=== PATIENT | female | born 1950 | race Caucasian/White ===

== ENCOUNTER 2019-02-28 12:53 | Inpatient (IN) | payer MEDICARE, BC ==
--- OUTSIDE RECORDS SUMMARY | 2019-02-28 13:10 | XMS REPORT | Continuity of Care Document ---
:1950 External Reference #:[id number] Author Name Sol Thorpe M.D., R.D. Address [address] [place] [address] Care Team Providers Name Role Phone Sol Thorpe M.D., RTrina Care Team Information Hyperbaric Tech Unavailable Payers Date Identification Numbers Payment Provider Subscriber Effective: 2017 Policy Number: [id number] Medicare - Bswny Umd Alta Ramos PayID: [id number] [address] [place] [address] Policy Number: [id number] [facility] Oneal Ramos Group Name: Brandon [address] PayID: [id number] [place] [address] Problems Active Problems Provider Date Hypothyroidism Sol Thorpe M.D., RTrina Onset: 01/17/2013 Depressive disorder Sol Thorpe M.D., RKadenDKaden Onset: 01/17/2013 Mixed hyperlipidemia Sol Thorpe M.D., RTrina Onset: 01/17/2013 Tobacco user Sol Thorpe M.D., RTrina Onset: 01/17/2013 Raynaud's disease Sol Thorpe M.D., R.DKaden Onset: 01/17/2013 Family History Date Family Member(s) Observation Comments General 5 Siblings-- One Sister Who Is Hypothyroid. Others Are Well., One Older Sibling The Rest Are Younger Father due to Airplane Crash Age 50 () Mother Hypothyroidism Mother Arthritis Social History Type Date Description Comments Sex Unknown Marital Status Patient is Living Situation Lives with spouse and sons Diet Diet with 3-4 fruits and veggies per day. Too much fat in her diet. She eats a meat potato and vegetable type diet. Not enough raw food. Some cheese and yogurt for calcium. 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 Now she will sneak a cigarette puff a few times a week. Alcohol weekend beer drinker 6-8 . Tobacco Use Start: Unknown End: Patient is a former smoker Unknown Drug Use Does not currently use illegal drugs Smoking Status Reviewed: 02/02/19 Patient is a former smoker Daily Caffeine Drinks on average 3 cups of coffee a day Exercise Type/Frequency No regular exercise. Current Sun Exposure Moderate amount of sun exposure. Does not use sunscreen. Has seen Dr. Roberts in the past Seat Belt/Car Seat Always uses a seat belt Currently Active The patient is currently sexually active occasionally. STD's No STD history Allergies, Adverse Reactions, Alerts Active Allergies Reaction Severity Comments Date PCN 11/19/2004 Medications Active Medications SIG Qnty Indications Ordering Date Provider Omeprazole 1 by mouth every 30caps R10.13 Sol Thorpe, 02/26/2019 20mg day M.Otoniel, R.D. Capsules Levothyroxine Sodium 1 by mouth every 90tabs E03.8 Sol Thorpe, 2017 day Severino.Otoniel, R.D. 100mcg Tablets Amlodipine Besylate Take One Tablet 30tabs Sol Thorpe, 08/26/2014 5mg By Mouth Every M.D., R.D. 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 150mg Tablets ER 24HR Day Multivitamin & Sol Thorpe, 11/23/2010 Mineral M.Otoniel, R.D. Pill Aspir-81 Cristy Hailey 08/02/[address] Tony Terrell Celexa Take 1/2 Tablet 30tabs F32.9 Sol Thorpe, 06/14/2007 20mg Tablets By Mouth Once Aravind, R.D. Daily History Medications Azithromycin take 2 tablets by 6tabs J18.9 Chet 02/02/2019 - 250mg mouth one time MD Lawanda 02/23/2019 Tablets then take one daily for 4 days SMZ-TMP DS 1 po bid for 5 10tabs Sol Thorpe, 03/26/2015 - 800-160mg days Aravind, R.D. 03/26/2015 Tablets Nitrofurantoin 1 po bid 10caps Sol Thorpe, 03/26/2015 - Macrocrystal Aravind, R.D. 09/20/2018 100mg Capsules Ciprofloxacin HCL 1 by mouth twice a 10tabs Sol Thorpe, 03/25/2015 - 250mg day Aravind, R.D. 03/26/2015 Tablets Prednisone take 2 tablets 10tabs Sol Thorpe, 12/30/2014 - 20mg Tablets daily for 5 days Aravind, R.DKaden 03/24/2015 Zostavax pls administesr QS Sol Thorpe, 08/26/2014 - vaccine Aravind, R.D. 03/24/2015 63919Ltx/0.65ML Solution Rec Econazole Nitrate apply to rash area 30g 110.4 Sol Thorpe, 04/29/2014 - 1% twice a day as Aravind, R.D. 03/24/2015 Cream needed Levothyroxine Sodium Take One Tablet By 90tabs E03.8 Sol Thorpe, 11/13 - Mouth Every Day Aravind, R.D. 10/02/2018 112mcg Tablets Chantix Use as Directed QS 305.1 Sol Thorpe, 08/20/2008 - Starter Pack Aravind, R.D. 12/04/2012 Misc Synthroid 1 PO qd 90tabs 244.8 Durga Ivy M.D. 12/23/2007 - 100mcg 11/13/2009 Tablets Synthroid one po qd 30tabs 244.8 Cristy Hailey 06/14/2007 - 125mcg Nidhi, 07/24/2008 Tablets [facility] Zithromax Z-Joselito two by mouth every 6tabs Sol Thorpe, 11/19/2004 - 250mg day today and then M.Otoniel, R.D. 03/24/2015 Tablets one by mouth every day for 4 days [place]ort Mdi 4 Puffs bid as 20Grams Cassie Payne 11/19/2004 - Inhaler Directed For 2-4 Blegen, Aravind 08/02/2007 Weeks, Rinse Mouth After Vitamins A & D 1 po Qd Unknown - 09/20/2018 5000-400Unit Capsules Immunizations CPT Code Status Date Vaccine Lot # 11617 Given 09/20/2018 Prevnar-13 Pneumococcal Conjugate Vaccine [id number] Given 10/28/2014 Pneumovax 23 (PPSV23) 65+ years or high risk 2 to [id number] 66 year old 40966 Given 09/03/2014 Zoster Vaccine [id number] Given 08/08/2007 Tdap (Adacel) [id number] Ordered 07/17/2010 Influenza Vaccine-Preservative Free 3 Yrs And Above Vital Signs Date Vital Result Comment 02/26/2019 2:51pm Weight 117.00 lb Weight 53.071 kg BP Systolic 118 mmHg BP Diastolic 64 mmHg Heart Rate 72 /min Body Temperature 97.5 F Respiratory Rate 16 /min 02/23/2019 1:19pm Weight 113.00 lb Weight 51.257 kg BP Systolic 110 mmHg BP Diastolic 70 mmHg Heart Rate 63 /min Body Temperature 98.9 F Respiratory Rate 16 /min O2 % BldC Oximetry 99 % 02/02/2019 2:54pm Weight 116.00 lb Weight 52.618 kg BP Systolic 102 mmHg BP Diastolic 64 mmHg Heart Rate 60 /min Body Temperature 98.8 F Respiratory Rate 20 /min O2 % BldC Oximetry 96 % 09/20/2018 4:18pm Weight 120.00 lb Weight 54.432 kg BP Systolic 142 mmHg BP Diastolic 86 mmHg Heart Rate 70 /min Body Temperature 98.8 F Respiratory Rate 16 /min Height 63.5 inches 5'3.50" BMI (Body Mass Index) 20.9 kg/m2 O2 % BldC Oximetry 99 % 03/24/2015 9:35am Weight 163.00 lb Weight 73.937 kg BP Systolic 150 mmHg BP Diastolic 82 mmHg Heart Rate 72 /min Height 65 inches 5'5" BMI (Body Mass Index) 27.1 kg/m2 12/30/2014 11:58am Weight 160.00 lb Weight 72.576 kg BP Systolic 100 mmHg BP Diastolic 70 mmHg Heart Rate 30 /min Body Temperature 97.9 F O2 % BldC Oximetry 89 % On Room Air/98% on pawel 10/28/2014 4:15pm Weight 160.00 lb Weight 72.576 kg BP Systolic 144 mmHg BP Diastolic 76 mmHg Heart Rate 72 /min 08/26/2014 12:59pm Weight 154.00 lb Weight 69.854 kg BP Systolic 144 mmHg BP Diastolic 86 mmHg Heart Rate 84 /min Height 64.5 inches 5'4.50" BMI (Body Mass Index) 26.0 kg/m2 06/19/2014 2:50pm Weight 163.00 lb Weight 73.937 kg BP Systolic 180 mmHg Pawel 160/80 BP Diastolic 90 mmHg Pawel 160/80 Heart Rate 86 /min O2 % BldC Oximetry 98 % 04/29/2014 9:18am Weight 164.00 lb Weight 74.390 kg BP Systolic 122 mmHg BP Diastolic 100 mmHg Heart Rate 76 /min 12/04/2012 4:30pm Weight 162.00 lb Weight 73.483 kg BP Systolic 130 mmHg BP Diastolic 74 mmHg Heart Rate 68 /min 11/23/2010 1:29pm Weight 157.00 lb Weight 71.215 kg BP Systolic 156 mmHg BP Diastolic 86 mmHg Heart Rate 88 /min Height 64.5 inches 5'4.50" BMI (Body Mass Index) 26.5 kg/m2 11/13/2009 9:55am Weight 164.00 lb Weight 74.390 kg BP Systolic 128 mmHg BP Diastolic 78 mmHg Heart Rate 76 /min Height 64.25 inches 5'4.25" BMI (Body Mass Index) 27.9 kg/m2 08/20/2008 8:57am Weight 161.00 lb Weight 73.030 kg BP Systolic 134 mmHg BP Diastolic 74 mmHg Heart Rate 88 /min Height 64.5 inches 5'4.50" BMI (Body Mass Index) 27.2 kg/m2 08/02/2007 11:47am Weight 162.00 lb Weight 73.483 kg BP Systolic 124 mmHg BP Diastolic 78 mmHg Heart Rate 84 /min Height 64.75 inches 5'4.75" BMI (Body Mass Index) 27.2 kg/m2 06/14/2007 2:59pm Weight 160.00 lb Weight 72.576 kg BP Systolic 110 mmHg BP Diastolic 80 mmHg Heart Rate 80 /min 11/24/2004 10:40am Weight 169.00 lb Weight 76.658 kg BP Systolic 130 mmHg BP Diastolic 70 mmHg Heart Rate 80 /min 11/19/2004 12:28pm Weight 168.00 lb Weight 76.205 kg BP Systolic 128 mmHg BP Diastolic 80 mmHg Heart Rate 93 /min Body Temperature 98.1 F O2 % BldC Oximetry 96 % 06/18/2003 3:52pm Weight 154.00 lb Weight 69.854 kg BP Systolic 130 mmHg BP Diastolic 80 mmHg Body Temperature 99.0 F Results Test Date Facility Test Result H/L Range Note CBC Auto Diff 02/23/2019 [facility] White Blood 7.2 10^3/uL N 3.5-10.8 [phone] Count Red Blood Count 2.50 10^6/uL Low 3.70-4.87 Hemoglobin 7.7 g/dL Low 12.0-16.0 Hematocrit 24 % Low 35-47 Mean Corpuscular Volume 95 fL N 80-97 Mean Corpuscular Hemoglobin 31 pg N 27-31 Mean Corpuscular HGB Conc 32 g/dL N 31-36 Red Cell Distribution Width 18 % High 10.5-15 Platelet Count 315 10^3/uL N 150-450 Mean Platelet Volume 8.4 fL N 7.4-10.4 Abs Neutrophils 5.0 10^3/uL N 1.5-7.7 Abs Lymphocytes 1.4 10^3/uL N 1.0-4.8 Abs Monocytes 0.4 10^3/uL N 0-0.8 Abs Eosinophils 0.3 10^3/uL N 0-0.6 Abs Basophils 0.1 10^3/uL N 0-0.2 Abs Nucleated RBC 0.0 10^3/uL Granulocyte % 68.5 % Lymphocyte % 20.1 % Monocyte % 5.6 % Eosinophil % 4.0 % Basophil % 1.8 % Nucleated Red Blood Cells % 0.1 Laboratory test 02/23/2019 [facility] Vitamin B12 427 pg/mL N 180-914 1 finding [phone] Vitamin D Total 25(Oh) 62.4 ng/mL High 20-50 2 Lyme Screen W/ Reflex To WB Negative Negative Basic Metabolic 02/23/2019 [facility] Sodium 134 mmol /L Low 135-145 Panel [phone] Potassium 4.1 mmol/L N 3.5-5.0 Chloride 102 mmol/L N 101-111 Co2 Carbon Dioxide 25 mmol/L N 22-32 Anion Gap 7 mmol/L N 2-11 Glucose 88 mg/dL N 70-100 Blood Urea Nitrogen 19 mg/dL N 6-24 Creatinine 0.88 mg/dL N 0.51-0.95 BUN/Creatinine Ratio 21.6 High 8-20 Calcium 9.8 mg/dL N 8.6-10.3 Egfr Non- 64.3 >60 Egfr 77.8 >60 3 Laboratory test 01/26/2019 [facility] TSH (Thyroid 0.93 N 0.34-5.60 finding [phone] Stimulating mcIU/mL Horm) Free T4 1.13 ng/dL High 0.61-1.12 Total T3 63 ng/dL Low 87-178 Laboratory test 11/17/2018 [facility] Surgical SEE RESULT 4 finding [phone] Interface Order BELOW Laboratory test 09/29/2018 [facility] TSH (Thyroid 0.10 Low 0.34- finding [phone] Stimulating mcIU/mL 5.60 Horm) CBC Auto Diff 09/29/2018 [facility] White Blood 4.6 10^3/uL N 3.5-5 [phone] Count 0.8 Red Blood Count 4.19 10^6/uL N 4.00-5.40 Hemoglobin 12.2 g/dL N 12.0-16.0 Hematocrit 38 % N 35-47 Mean Corpuscular Volume 91 fL N 80-97 Mean Corpuscular Hemoglobin 29 pg N 27-31 Mean Corpuscular HGB Conc 32 g/dL N 31-36 Red Cell Distribution Width 20 % High 10.5-15 Platelet Count 264 10^3/uL N 150-450 Mean Platelet Volume 8.2 fL N 7.4-10.4 Abs Neutrophils 2.9 10^3/uL N 1.5-7.7 Abs Lymphocytes 1.0 10^3/uL N 1.0-4.8 Abs Monocytes 0.4 10^3/uL N 0-0.8 Abs Eosinophils 0.2 10^3/uL N 0-0.6 Abs Basophils 0.1 10^3/uL N 0-0.2 Abs Nucleated RBC 0 10^3/uL Granulocyte % 62.8 % Lymphocyte % 21.6 % Monocyte % 9.7 % Eosinophil % 4.7 % Basophil % 1.2 % Nucleated Red Blood Cells % 0 Comp Metabolic Panel 09/29/2018 [facility] Sodium 136 mmol/L N 135-145 [phone] Potassium 4.2 mmol/L N 3.5-5.0 Chloride 96 mmol/L Low 101-111 Co2 Carbon Dioxide 31 mmol/L N 22-32 Anion Gap 9 mmol/L N 2-11 Glucose 81 mg/dL N 70-100 Blood Urea Nitrogen 13 mg/dL N 6-24 Creatinine 0.66 mg/dL N 0.51-0.95 BUN/Creatinine Ratio 19.7 N 8-20 Calcium 9.4 mg/dL N 8.6-10.3 Total Protein 6.8 g/dL N 6.4-8.9 Albumin 4.1 g/dL N 3.2-5.2 Globulin 2.7 g/dL N 2-4 Albumin/Globulin Ratio 1.5 N 1-3 Total Bilirubin 0.40 mg/dL N 0.2-1.0 Alkaline Phosphatase 104 U/L N 34-104 Alt 25 U/L N 7-52 Ast 40 U/L High 13-39 Egfr Non- 89.6 >60 Egfr 108.4 >60 5 Lipid Profile 09/29/2018 [facility] Triglycerides 68 mg/dL 6 (Trig/Chol/HDL) [phone] Cholesterol 151 mg/dL 7 HDL Cholesterol 85.8 mg/dL 8 LDL Cholesterol 52 mg/dL 9 Laboratory test 08/21/2018 [facility] Erythrocyte Sed 19 mm/Hr N 0-40 finding [phone] Rate Hepatitis B Surface Ag Nonreactive Nonreactive Hepatitis B Core AB Igm Nonreactive Nonreactive Hepatitis A AB Igm Nonreactive Nonreactive Hepatitis C Antibody High Reactive Abnormal Nonreactive 10 Creatine Kinase(CK) 73 U/L N 10-223 C Reactive Protein 1.11 mg/L N <8.01 Rheumatoid Factor 137 IU/mL High <15 Hepatitis C Rna Quant Undetected IU/mL Undetected 11 Connective Tissue 08/21/2018 [facility] Anti-Nuclear 0.4 U 12 Panel [phone] Antibody Cyclic Citrullinated Peptide <15.6 U 13 Interpretation See Comment 14 Laboratory test 08/21/2018 [facility] Vitamin D, 1,25 TNP () 15 finding [phone] Dihydroxy Connective Tissue 08/21/2018 [facility] Anti-Nuclear 0.4 U 16 Panel [phone] Antibody Cyclic Citrullinated Peptide <15.6 U 17 Interpretation See Comment 18 Connective Tissue 08/21/2018 [facility] Anti-Nuclear 0.4 U 19 Panel [phone] Antibody Cyclic Citrullinated Peptide <15.6 U 20 Interpretation See Comment 21 Laboratory test 08/21/2018 [facility] Vitamin D TNP () 22 finding [phone] 1,25-Dihydroxy 1,25 Dihydroxy 08/21/2018 [facility] Vitamin D 1,25 ( Oh) 18 pg/mL 18-72 Vitamin D [phone] 2, Total Vitamin D3 1,25 (Oh) 2 18 pg/mL Vitamin D2 1,25 (Oh) 2 <8 pg/mL 23 Connective Tissue 08/21/2018 [facility] Anti-Nuclear 0.4 U 24 Panel [phone] Antibody Cyclic Citrullinated Peptide <15.6 U 25 Interpretation See Comment 26 Connective Tissue 08/21/2018 [facility] Anti-Nuclear 0.4 U 27 Panel [phone] Antibody Cyclic Citrullinated Peptide <15.6 U 28 Interpretation See Comment 29 Connective Tissue 08/21/2018 [facility] Anti-Nuclear 0.4 U 30 Panel [phone] Antibody Cyclic Citrullinated Peptide <15.6 U 31 Interpretation See Comment 32 Connective Tissue 08/21/2018 [facility] Anti-Nuclear 0.4 U 33 Panel [phone] Antibody Cyclic Citrullinated Peptide <15.6 U 34 Interpretation See Comment 35 Laboratory test 03/24/2015 [facility] Urine Culture And SEE RESULT 36 finding [phone] Sensitivities BELOW Laboratory test 03/24/2015 [facility] Cytology Interface SEE RESULT 37 finding [phone] Order BELOW HPV Rna w/Reflex Genotype Negative N Negative 38 Urine DIP 03/24/2015 [facility] Specific [place] 1.005 Low 1.01-1.02 [phone] Urine pH 7 High 5-6 Leukocytes + Neg Urine Nitrites NEG Neg Total Protein, Urine NEG Neg Urine Glucose NORM Norm Urine Ketones NEG Neg Urobilinogen NORM Norm Urine Bilirubin + Neg Urine Blood TRACE Neg Basic Metabolic 02/07/2015 [facility] Sodium 138 mmol /L N 133-145 Panel [phone] Potassium 4.5 mmol/L N 3.5-5.0 Chloride 105 mmol/L N 101-111 Co2 Carbon Dioxide 26 mmol/L N 22-32 Anion Gap 7 mmol/L N 2-11 Glucose 100 mg/dL N 70-100 Blood Urea Nitrogen 22 mg/dL N 6-24 Creatinine 0.80 mg/dL N 0.51-0.95 BUN/Creatinine Ratio 27.5 High 8-20 Calcium 10.2 mg/dL N 8.6-10.3 Egfr Non- 72.7 N >60 Egfr 93.5 N >60 39 CBC Auto Diff 12/30/2014 [facility] White Blood 10.3 10^3/uL N 4.8-10.8 [phone] Count Red Blood Count 4.48 10^6/uL N 4.0-5.4 Hemoglobin 14.2 g/dL N 12.0-16.0 Hematocrit 43 % N 35-47 Mean Corpuscular Volume 96 fL N 80-97 Mean Corpuscular Hemoglobin 32 pg High 27-31 Mean Corpuscular HGB Conc 33 g/dL N 31-36 Red Cell Distribution Width 14 % N 10.5-15 Platelet Count 259 10^3/uL N 150-450 Mean Platelet Volume 9 um3 N 7.4-10.4 Abs Neutrophils 5.6 10^3/uL N 1.5-7.7 Abs Lymphocytes 3.5 10^3/uL N 1.0-4.8 Abs Monocytes 0.9 10^3/uL High 0-0.8 Abs Eosinophils 0.3 10^3/uL N 0-0.6 Abs Basophils 0.1 10^3/uL N 0-0.2 Abs Nucleated RBC 0.03 10^3/uL N Granulocyte % 54.6 % N 38-83 Lymphocyte % 33.8 % N 25-47 Monocyte % 8.4 % N 1-9 Eosinophil % 2.6 % N 0-6 Basophil % 0.6 % N 0-2 Nucleated Red Blood Cells % 0.3 N Laboratory test 12/30/2014 [facility] TSH (Thyroid 0.42 IU/mL N 0.34-5.60 finding [phone] Stimulating Horm) Comp Metabolic 12/30/2014 [facility] Sodium 133 mmol/ L N 133-145 Panel [phone] Potassium 4.1 mmol/L N 3.5-5.0 Chloride 98 mmol/L Low 101-111 Co2 Carbon Dioxide 26 mmol/L N 22-32 Anion Gap 9 mmol/L N 2-11 Glucose 97 mg/dL N 70-100 Blood Urea Nitrogen 13 mg/dL N 6-24 Creatinine 0.81 mg/dL N 0.51-0.95 BUN/Creatinine Ratio 16.0 N 8-20 Calcium 9.7 mg/dL N 8.6-10.3 Total Protein 6.7 g/dL N 6.4-8.9 Albumin 3.8 g/dL N 3.2-5.2 Globulin 2.9 g/dL N 2-4 Albumin/Globulin Ratio 1.3 N 1-3 Total Bilirubin 0.50 mg/dL N 0.2-1.0 Alkaline Phosphatase 73 U/L N 34-104 Alt 25 U/L N 7-52 Ast 21 U/L N 13-39 Egfr Non- 71.6 N >60 Egfr 92.1 N >60 40 Laboratory test 12/30/2014 [facility] Creatine 81 U/ L N 10-223 finding [phone] Kinase Type & Screen 07/31/2014 [facility] Patient Blood O Positive N [phone] Type Antibody Screen NEGATIVE N Basic Metabolic 07/31/2014 [facility] Sodium 137 mmol /L N 133-145 Panel [phone] Potassium 4.2 mmol/L N 3.7-5.6 Chloride 105 mmol/L N 101-111 Co2 Carbon Dioxide 25 mmol/L N 22-32 Anion Gap 7 mmol/L N 2-11 Glucose 94 mg/dL N 70-100 Blood Urea Nitrogen 13 mg/dL N 6-24 Creatinine 0.71 mg/dL N 0.51-0.95 BUN/Creatinine Ratio 18.3 N 8-20 Calcium 9.9 mg/dL N 8.6-10.3 Egfr Non- 83.7 N >60 Egfr 107.6 N >60 41 CBC Auto Diff 07/31/2014 [facility] White Blood 6.8 10^3/uL N 4.8-10.8 [phone] Count Red Blood Count 4.01 10^6/uL N 4.0-5.4 Hemoglobin 13.5 g/dL N 12.0-16.0 Hematocrit 40 % N 35-47 Mean Corpuscular Volume 99 fL High 80-97 Mean Corpuscular Hemoglobin 34 pg High 27-31 Mean Corpuscular HGB Conc 34 g/dL N 31-36 Red Cell Distribution Width 14 % N 10.5-15 Platelet Count 279 10^3/uL N 150-450 Mean Platelet Volume 8 um3 N 7.4-10.4 Abs Neutrophils 4.0 10^3/uL N 1.5-7.7 Abs Lymphocytes 2.0 10^3/uL N 1.0-4.8 Abs Monocytes 0.3 10^3/uL N 0-0.8 Abs Eosinophils 0.3 10^3/uL N 0-0.6 Abs Basophils 0.1 10^3/uL N 0-0.2 Abs Nucleated RBC 0 10^3/uL N Granulocyte % 59.3 % N 38-83 Lymphocyte % 29.8 % N 25-47 Monocyte % 5.0 % N 1-9 Eosinophil % 4.6 % N 0-6 Basophil % 1.3 % N 0-2 Nucleated Red Blood Cells % 0 N Laboratory test 07/01/2014 [facility] Inr 0.84 Low 0.85-1.06 finding [phone] Activated Partial Thrombo Time 20.1 seconds Low 24.0-36.1 Laboratory test 06/10/2014 [facility] Hepatitis C Undetected N Undetected 42 finding [phone] Rna IU/mL Quantitative Cryoglobulin & 06/07/2014 [facility] Cryoglobulin Negative N Negative 43 Cryofibrinogen [phone] Cryofibrinogen Negative N Negative 44 Vitamin D, 25 06/07/2014 [facility] 25-Hydroxy Vitamin <4.0 ng/mL N Hydroxy [phone] D2 25-Hydroxy Vitamin D3 42 ng/mL N 25-Hydroxy Vitamin D Total 42 ng/mL N 45 Comp Metabolic Panel 06/07/2014 [facility] Sodium 136 mmol/L N 133-145 [phone] Potassium 3.5 mmol/L Low 3.7-5.6 Chloride 104 mmol/L N 101-111 Co2 Carbon Dioxide 23 mmol/L N 22-32 Anion Gap 9 mmol/L N 2-11 Glucose 119 mg/dL High 70-100 Blood Urea Nitrogen 11 mg/dL N 6-24 Creatinine 0.77 mg/dL N 0.51-0.95 BUN/Creatinine Ratio 14.3 N 8-20 Calcium 9.5 mg/dL N 8.6-10.3 Total Protein 7.0 g/dL N 6.4-8.9 Albumin 4.2 g/dL N 3.2-5.2 Globulin 2.8 g/dL N 2-4 Albumin/Globulin Ratio 1.5 N 1-3 Total Bilirubin 0.40 mg/dL N 0.2-1.0 Alkaline Phosphatase 61 U/L N 34-104 Alt 23 U/L N 7-52 Ast 19 U/L N 13-39 Egfr Non- 76.2 N >60 Egfr 98.0 N >60 46 Laboratory test 06/07/2014 [facility] CRP High 1.73 mg/L N 47 finding [phone] Sensitivity CBC Auto Diff 06/07/2014 [facility] White Blood Count 8.5 N 4.8-10 [phone] 10^3/uL .8 Red Blood Count 3.83 10^6/uL Low 4.0-5.4 Hemoglobin 13.0 g/dL N 12.0-16.0 Hematocrit 38 % N 35-47 Mean Corpuscular Volume 99 fL High 80-97 Mean Corpuscular Hemoglobin 34 pg High 27-31 Mean Corpuscular HGB Conc 34 g/dL N 31-36 Red Cell Distribution Width 13 % N 10.5-15 Platelet Count 250 10^3/uL N 150-450 Mean Platelet Volume 8 um3 N 7.4-10.4 Abs Neutrophils 4.6 10^3/uL N 1.5-7.7 Abs Lymphocytes 2.8 10^3/uL N 1.0-4.8 Abs Monocytes 0.5 10^3/uL N 0-0.8 Abs Eosinophils 0.5 10^3/uL N 0-0.6 Abs Basophils 0.1 10^3/uL N 0-0.2 Abs Nucleated RBC 0.01 10^3/uL N Granulocyte % 54.5 % N 38-83 Lymphocyte % 32.9 % N 25-47 Monocyte % 6.3 % N 1-9 Eosinophil % 5.5 % N 0-6 Basophil % 0.8 % N 0-2 Nucleated Red Blood Cells % 0.1 N Laboratory test 06/07/2014 [facility] Erythrocyte Sed 11 mm/Hr N 0-30 finding [phone] Rate Hepatitis B Surface Antigen Nonreactive N Nonreactive Hepatitis C Antibody High Reactive Abnormal Nonreactive 48 Protein 06/07/2014 [facility] Total 7.1 g/dL N 6.3 - Electrophoresis [phone] Protein(Pep) 7.9 Albumin 3.4 g/dL N 3.4-4.7 Alpha-1 Globulin 0.3 g/dL N 0.1-0.3 Alpha-2 Globulin 1.1 g/dL Abnormal 0.6-1.0 Beta Globulin 1.1 g/dL N 0.7-1.2 Gamma Globulin 1.2 g/dL N 0.6-1.6 Albumin/Globulin Ratio 0.91 N Impression See Comment N 49 Laboratory test 04/29/2014 [facility] Anitha (Anti- Nuclear Negative N Negative finding [phone] AB) Screen Erythrocyte Sed Rate 11 mm/Hr N 0-30 Rheumatoid Factor 131 IU/mL Abnormal <15 50 Cyclic Citrullinated Pept IgG <15.6 U N 51 TSH (Thyroid Stimulating Horm) 0.34 IU/mL N 0.34-5.60 Total T3 0.99 ng/mL N 0.87-1.78 Free T4 1.09 ng/mL N 0.61-1.12 Laboratory test 12/05/2012 [facility] TSH (Thyroid 0.34 0.34-5.60 finding [phone] Stimulating Horm) miu/mL Lipid Profile 12/05/2012 [facility] Triglycerides 179 mg/dL 40-200 (Trig/Chol/HDL) [phone] Cholesterol 220 mg/dL High Less than 200 HDL Cholesterol 54 mg/dL 40-60 52 Cholesterol/HDL Ratio 4.1 Average 1-4.44 LDL Cholesterol 130.2 mg/dL High Less Than 100 53 Laboratory test 12/05/2012 [facility] Rheumatoid 318 IU/mL Abnormal <15 54 finding [phone] Factor Erythrocyte Sed Rate 8 mm/Hr 0-30 Antiha (Anti-Nuclear AB) Screen Negative Negative Lipid Profile 11/23/2010 [facility] Triglyceride 88 mg/dL 40-200 (Trig/Chol/HDL) [phone] Cholesterol 228 mg/dL High Less Than 200 55 High Density Lipoprotein 66 mg/dL High 40-60 56 Cholesterol/HDL Ratio 3.45 AVERAGE 1-4.44 Low Density Lipoprotein 144 mg/dL High Less Than 100 57 Laboratory test 11/23/2010 [facility] TSH 0.57 MIU/ ML 0.34-5.60 finding [phone] Comp Metabolic 11/23/2010 [facility] Sodium 137 mmol/ L 135-145 Panel [phone] Potassium 4.2 mmol/L 3.5-5.0 Chloride 104 mmol/L 101-111 Co2 (Carbon Dioxide) 24.0 mmol/L 22-32 Anion Gap 9.0 mmol/L 2-11 58 Glucose 93 mg/dL 70-100 BUN 12 mg/dL 6-24 Creatinine 0.70 mg/dL 0.50-1.40 One Over Creatinine 1.40 BUN/Creatinine Ratio 17.1 8-20 Calcium 9.9 mg/dL 8.1-9.9 Total Protein 7.8 GM/DL 6.2-8.1 Albumin 4.5 GM/DL 3.6-5.4 Globulin 3.3 GM/DL 2-4 Albumin/Globulin Ratio 1.4 1-3 Bilirubin Total 0.6 mg/dL 0.4-1.5 59 Alkaline Phosphatase 79 U/L 30-110 Alt (SGPT) 27 U/L 14-54 Ast (Sgot) 23 U/L 12-42 eGFR Non- 85.9 > 60 eGFR 110.5 > 60 60 Urine DIP 11/23/2010 [facility] House [facility] Leukocytes TRACE Neg (607)- - Urine Nitrites NEG Neg Urine pH 5 5-6 Total Protein, Urine NEG Neg Urine Glucose NORM Norm Urine Ketones NEG Neg Urobilinogen NORM Norm Urine Bilirubin NEG Neg Urine Blood NEG Neg Specific [place] NA Low 1.01-1.02 Laboratory test 11/23/2010 [facility] Cytology ------ 61 finding [phone] <SEE NOTE> Laboratory test 12/25/2009 [facility] TSH 0.410 uIU/ml 0.35 finding [phone] (Thyrotropin 0-5. ) 500 T-4 Free 1.2 ng/dL 0.8-1.8 Urine DIP 11/13/2009 In House Lab Leukocytes NEG Neg (607)- - Urine Nitrites NEG Neg Urine pH 5 5-6 Total Protein, Urine NEG Neg Urine Glucose NORM Norm Urine Ketones NEG Neg Urobilinogen NORM Norm Urine Bilirubin NEG Neg Urine Blood NEG Neg Specific [place] N/A Low 1.01-1.02 Laboratory test 11/13/2009 [facility] Thin Prep SEE NOTE 62 finding [phone] W/HPV(Lsil/DONOVAN/Asc) Lipid Panel 11/10/2009 [facility] Cholesterol, Total 183 <200 [phone] mg/dL Triglycerides 154 mg/dL Abnormal <150 HDL Cholesterol 44 mg/dL 40-60 Chol/HDL Cholesterol 4.2 63 LDL Cholesterol, Calc. 108 mg/dL Abnormal 64 LDL/HDL Cholesterol 2.5 65 Comprehensive 11/10/2009 [facility] Glucose 104 mg/dL High 70-100 Metabolic [phone] BUN 14 mg/dL 4-18 Creatinine, Serum 0.62 mg/dL 0.50-1.10 Sodium 140 mmol/L 136-146 Potassium 4.3 mmol/L 3.5-5.3 Chloride 109 mmol/L 98-110 Carbon Dioxide 26 mmol/L 20-32 Albumin 4.2 g/dL 3.5-4.7 Protein, Total 7.1 g/dL 6.4-8.3 Calcium 9.4 mg/dL 8.4-10.4 Alkaline Phosphatase 87 U/L 10-118 Sgot (Ast) 21 U/L 3-40 SGPT (Alt) 24 U/L 7-50 Bilirubin, Total 0.20 mg/dL Low 0.30-1.20 Laboratory 11/10/2009 [facility] TSH 3.000 0.350-5.500 test finding [phone] (Thyrotropin) uIU/ml GFR Calculated 11/10/2009 [facility] GFR (Calculated) >60 66 [phone] Laboratory 02/18/2009 [facility] TSH 1.460 0.350-5.500 test finding [phone] (Thyrotropin) uIU/ml T-4 Free 1.0 ng/dL 0.8-1.8 Surgical 09/06/2008 [facility] Surgical --- 67 Pathology [phone] Pathology <SEE NOTE> Lipid Profile 08/20/2008 [facility] Cholesterol, 224 mg/dL High 120 [phone] Total -20 0 HDL Cholesterol 58 mg/dL 40-60 LDL Cholesterol, Calc. 137 mg/dL AB 69 Triglycerides 145 mg/dL 70 LDL/HDL Cholesterol 2.4 71 Chol/HDL Cholesterol 3.9 72 Comprehensive Metabolic 08/20/2008 [facility] Glucose 90 mg /dL 70-100 [phone] BUN 18 mg/dL 4-18 Creatinine, Serum 0.9 mg/dL 0.5-1.2 Sodium 140 mmol/L 136-146 Potassium 4.2 mmol/L 3.5-5.3 Chloride 110 mmol/L 98-110 Carbon Dioxide 22 mmol/L 20-32 Albumin 4.8 g/dL High 3.5-4.7 Protein, Total 7.4 g/dL 6.4-8.3 Calcium 10.1 mg/dL 8.4-10.4 Alkaline Phosphatase 85 U/L 10-118 Sgot (Ast) 24 U/L 3-40 SGPT (Alt) 23 U/L 7-50 Bilirubin, Total 0.40 mg/dL 0.30-1.20 Laboratory test 08/20/2008 [facility] GFR (Calculated) >60 73 finding [phone] Laboratory test 08/20/2008 [facility] Thin Prep SEE NOTE 74 finding [phone] W/HPV(Lsil/DONOVAN/As c) Urine DIP 08/20/2008 [facility] Leukocytes NEG Neg (607)- - Urine Nitrites NEG Neg Urine pH 5 5-6 Total Protein, Urine NEG Neg Urine Glucose NORM Norm Urine Ketones NEG Neg Urobilinogen NORM Norm Urine Bilirubin NEG Neg Urine Blood NEG Neg Specific [place] NA Low 1.01-1.02 Laboratory test 07/03/2008 [facility] Thyroxine Free 0.74 NG/ML 0.61-1.24 75 finding [phone] TSH 0.90 MIU/ML 0.34-5.60 Laboratory 12/22/2007 [facility] TSH 0.320 Low 0.350- 5.500 test finding [phone] (Thyrotropin) uIU/ml T-4 Free 1.1 ng/dL 0.8-1.8 Laboratory test 08/08/2007 [facility] Vitamin B-12 801 pg/ mL 76 finding [phone] Laboratory test 08/02/2007 [facility] Thin Prep SEE NOTE 77 finding [phone] W/HPV(Lsil/DONOVAN/A sc) Urine DIP 08/02/2007 [facility] Leukocytes NEG Neg (607)- - Urine Nitrites NEG Neg Urine pH 5 5-6 Total Protein, Urine NEG Neg Urine Glucose NORM Norm Urine Ketones NEG Neg Urobilinogen NORM Norm Urine Bilirubin NEG Neg Urine Blood NEG Neg Specific [place] NORM Low 1.01-1.02 Laboratory 07/26/2007 [facility] TSH 0.410 0.350-5.500 test finding [phone] (Thyrotropin) uIU/ml Lipid Profile 07/26/2007 [facility] Cholesterol, 210 High 120-200 78 [phone] Total mg/dL HDL Cholesterol 47 mg/dL 40-60 LDL Cholesterol, Calc. 139 mg/dL AB 79 Triglycerides 120 mg/dL 80 LDL/HDL Cholesterol 3.0 81 Chol/HDL Cholesterol 4.5 82 Comprehensive 07/26/2007 [facility] Glucose 115 mg/dL High 70-100 Metabolic [phone] BUN 17 mg/dL 4-18 Creatinine, Serum 1.0 mg/dL 0.5-1.2 Sodium 141 mmol/L 136-146 Potassium 4.6 mmol/L 3.5-5.3 Chloride 110 mmol/L 98-110 Carbon Dioxide 23 mmol/L 20-32 Albumin 4.5 g/dL 3.5-4.7 Protein, Total 7.1 g/dL 6.4-8.2 Calcium 9.9 mg/dL 8.4-10.4 Alkaline Phosphatase 94 U/L 10-118 Sgot (Ast) 21 U/L 3-40 SGPT (Alt) 22 U/L 7-50 Bilirubin, Total 0.30 mg/dL 0.30-1.20 Laboratory test 07/26/2007 [facility] GFR (Calculated) >60 83 finding [phone] Laboratory test 11/19/2004 [facility] Oximetry - Single 96% finding (607)- - Study 1 Normal Range 180 to 914 Indeterminate Range 145 to 180 Deficient Range <145 2 Total 25-Hydroxyvitamin D2 and D3 (25-OH-VitD) <10 ng/mL (severe deficiency) 10-19 ng/mL (mild to moderate deficiency) 20-50 ng/mL (optimum levels) 51-80 ng/mL (increased risk of hypercalciuria) >80 ng/mL (toxicity possible) 3 Because ethnic data is not always readily available, this report includes an eGFR for both -Americans and non- Americans. The National Kidney Disease Education Program (NKDEP) does not endorse the use of the MDRD equation for patients that are not between the ages of 18 and 70, are , have extremes of body size, muscle mass, or nutritional status, or are non- or non-. According to the National Kidney Foundation, irrespective of diagnosis, the stage of the disease is based on the level of kidney function: Stage Description GFR(mL/min/1.73 m(2)) 1 Kidney damage with normal or decreased GFR 90 2 Kidney damage with mild decrease in GFR 60-89 3 Moderate decrease in GFR 30-59 4 Severe decrease in GFR 15-29 5 Kidney failure <15 (or dialysis) 4 SEE RESULT BELOW Name: ALTA RAMOS : [address]: Chuck Sanderson MD Acct: [id number] Unit: [id number] AGE: 68 Location: ENDO Re11/17/18 SEX: F Status: DEP REF SPEC: [id number] ENE: 11/17/18-1200 [facility] DR: Chuck Sanderson MD REQ: [id number] RECD: 11/17/18670 STATUS: JUJU NELSON DR: Sol Thorpe MD _ ORDERED: LEVEL 4 FINAL DIAGNOSIS Colon, 25 cm, biopsy: -- Hyperplastic polyp. CLINICAL HISTORY Screening/Surveillance for malignancy in asymptomatic patient POST-OPERATIVE DIAGNOSIS Colonoscopy: to cecum; fair; few diverticulosis; at 25 cm polyp GROSS DESCRIPTION The specimen is received in formalin labeled, Biopsy Colon Polyp at 25 cm, and consists of a 0.3 x 0.2 x 0.1 cm horton-pink polypoid soft tissue fragment which is submitted entirely in one cassette. Signed by and Reported on: Errol Carmichael MD 02/02 1301 END OF REPORT DEPARTMENT OF PATHOLOGY, [address] [place] [address] Errol Carmichael M.D. Director [facility] # [id number] 5 Because ethnic data is not always readily available, this report includes an eGFR for both -Americans and non- Americans. The National Kidney Disease Education Program (NKDEP) does not endorse the use of the MDRD equation for patients that are not between the ages of 18 and 70, are , have extremes of body size, muscle mass, or nutritional status, or are non- or non-. According to the National Kidney Foundation, irrespective of diagnosis, the stage of the disease is based on the level of kidney function: Stage Description GFR(mL/min/1.73 m(2)) 1 Kidney damage with normal or decreased GFR 90 2 Kidney damage with mild decrease in GFR 60-89 3 Moderate decrease in GFR 30-59 4 Severe decrease in GFR 15-29 5 Kidney failure <15 (or dialysis) 6 Desirable: <150 Borderline High: 150-199 High: 200-499 Very High: >500 7 Desirable: <200 Borderline High: 200-239 High: >239 8 Low: <40 Desirable: 40-60 High: >60 9 Desirable: <100 Near Optimal: 100-129 Borderline High: 130-159 High: 160-189 Very High: >189 10 High reactive sample are considered positive for Hepatitis C 11 Result in log IU/mL is Undetected. ADDITIONAL INFORMATION The quantification range of this assay is 15 to 100,000,000 IU/mL (1.18 log to 8.00 log IU/mL). Testing was performed using the nasir HCV test ([employer] with the nasir [employer] System. Test Performed by: [facility] - [address] [address] 12 REFERENCE VALUE <=1.0 (Negative) 13 REFERENCE VALUE <20.0 (Negative) 14 Tests for antibodies to dsDNA and HERBERTH antigens are not performed automatically unless the ANITHA result is > or= 3.0 U. Studies performed at [facility] indicate that positive ANITHA results <3.0 U are rarely accompanied by positive second order tests. Test Performed by: [facility] - [address] [address] 15 1,25-Dihydroxyvitamin D, S was cancelled on 08/24/2018 at 10:03; Assay temporarily down. Specimen forwarded to [facility] Test Performed by: [facility] - [address] [address] 16 REFERENCE VALUE <=1.0 (Negative) 17 REFERENCE VALUE <20.0 (Negative) 18 Tests for antibodies to dsDNA and HERBERTH antigens are not performed automatically unless the ANITHA result is > or= 3.0 U. Studies performed at [facility] indicate that positive ANITHA results <3.0 U are rarely accompanied by positive second order tests. Test Performed by: [facility] - [address] [address] 19 REFERENCE VALUE <=1.0 (Negative) 20 REFERENCE VALUE <20.0 (Negative) 21 Tests for antibodies to dsDNA and HERBERTH antigens are not performed automatically unless the ANITHA result is > or= 3.0 U. Studies performed at [facility] indicate that positive ANITHA results <3.0 U are rarely accompanied by positive second order tests. Test Performed by: [facility] - [address] [address] 22 1,25-Dihydroxyvitamin D, S was cancelled on 08/24/2018 at 10:03; Assay temporarily down. Specimen forwarded to [facility] Test Performed by: [facility] - [facility] [address] [place] [address] 23 Vitamin D3, 1,25(OH) indicates both endogenous production and supplementation. Vitamin D2, 1,25(OH)2 is an indicator of exogenous sources, such as diet or supplementation. Interpretation and therapy are based on measurement of Vitamin D, 1,25 (OH)2, Total. This test was developed and its analytical performance characteristics have been determined by [employer] [place] [facility]. It has not been cleared or approved by the US Food and Drug Administration. This assay has been validated pursuant to the CLIA regulations and is used for clinical purposes. Test Performed at: [facility], [id number] [place] [id number] Sim Guerra MD, PhD Test Performed by: [facility] [address] [facility] [place] [address] 24 REFERENCE VALUE <=1.0 (Negative) 25 REFERENCE VALUE <20.0 (Negative) 26 Tests for antibodies to dsDNA and HERBERTH antigens are not performed automatically unless the ANITHA result is > or= 3.0 U. Studies performed at [facility] indicate that positive ANITHA results <3.0 U are rarely accompanied by positive second order tests. Test Performed by: [facility] - [address] [address] 27 REFERENCE VALUE <=1.0 (Negative) 28 REFERENCE VALUE <20.0 (Negative) 29 Tests for antibodies to dsDNA and HERBERTH antigens are not performed automatically unless the ANITHA result is > or= 3.0 U. Studies performed at [facility] indicate that positive ANITHA results <3.0 U are rarely accompanied by positive second order tests. Test Performed by: [facility] - [facility] [address] [place] [address] 30 REFERENCE VALUE <=1.0 (Negative) 31 REFERENCE VALUE <20.0 (Negative) 32 Tests for antibodies to dsDNA and HERBERTH antigens are not performed automatically unless the ANITHA result is > or= 3.0 U. Studies performed at [facility] indicate that positive ANITHA results <3.0 U are rarely accompanied by positive second order tests. Test Performed by: [facility] - [address] [address] 33 REFERENCE VALUE <=1.0 (Negative) 34 REFERENCE VALUE <20.0 (Negative) 35 Tests for antibodies to dsDNA and HERBERTH antigens are not performed automatically unless the ANITHA result is > or= 3.0 U. Studies performed at [facility] indicate that positive ANITHA results <3.0 U are rarely accompanied by positive second order tests. Test Performed by: [facility] - [address] [address] 36 SEE RESULT BELOW Name: ALTA RAMOS : [address]: Sol Thorpe MD Acct: [id number] Unit: [id number] AGE: 64 Location: [facility] Re03/24/15 SEX: F Status: REG REF SPEC: [id number] ENE: 03/24/[address]: Sol Thorpe MD REQ: [id number] RECD: 03/24/15 STATUS: COMP _ SOURCE: URINE [facility]: ORDERED: Urine Culture Procedure Result Verified Site Urine Culture Final 03/26/15- 0852 ML Organism 1 ESCHERICHIA COLI [place] Count >100,000 (Many) CFU/ML 1. ESCHERICHIA COLI M.I.C. RX --------- ------ Ampicillin <=2 S Cefazolin <=4 S Cefepime <=1 S Ceftriaxone <=1 S Ciprofloxacin <=0.25 S Gentamicin <=1 S Levofloxacin <=0.12 S Meropenem <=0.25 S Nitrofurantoin <=16 S Tetracycline <=1 S Pipercillin/Tazobactam <=4 S Trimethoprim/Sulfamethoxazole <=20 S Amoxicillin/Clavulanic Acid <=2 S Aztreonam <=1 S Contact the Microbiology Department for any additional antibiotic reporting. * ML - MAIN LAB ([facility]) . END OF REPORT * ML=Testing performed at Main Lab DEPARTMENT OF PATHOLOGY, [address] [place] [address] Errol Carmichael M.D. Director [facility] # [id number] 37 SEE RESULT BELOW Name: ALTA RAMOS : [address]: Sol Thorpe MD Acct: [id number] Unit: [id number] AGE: 64 Location: [facility] Re03/24/15 SEX: F Status: REG REF SPEC: [id number] ENE: 03/24/15-1026 [facility] DR: Sol Thorpe MD REQ: [id number] RECD: 03/24/15-1232 STATUS: SOUT _ ORDERED: IMAGE ANALYSIS, HPV/Thin Prep, HPV 16/18 GENE FINAL DIAGNOSIS Negative for Intraepithelial lesion or Malignancy A. Ectocervical/Endocervical Specimen Adequacy: Satisfactory of evaluation Transformation zone component cannot be definitely identified due to presence of atrophy or other hormonal changes Patient Information: HPV: High risk HPV RNA testing regardless of pap results. HPV 16/18 Genotype for HPV pos Actual Specimen Date: 03/24/15 LMP If Unknown: Last Menstrual Period Not Given. Date of Last Specimen: 11/23/10 ?: N Post Menopausal?: N Date Time Test Result Flag (u) Normal Range 03/24/15 1026 HPV RNA RFLX GE Negative Negative The high-risk HPV types detected by the assay include: 16, 18, 31, 33, 35, 39, 45, 51, 52, 56, 58, 59, 66, and 68. Signed (signature on file) KATHARINA Rhoades ([facility]) 03/25 1334 This Pap test was evaluated with the assistance of the [employer] Test Imaging System. Due to cytologic findings at the alternative financing specialist microscope, comprehensive manual rescreening by a [employer] Boat may be required. The Pap Smear is a screening test designed to aid in the detection of premalignant and malignant conditions of the uterine cervix. It is not a diagnostic procedure and should not be used as the sole means of detecting cervical cancer. Both false- positive and false- negative reports do occur. Depending on your risk status, a Pap smear should be obtained and evaluated every 1-3 years. END OF REPORT * ML=Testing performed at Main Lab DEPARTMENT OF PATHOLOGY, [address] [place] [address] Errol Carmichael M.D. Director [facility] # [id number] 38 The high-risk HPV types detected by the assay include: 16, 18, 31, 33, 35, 39, 45, 51, 52, 56, 58, 59, 66, and 68. 39 Because ethnic data is not always readily available, this report includes an eGFR for both -Americans and non- Americans. The National Kidney Disease Education Program (NKDEP) does not endorse the use of the MDRD equation for patients that are not between the ages of 18 and 70, are , have extremes of body size, muscle mass, or nutritional status, or are non- or non-. According to the National Kidney Foundation, irrespective of diagnosis, the stage of the disease is based on the level of kidney function: Stage Description GFR(mL/min/1.73 m(2)) 1 Kidney damage with normal or decreased GFR 90 2 Kidney damage with mild decrease in GFR 60-89 3 Moderate decrease in GFR 30-59 4 Severe decrease in GFR 15-29 5 Kidney failure <15 (or dialysis) 40 Because ethnic data is not always readily available, this report includes an eGFR for both -Americans and non- Americans. The National Kidney Disease Education Program (NKDEP) does not endorse the use of the MDRD equation for patients that are not between the ages of 18 and 70, are , have extremes of body size, muscle mass, or nutritional status, or are non- or non-. According to the National Kidney Foundation, irrespective of diagnosis, the stage of the disease is based on the level of kidney function: Stage Description GFR(mL/min/1.73 m(2)) 1 Kidney damage with normal or decreased GFR 90 2 Kidney damage with mild decrease in GFR 60-89 3 Moderate decrease in GFR 30-59 4 Severe decrease in GFR 15-29 5 Kidney failure <15 (or dialysis) 41 Because ethnic data is not always readily available, this report includes an eGFR for both -Americans and non- Americans. The National Kidney Disease Education Program (NKDEP) does not endorse the use of the MDRD equation for patients that are not between the ages of 18 and 70, are , have extremes of body size, muscle mass, or nutritional status, or are non- or non-. According to the National Kidney Foundation, irrespective of diagnosis, the stage of the disease is based on the level of kidney function: Stage Description GFR(mL/min/1.73 m(2)) 1 Kidney damage with normal or decreased GFR 90 2 Kidney damage with mild decrease in GFR 60-89 3 Moderate decrease in GFR 30-59 4 Severe decrease in GFR 15-29 5 Kidney failure <15 (or dialysis) 42 Result in log IU/mL is Undetected. The quantification range of this assay is 15 to 100,000,000 IU/mL (1.18 log to 8.00 log IU/mL). Testing was performed by the NASIR AmpliPrep/NASIR TaqMan HCV Test, version 2.0 ([employer] Test Performed by: [place] [address] Medical Equipment Sales: Shayne Cruz III, M.D. 43 This test is negative at 24 hours. All samples are held and reviewed again at 7 days. If delayed precipitation occurs after 7 days, Immunofixation will be performed and an additional report will follow. 44 Test Performed by: [place] [address] Medical Equipment Sales: Shayne Cruz III, M.D. 45 -- REFERENCE VALUE -- 25-HYDROXY D TOTAL (D2+D3) Optimum levels in the healthy population are 20-50, patients with bone disease may benefit from higher levels within this range. Test Performed by: [place] [address] [employer] Equipment Sales: Shayne Cruz III, M.D. 46 Because ethnic data is not always readily available, this report includes an eGFR for both -Americans and non- Americans. The National Kidney Disease Education Program (NKDEP) does not endorse the use of the MDRD equation for patients that are not between the ages of 18 and 70, are , have extremes of body size, muscle mass, or nutritional status, or are non- or non-. According to the National Kidney Foundation, irrespective of diagnosis, the stage of the disease is based on the level of kidney function: Stage Description GFR(mL/min/1.73 m(2)) 1 Kidney damage with normal or decreased GFR 90 2 Kidney damage with mild decrease in GFR 60-89 3 Moderate decrease in GFR 30-59 4 Severe decrease in GFR 15-29 5 Kidney failure <15 (or dialysis) 47 Low risk: <1.00 Average risk: 1.00-3.00 High risk: >3.00 48 High reactive sample are considered positive for Hepatitis C 49 RESULT: No apparent monoclonal protein on serum electrophoresis. Test Performed by: [place] [address] [employer] Equipment Sales: Shayne Cruz III, M.D. 50 Test Performed by: [place] [address] [employer] Equipment Sales: Shayne Cruz III, M.D. 51 -- REFERENCE VALUE -- <20.0 (Negative) Test Performed by: [place] [address] [employer] Equipment Sales: Shayne Crzu III, M.D. 52 HDL Interpretation: Undesirable: High Risk: Less than 40 MG/DL Desirable: Low Risk: Greater than 60 MG/DL 53 LDL Interpretation: Low Risk Optimal Level: LDL Less than 100 MG/DL Near or Above Optimal: LDL 100-129 MG/DL Borderline High Risk: LDL 130-159 MG/DL High Risk: LDL 160-189 MG/DL Very High Risk: LDL Greater than 189 MG/DL 54 Test Performed by: [place] [address] Medical Equipment Sales: Shayne Cruz III, M.D. 55 CHOLESTEROL INTERPRETATION: Desirable: Less than 200 MG/DL Borderline-High Risk: 200-239 MG/DL High-Risk: 240 MG/DL and over 56 HDL INTERPRETATION: Undesirable: High Risk: Less than 40 MG/DL Desirable: Low Risk: Greater than 60 MG/DL 57 LDL INTERPRETATION: Low Risk Optimal Level: LDL Less than 100 MG/DL Near or Above Optimal: LDL 100-129 MG/DL Borderline High Risk: LDL 130-159 MG/DL High Risk: LDL 160-189 MG/DL Very High Risk: LDL Greater than 189 MG/DL 58 Anion gap measurement may be of limited value in the presence of any alkalosis, especially in a combined acid base disorder. . 59 A metabolite of Naproxen, O-desmethylnaproxen, has been shown to interfere with the Jendrassik-Lilian method for measuring total bilirubin. Samples from patients who have taken Naproxen have shown spurious elevation in total bilirubin levels. 60 Because ethnic data is not always readily available, this report includes an eGFR for both -Americans and non- Americans. The National Kidney Disease Education Program (NKDEP) does not endorse the use of the MDRD equation for patients that are not between the ages of 18 and 70, are , have extremes of body size, muscle mass, or nutritional status, or are non- or non-. According to the National Kidney Foundation, irrespective of diagnosis, the stage of the disease is based on the level of kidney function: Stage Description GFR(mL/min/1.73 m(2)) 1 Kidney damage with normal or decreased GFR 90 2 Kidney damage with mild decrease in GFR 60-89 3 Moderate decrease in GFR 30-59 4 Severe decrease in GFR 15-29 5 Kidney failure <15 (or dialysis) 61 ---- RUN DATE: 11/24/10 [facility] NMI LIVE PAGE 1 RUN TIME: 1115 Specimen Inquiry RUN USER: INTERFACE -- [id number]: REG REF Re11/23/10 Age/Sex: 60/F Unit#: [id number] [facility] -- Specimen: [id number] SOUT Spec Date: 11/23/[address]: Sol vaca MD Spec Type: CYTOLOGY Received: 11/24/10 Copies to: SOURCE ECTOCERVICAL/ENDOCERVICAL Thin Prep with Reflex HPV Test PATIENT INFORMATION ACTUAL COLLECTION DATE: 11/23/10 POST MENOPAUSAL? Yes DATE OF PRIOR SPECIMEN: 11/13/09 ADEQUACY OF SPECIMEN Satisfactory for evaluation * Transformation zone component identified * DIAGNOSIS NEGATIVE FOR INTRAEPITHELIAL LESION OR MALIGNANCY * This Pap test was evaluated with the assistance of the ThinPrep Pap Test Imaging System. The Pap Smear is a screening test designed to aid in the detection of premalign ant and malignant conditions of the uterine cervix. It is not a diagnostic procedure a nd should not be used as the sole means of detecting cervical cancer. Both false- positiv e and false-negative reports do occur. Depending on your risk status, a Pap smear nadiya uld be obtained and evaluated every one to three years. Final Interpretation electronically signed by: Carolina TOM(ASCP) 11/24/10 111 5 -- -- DEPARTMENT OF PATHOLOGY, [address] [place] [address] [facility] Permit #[id number] Errol Carmichael M.D. Director Jaun Grewal M.D. Diver Assistant Dir abdias -- 62 [facility] [employer] DEPARTMENT OF PATHOLOGY or Extension [phone] [employer] CYTOLOGY REPORT PATIENT: ALTA RAMOS : 1950 AGE: 59 Y SEX: F ACCT: [id number] PROCEDURE DATE: 11/13/2009 DATE RECEIVED: 11/14/2009 REQUESTING PHYSICIAN: CUCO CRUZ LOCATION: [facility] Case No. [id number] PATIENT DATA: [id number] SPECIMEN SUBMITTED: * * (HPVII) THIN PREP W/HPV (LSIL/ASC/DONOVAN) * * CERVICAL/ENDOCERVICAL RELEVANT HISTORY: Previous smear date: 08/20/2008 SPECIMEN ADEQUACY SATISFACTORY FOR EVALUATION, ENDOCERVICAL TRANSFORMATION ZONE COMPONENT PRESENT GENERAL CATEGORIZATION NEGATIVE FOR INTRAEPITHELIAL LESIONS OR MALIGNANCY ADDITIONAL COPIES SENT TO: Screened/Rescreened by: Electronically Signed by: KATHARINA TORIBIO(ASCP) Signed Date/Time 11/17/2009 17:37 Thin Prep Pap tests are examined with an FDA-approved location-guidance system (86106). Performed @ [facility] [address] [place] [id number] "" 63 CHOL/HDL Risk Ratio Levels MALE FEMALE 1/2 X Average 3.4 3.3 Average 5.0 4.4 2 X Average 9.5 7.0 3 X Average 24.0 11.0 64 Optimal under 100 mg/dl Near or above Optimal 100 - 129 mg/dl Borderline High 130 - 159 mg/dl High 160 - 189 mg/dl Very High above 190 mg/dl 65 LDL/HDL Risk Ratio Levels MALE FEMALE 1/2 X Average 1.0 1.5 Average 3.6 3.2 2 X Average 6.3 5.0 3 X Average 8.0 6.1 66 mL/min/1.73m2 . Normal Function or Mild Renal Disease, if clinically at risk: >or=60 Moderately decreased: 30 - 59 Severely decreased: 15 - 29 Renal Failure: <15 . Please note that the MDRD equation requires an additional adjustment for -Americans (multiply the GFR result by 1.210). . Glomerular Filtration Rate (GFR) is estimated based on the MDRD equation, which assumes a steady state for creatinine (Jackie Int Med 139/2 137-149, 2003), as recommended by the National Kidney Disease Education Program in conjunction with the National Institutes of Health and the National Kidney Foundation. . Clinical conditions in which it may be necessary to measure GFR by using clearance methods include extremes of age and body size, severe malnutrition or obesity, diseases of skeletal muscle, paraplegia or quadriplegia, vegetarian diet, rapidly changing kidney function, and calculation of the dose of potentially toxic drugs that are excreted by the kidneys. 67 ---- RUN DATE: 09/09/08 [facility] NMI LIVE PAGE 1 RUN TIME: 1537 Specimen Inquiry RUN USER: INTERFACE -- Name: ALTA RAMOS Status: REG REF Re09/06/08 Age/Sex: 57/F Unit#: [id number] Location: [facility] : 54 -- Specimen: [id number] SOUT Spec Date: 09/06/08 [facility] Dr: Chuck valadez MD Spec Type: SURGICAL P Received: 09/06/08325 Copies to: Cristy Gann i, CNP SPECIMEN BIOPSY POLYP TRANSVERSE COLON HISTORY CLINICAL INFORMATION: Screening colonoscopy; family history of polyps; as ymptomatic GROSS DESCRIPTION The specimen is received in formalin labelled Alta Ramos, Biopsy Polyp Transverse Colon, and consists of multiple, horton, soft tissue fragments measuring 0.4 x 0.3 x 0.2 cm. in aggregate. Submitted entirely, one cassette. DIAGNOSIS Transverse colon, biopsy: Hyperplastic polyp. Signed Electronically by: JAUN GREWAL 09/09/08 1538 -- -- DEPARTMENT OF PATHOLOGY, [address] [place] [address] [facility] Permit #[id number] Aravind Moya M.D. Diver Assistant Dir abdias -- 68 Cholesterol Risk Levels (NIH) Recommended: under 200 mg/dl Borderline : 200-239 mg/dl High Risk : Above 240 mg/dl 69 The National Cholesterol Education Program recommends the following ranges for LDL Cholesterol: Optimal under 100 mg/dl Near or above Optimal 100 - 129 mg/dl Borderline High 130 - 159 mg/dl High 160 - 189 mg/dl Very High above 190 mg/dl 70 Triglyceride Risk Levels: Normal : <150 mg/dl Borderline : 150-199 mg/dl High : 200-499 mg/dl Very High : >500 mg/dl 71 LDL/HDL Risk Ratio Levels MALE FEMALE 1/2 X Average 1.00 1.47 Average 3.55 3.22 2 X Average 6.25 5.03 3 X Average 7.99 6.14 72 CHOL/HDL Risk Ratio Levels MALE FEMALE 1/2 X Average 3.4 3.3 Average 5.0 4.4 2 X Average 9.5 7.0 3 X Average 24.0 11.0 73 mL/min/1.73m2 . Normal Function or Mild Renal Disease, if clinically at risk: >or=60 Moderately decreased: 30 - 59 Severely decreased: 15 - 29 Renal Failure: <15 . Please note that the MDRD equation requires an additional adjustment for -Americans (multiply the GFR result by 1.210). . Glomerular Filtration Rate (GFR) is estimated based on the MDRD equation, which assumes a steady state for creatinine (Jackie Int Med 139/2 137-149, 2003), as recommended by the National Kidney Disease Education Program in conjunction with the National Institutes of Health and the National Kidney Foundation. . Clinical conditions in which it may be necessary to measure GFR by using clearance methods include extremes of age and body size, severe malnutrition or obesity, diseases of skeletal muscle, paraplegia or quadriplegia, vegetarian diet, rapidly changing kidney function, and calculation of the dose of potentially toxic drugs that are excreted by the kidneys. 74 [employer]. DEPARTMENT OF PATHOLOGY or Extension [phone] [employer] CYTOLOGY REPORT PATIENT: ALTA RAMOS : 1950 AGE: 57 Y SEX: F ACCT: [id number] PROCEDURE DATE: 08/20/2008 DATE RECEIVED: 08/21/2008 REQUESTING PHYSICIAN: CUCO CRUZ LOCATION: [facility] Case No. [id number] PATIENT DATA: [id number] SPECIMEN SUBMITTED: * * (HPVII) THIN PREP W/HPV (LSIL/ASC/DONOVAN) * * CERVICAL RELEVANT HISTORY: Previous smear date: SPECIMEN ADEQUACY SATISFACTORY FOR EVALUATION, ENDOCERVICAL TRANSFORMATION ZONE COMPONENT PRESENT GENERAL CATEGORIZATION NEGATIVE FOR INTRAEPITHELIAL LESIONS OR MALIGNANCY ADDITIONAL COPIES SENT TO: Screened/Rescreened by: Electronically Signed by: KATHARINA SANTOS(ASCP) Signed Date and Time: 08/23/2008 12:53 Thin Prep Pap tests are examined with an FDA-approved location-guidance system (06780). Performed @ [facility] [address] [place] [phone] "" 75 PLEASE NOTE NEW REFERENCE RANGES. 76 Greater than or equal to 211 is normal. . 77 [employer]. DEPARTMENT OF PATHOLOGY or Extension [phone] [employer] CYTOLOGY REPORT PATIENT: ALTA RAMOS : 1950 AGE: 56 Y SEX: F ACCT: [id number] PROCEDURE DATE: 08/02/2007 DATE RECEIVED: 08/03/2007 REQUESTING PHYSICIAN: CUCO CRUZ LOCATION: [facility] Case No. [id number] PATIENT DATA: [id number] NONE PROVIDED SPECIMEN SUBMITTED: * * (HPVII) THIN PREP W/HPV (LSIL/ASC/DONOVAN) * * ENDOCERVICAL RELEVANT HISTORY: SPECIMEN ADEQUACY SATISFACTORY FOR EVALUATION, ENDOCERVICAL TRANSFORMATION ZONE COMPONENT PRESENT GENERAL CATEGORIZATION NEGATIVE FOR INTRAEPITHELIAL LESIONS OR MALIGNANCY ADDITIONAL COPIES SENT TO: Screened/Rescreened by: Electronically Signed by: KATHARINA MURILLO(ASCP) Signed Date 08/10/2007 12:48 Thin Prep Pap tests are examined with an FDA-approved location-guidance system (06098). Performed @ [facility], [address] [place] [phone] Cholesterol Risk Levels (NIH) Recommended: under 200 mg/dl Borderline : 200-239 mg/dl High Risk : Above 240 mg/dl 79 The National Cholesterol Education Program recommends the following ranges for LDL Cholesterol: Optimal under 100 mg/dl Near or above Optimal 100 - 129 mg/dl Borderline High 130 - 159 mg/dl High 160 - 189 mg/dl Very High above 190 mg/dl 80 Triglyceride Risk Levels: Normal : <150 mg/dl Borderline : 150-199 mg/dl High : 200-499 mg/dl Very High : >500 mg/dl 81 LDL/HDL Risk Ratio Levels MALE FEMALE 1/2 X Average 1.00 1.47 Average 3.55 3.22 2 X Average 6.25 5.03 3 X Average 7.99 6.14 82 CHOL/HDL Risk Ratio Levels MALE FEMALE 1/2 X Average 3.4 3.3 Average 5.0 4.4 2 X Average 9.5 7.0 3 X Average 24.0 11.0 83 mL/min/1.73m2 . Normal Function or Mild Renal Disease, if clinically at risk: >or=60 Moderately decreased: 30 - 59 Severely decreased: 15 - 29 Renal Failure: <15 . Please note that the MDRD equation requires an additional adjustment for -Americans (multiply the GFR result by 1.210). . Glomerular Filtration Rate (GFR) is estimated based on the MDRD equation, which assumes a steady state for creatinine (Jackie Int Med 139/2 137-149, 2003), as recommended by the National Kidney Disease Education Program in conjunction with the National Institutes of Health and the National Kidney Foundation. . Clinical conditions in which it may be necessary to measure GFR by using clearance methods include extremes of age and body size, severe malnutrition or obesity, diseases of skeletal muscle, paraplegia or quadriplegia, vegetarian diet, rapidly changing kidney function, and calculation of the dose of potentially toxic drugs that are excreted by the kidneys. 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 unspecified I10 Essential (primary) hypertension Z23 Encounter for immunization Office Visit 03/24/2015 9:30a Main Office Sol Thorpe, V70.0 Examination General M.D., R.D. Medical Routine AT Health Care Facility V72.31 Routine Quotation Checker Examination 401.9 Hypertension Unspec Office Visit 12/30/2014 11:45a Main Office Sol Thorpe, 465.9 URI Upper M.DKaden, R.D. Respiratory Infections Acute Unspec Sites 786.05 Shortness Of Breath 780.79 Malaise And Fatigue Other Office Visit 10/28/2014 4:15p Main Office Sol Thorpe, 401.1 Hypertension Benign M.D., R.D. V03.82 Streptococcus Pneumoniae Vaccination Spec Other Office Visit 08/26/2014 1:00p Main Office Sol Thorpe, 401.1 Hypertension Benign M.D., R.D. 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 Pulmonary Nodule 714.0 Rheumatoid Arthritis Office Visit 04/29/2014 9:15a Main Office Sol Thorpe, 715.09 Osteoarthrosis M.D., R.D. Generalized Multiple Sites 110.4 Dermatophytosis Foot 244.9 Hypothyroidism Other Unspec Office Visit 12/04/2012 4:15p Main Office Sol Thorpe, 244.8 Hypothyroidism Other M.D., R.D. Spec 272.2 Hyperlipidemia Mixed 719.46 Pain Joint Lower Leg 311 Depressive Disorder Not Elsewhere Spec 719.47 Pain Joint Ankle & Foot Office Visit 11/23/2010 1:30p Main Office Sol Thorpe, V70.0 Examination General M.D., R.D. Medical Routine AT Health Care Facility V72.31 Routine Quotation Checker Examination 244.8 Hypothyroidism Other Spec 305.1 Tobacco Use Disorder 311 Depressive Disorder Not Elsewhere Spec 272.2 Hyperlipidemia Mixed V76.51 Special Screening For Malignant Neoplasms Colon 443.0 Raynauds Syndrome 719.46 Pain Joint Lower Leg Office Visit 11/13/2009 9:45a Main Office Cristy Hart V72.31 Routine Quotation Checker Nidhi, Examination [facility] V70.0 Examination General Medical Routine AT Health Care Facility V70.0 Examination General Medical Routine AT Health Care Facility V76.2 Screening Malignant Neoplasm Cervix V76.2 Screening Malignant Neoplasm Cervix 305.1 Tobacco Use Disorder 305.1 Tobacco Use Disorder 311 Depressive Disorder Not Elsewhere Spec 311 Depressive Disorder Not Elsewhere Spec 719.46 Pain Joint Lower Leg 719.46 Pain Joint Lower Leg 244.8 Hypothyroidism Other Spec 272.2 Hyperlipidemia Mixed Office Visit 08/20/2008 8:45a Main Office Cristy Hart V72.31 Routine Quotation Checker Nidhi, Examination [facility] V70.0 Examination General Medical Routine AT Health Care Facility 244.8 Hypothyroidism Other Spec 305.1 Tobacco Use Disorder 443.0 Raynauds Syndrome 627.8 Menopausal & Postmenopausal Disorder Spec Other 311 Depressive Disorder Not Elsewhere Spec 719.46 Pain Joint Lower Leg 272.2 Hyperlipidemia Mixed V76.2 Screening Malignant Neoplasm Cervix Office Visit 08/02/2007 11:45a Main Office Cristy Hart V70.0 Examination General Nidhi, F.N.P.C. Medical Routine AT Health Care Facility 244.8 Hypothyroidism Other Spec 311 Depressive Disorder Not Elsewhere Spec 305.1 Tobacco Use Disorder 443.0 Raynauds Syndrome 627.8 Menopausal & Postmenopausal Disorder Spec Other 272.2 Hyperlipidemia Mixed Office Visit 06/14/2007 2:45p Main Office Cristy AKaden 244.8 Hypothyroidism Other Nihdi, Spec [facility] 311 Depressive Disorder Not Elsewhere Spec 305.1 Tobacco Use Disorder Office Visit 11/24/2004 10:15a Main Office Cristy Terrell, F.N.P.C. 782.3 Edema 786.59 Pain Chest Other Office Visit 11/19/2004 12:15p Main Office Cassie Navarro, 466.0 Bronchitis Acute M.D. 786.59 Pain Chest Other Office Visit 06/18/2003 3:15p Main Office Niecy Ridley M.D. 959.5 Injury Finger Other & Unspec Plan of Treatment 02/26/2019 - Sol Thorpe M.D., R.D.R06.00 Dyspnea, zwjuglrlcegX01.9 Anemia, didngxgoonhA66.13 Epigastric painNew Medication:Omeprazole 20 mg - 1 by mouth every dayM54.2 Cervicalgia
--- OUTSIDE RECORDS SUMMARY | 2019-02-28 13:11 | XMS REPORT | Continuity of Care Document ---
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 Payers Date Identification Numbers Payment Provider Subscriber Effective: 2017 Policy Number: [id number] Medicare - [facility] Alta Ramos PayID: [id number] [address] [place] [address] Policy Number: [id number] [facility] Oneal Severino August Group Name: [place] [address] PayID: [id number] [place] [address] Advance Directives Description No Information Available Problems Active Problems Provider Date Hypothyroidism Sol Thorpe M.D., RTrina Onset: 01/17/2013 Depressive disorder Sol Thorpe M.D., R.DKaden Onset: 01/17/2013 Mixed hyperlipidemia Sol Thorpe M.D., RKadenDKaden Onset: 01/17/2013 Tobacco user Sol Thorpe M.D., R.DKaden Onset: 01/17/2013 Raynaud's disease Sol Thorpe M.D., R.D. 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 Tablets Day Nicotrol use 6-12 100units Niecy Reynolds, 08/02/2014 10mg Inhaler cartridges /day [employer] inhaled X 6-12 weeks Bupropion HCL ER (XL) Take One Tablet 30tabs F32.9 Sol Thorpe, 2012 By Mouth Every M.Otoniel, R.DKaden 150mg Tablets ER 24HR Day Multivitamin & Sol Thorpe, 11/23/2010 Mineral Aravind, R.D. Pill Aspir-81 Cristy A. 08/02/[address] Aleksandar TerrellN.PKadenCKaden Celexa Take 1/2 Tablet 30tabs F32.9 Sol Thorpe, 06/14/2007 20mg Tablets By Mouth Once M.Otoniel, R.D. Daily History Medications SMZ-TMP DS 1 po bid for 5 10tabs Sol Thorpe, 03/26/2015 - 800-160mg days Severino.Otoniel, R.D. 03/26/2015 Tablets Nitrofurantoin 1 po bid 10caps Sol Thorpe, 03/26/2015 - Macrocrystal Aravind, R.DKaden 09/20/2018 100mg Capsules Ciprofloxacin HCL 1 by mouth twice a 10tabs Sol Thorpe, 03/25/2015 - 250mg day Aravind, R.DKaden 03/26/2015 Tablets Prednisone take 2 tablets 10tabs Sol Thorpe, 12/30/2014 - 20mg Tablets daily for 5 days Aravind, R.DKaden 03/24/2015 Zostavax pls administesr QS Sol Thorpe, 08/26/2014 - vaccine Aravind, R.D. 03/24/2015 21533Kgn/0.65ML Solution Rec Econazole Nitrate apply to rash area 30g 110.4 Sol Thorpe, 04/29/2014 - 1% twice a day as M.Otoniel, R.D. 03/24/2015 Cream needed Levothyroxine Sodium Take One Tablet By 90tabs E03.8 Sol Thorpe, 11/13 - Mouth Every Day Aravind, R.D. 10/02/2018 112mcg Tablets Chantix Use as Directed QS 305.1 Sol Thorpe, 08/20/2008 - Starter Pack Aravind, R.D. 12/04/2012 Misc Synthroid 1 PO qd 90tabs 244.8 Durga Ivy M.D. 12/23/2007 - 100mcg 11/13/2009 Tablets Synthroid one po qd 30tabs 244.8 Cristy Hart 06/14/2007 - 125mcg Nidhi, 07/24/2008 Tablets [facility] Zithromax Z-Joselito two by mouth every 6tabs Sol Thorpe, 11/19/2004 - 250mg day today and then Aravind RKadenDKaden 03/24/2015 Tablets one by mouth every day for 4 days Azmacort Mdi 4 Puffs bid as 20Grams Cassie Payne 11/19/2004 - Inhaler Directed For 2-4 BlegenAravind 08/02/2007 Weeks, Rinse Mouth After Vitamins A & D 1 po Qd Unknown - 09/20/2018 5000-400Unit Capsules Immunizations CPT Code Status Date Vaccine Lot # [id number] Given 09/20/2018 Prevnar-13 Pneumococcal Conjugate Vaccine [id number] Given 10/28/2014 Pneumovax 23 (PPSV23) 65+ years or high risk 2 to [id number] 66 year old 01552 Given 09/03/2014 Zoster Vaccine 27283 Given 08/08/2007 Tdap (Adacel) [id number] Ordered 07/17/2010 Influenza Vaccine-Preservative Free 3 Yrs And Above Vital Signs Date Vital Result Comment 02/02/2019 2:54pm Weight 116.00 lb Weight 52.618 [...] Date Facility Test Result H/L Range Note Laboratory test [facility] TSH (Thyroid 0.93 N 0.34-5.60 finding [phone] Stimulating mcIU/mL Horm) Free T4 1.13 ng/dL High 0.61-1.12 Total T3 63 ng/dL Low 87-178 Laboratory test 11/17/2018 [facility] Surgical SEE RESULT 1 finding [phone] Interface Order BELOW Laboratory test 09/29/2018 [facility] TSH (Thyroid 0.10 Low 0.34- finding [phone] Stimulating mcIU/mL 5.60 Horm) CBC Auto Diff 09/29/2018 [facility] White Blood 4.6 10^3/uL N 3.5-1 [phone] Count 0.8 Red Blood Count 4.19 10^6/uL [...] Cells % 0 Comp Metabolic Panel 09/29/2018 [facility] Sodium 136 mmol/L N 135-145 [phone] Potassium 4.2 mmol/L N 3.5-5.0 Chloride 96 [...] Egfr Non- 89.6 >60 Egfr 108.4 >60 2 Lipid Profile 09/29/2018 [facility] Triglycerides 68 mg/dL 3 (Trig/Chol/HDL) [phone] Cholesterol 151 mg/dL 4 HDL Cholesterol 85.8 mg/dL 5 LDL Cholesterol 52 mg/dL 6 Laboratory test 08/21/2018 [facility] Erythrocyte Sed 19 mm/Hr N 0-40 finding [phone] Rate Hepatitis B Surface Ag Nonreactive Nonreactive Hepatitis B Core AB Igm Nonreactive Nonreactive Hepatitis A AB Igm Nonreactive Nonreactive Hepatitis C Antibody High Reactive Abnormal Nonreactive 7 Creatine Kinase(CK) 73 U/L N 10-223 C Reactive Protein 1.11 mg/L N <8.01 Rheumatoid Factor 137 IU/mL High <15 Hepatitis C Rna Quant Undetected IU/mL Undetected 8 Connective Tissue 08/21/2018 [facility] Anti-Nuclear 0.4 U 9 Panel [phone] Antibody Cyclic Citrullinated Peptide <15.6 U 10 Interpretation See Comment 11 Laboratory test 08/21/2018 [facility] Vitamin D, 1,25 TNP () 12 finding [phone] Dihydroxy Laboratory test 08/21/2018 [facility] Vitamin D TNP () 13 finding [phone] 1,25-Dihydroxy 1,25 Dihydroxy 08/21/2018 [facility] Vitamin D 1,25 18 pg/mL 18-72 Vitamin D [phone] (Oh) 2, Total Vitamin D3 1,25 (Oh) 2 18 pg/mL Vitamin D2 1,25 (Oh) 2 <8 pg/mL 14 Connective Tissue 08/21/2018 [facility] Anti-Nuclear 0.4 U 15 Panel [phone] Antibody Cyclic Citrullinated Peptide <15.6 U 16 Interpretation See Comment 17 Connective Tissue 08/21/2018 [facility] Anti-Nuclear 0.4 U 18 Panel [phone] Antibody Cyclic Citrullinated Peptide <15.6 U 19 Interpretation See Comment 20 Connective Tissue 08/21/2018 [facility] Anti-Nuclear 0.4 U 21 Panel [phone] Antibody Cyclic Citrullinated Peptide <15.6 U 22 Interpretation See Comment 23 Connective Tissue 08/21/2018 [facility] Anti-Nuclear 0.4 U 24 Panel [phone] Antibody Cyclic Citrullinated Peptide <15.6 U 25 Interpretation See Comment 26 Connective Tissue 08/21/2018 [facility] Anti-Nuclear 0.4 U 27 Panel [phone] Antibody Cyclic Citrullinated Peptide <15.6 U 28 Interpretation See Comment 29 Connective Tissue 08/21/2018 [facility] Anti-Nuclear 0.4 U 30 Panel [phone] Antibody Cyclic Citrullinated Peptide <15.6 U 31 Interpretation See Comment 32 Laboratory test 03/24/2015 [facility] Urine Culture And SEE RESULT 33 finding [phone] Sensitivities BELOW Laboratory test 03/24/2015 [facility] Cytology Interface SEE RESULT 34 finding [phone] Order BELOW HPV Rna w/Reflex Genotype Negative N Negative 35 Urine DIP 03/24/2015 [facility] Specific [place] 1.005 Low 1.01-1.02 (607)- - Urine pH 7 High 5-6 Leukocytes + Neg Urine Nitrites NEG Neg Total Protein, Urine NEG Neg Urine Glucose NORM Norm Urine Ketones NEG Neg Urobilinogen NORM Norm Urine Bilirubin + Neg Urine Blood TRACE Neg Basic Metabolic 02/07/2015 [facility] Sodium 138 mmol /L N 133-145 Panel [phone] Potassium 4.5 mmol/L N 3.5-5.0 Chloride 105 mmol/L N 101-111 Co2 Carbon Dioxide 26 mmol/L N 22-32 Anion Gap 7 mmol/L N 2-11 Glucose 100 mg/dL N 70-100 Blood Urea Nitrogen 22 mg/dL N 6-24 Creatinine 0.80 mg/dL N 0.51-0.95 BUN/Creatinine Ratio 27.5 High 8-20 Calcium 10.2 mg/dL N 8.6-10.3 Egfr Non- 72.7 N >60 Egfr 93.5 N >60 36 Laboratory test 12/30/2014 [facility] Creatine Kinase 81 U/L N 10-223 finding [phone] Comp Metabolic 12/30/2014 [facility] Sodium 133 N 133-145 Panel [phone] mmol/L Potassium 4.1 mmol/L N 3.5-5.0 Chloride 98 [...] 71.6 N >60 Egfr 92.1 N >60 37 Laboratory test 12/30/2014 [facility] TSH (Thyroid 0.42 IU/mL N 0.34-5.60 finding [phone] Stimulating Horm) CBC Auto Diff 12/30/2014 [facility] White Blood 10.3 N 4.8-10.8 [phone] Count 10^3/uL Red Blood Count 4.48 10^6/uL N 4.0-5.4 [...] Nucleated Red Blood Cells % 0.3 N CBC Auto Diff 07/31/2014 [facility] White Blood 6.8 10^3/uL N 4.8-10.8 [phone] Count Red Blood Count 4.01 10^6/uL N [...] Nucleated Red Blood Cells % 0 N Basic Metabolic 07/31/2014 [facility] Sodium 137 mmol /L N 133-145 Panel [phone] Potassium 4.2 mmol/L N 3.7-5.6 Chloride 105 mmol/L N 101-111 Co2 Carbon Dioxide 25 mmol/L N 22-32 Anion Gap 7 mmol/L N 2-11 Glucose 94 mg/dL N 70-100 Blood Urea Nitrogen 13 mg/dL N 6-24 Creatinine 0.71 mg/dL N 0.51-0.95 BUN/Creatinine Ratio 18.3 N 8-20 Calcium 9.9 mg/dL N 8.6-10.3 Egfr Non- 83.7 N >60 Egfr 107.6 N >60 38 Type & Screen 07/31/2014 [facility] Patient Blood O Positive N [phone] Type Antibody Screen NEGATIVE N Laboratory test 07/01/2014 [facility] Inr 0.84 Low 0.85-1.06 finding [phone] Activated Partial Thrombo Time 20.1 seconds Low 24.0-36.1 Laboratory 06/10/2014 [facility] Hepatitis C Rna Undetected N Undetected 39 test finding [phone] Quantitative IU/mL Laboratory 06/07/2014 [facility] Erythrocyte Sed 11 mm/Hr N 0-30 test finding [phone] Rate Hepatitis B Surface Antigen Nonreactive N Nonreactive Hepatitis C Antibody High Reactive Abnormal Nonreactive 40 CBC Auto Diff 06/07/2014 [facility] White Blood 8.5 10^3/uL N 4.8-10.8 [phone] Count Red Blood Count 3.83 10^6/uL Low 4.0-5.4 [...] Cells % 0.1 N Laboratory test 06/07/2014 [facility] CRP High 1.73 mg/L N 41 finding [phone] Sensitivity Comp Metabolic 06/07/2014 [facility] Sodium 136 mmol/ L N 133-14 Panel [phone] Potassium 3.5 mmol/L Low 3.7-5.6 Chloride 104 [...] 76.2 N >60 Egfr 98.0 N >60 42 Protein 06/07/2014 [facility] Total 7.1 g/dL N 6.3 - Electrophoresis [phone] Protein(Pep) 7.9 Albumin 3.4 g/dL N 3.4-4.7 Alpha-1 Globulin 0.3 g/dL N 0.1-0.3 Alpha-2 Globulin 1.1 g/dL Abnormal 0.6-1.0 Beta Globulin 1.1 g/dL N 0.7-1.2 Gamma Globulin 1.2 g/dL N 0.6-1.6 Albumin/Globulin Ratio 0.91 N Impression See Comment N 43 Cryoglobulin & 06/07/2014 [facility] Cryoglobulin Negative N Negative 44 Cryofibrinogen [phone] Cryofibrinogen Negative N Negative 45 Vitamin D, 25 06/07/2014 [facility] 25-Hydroxy Vitamin <4.0 ng/mL N Hydroxy [phone] D2 25-Hydroxy Vitamin D3 42 ng/mL N 25-Hydroxy Vitamin D Total 42 ng/mL N 46 Laboratory test 04/29/2014 [facility] Anitha (Anti- Nuclear Negative N Negative finding [phone] AB) Screen Erythrocyte Sed Rate 11 mm/Hr N 0-30 Rheumatoid Factor 131 IU/mL Abnormal <15 47 Cyclic Citrullinated Pept IgG <15.6 U N 48 TSH (Thyroid Stimulating Horm) 0.34 IU/mL N 0.34-5.60 Total T3 0.99 ng/mL N 0.87-1.78 Free T4 1.09 ng/mL N 0.61-1.12 Laboratory test 12/05/2012 [facility] Rheumatoid 318 IU/mL Abnormal <15 49 finding [phone] Factor Erythrocyte Sed Rate 8 mm/Hr 0-30 Anitha (Anti-Nuclear AB) Screen Negative Negative Lipid Profile 12/05/2012 [facility] Triglycerides 179 mg/dL 40-200 (Trig/Chol/HDL) [phone] Cholesterol 220 mg/dL High Less than 200 HDL Cholesterol 54 mg/dL 40-60 50 Cholesterol/HDL Ratio 4.1 Average 1-4.44 LDL Cholesterol 130.2 mg/dL High Less Than 100 51 Laboratory test 12/05/2012 [facility] TSH (Thyroid 0.34 0.34-5.60 finding [phone] Stimulating miu/mL Horm) Lipid Profile 11/23/2010 [facility] Triglyceride 88 mg/dL 40-200 (Trig/Chol/HDL) [phone] Cholesterol 228 mg/dL High Less Than 200 52 High Density Lipoprotein 66 mg/dL High 40-60 53 Cholesterol/HDL Ratio 3.45 AVERAGE 1-4.44 Low Density Lipoprotein 144 mg/dL High Less Than 100 54 Laboratory test 11/23/2010 [facility] TSH 0.57 MIU/ ML 0.34-5.60 finding [phone] Comp Metabolic 11/23/2010 [facility] Sodium 137 mmol/ L 135-145 Panel [phone] Potassium 4.2 mmol/L 3.5-5.0 Chloride 104 mmol/L 101-111 Co2 (Carbon Dioxide) 24.0 mmol/L 22-32 Anion Gap 9.0 mmol/L 2-11 55 Glucose 93 mg/dL 70-100 BUN 12 mg/dL 6-24 Creatinine 0.70 mg/dL 0.50-1.40 One Over Creatinine 1.40 BUN/Creatinine Ratio 17.1 8-20 Calcium 9.9 mg/dL 8.1-9.9 Total Protein 7.8 GM/DL 6.2-8.1 Albumin 4.5 GM/DL 3.6-5.4 Globulin 3.3 GM/DL 2-4 Albumin/Globulin Ratio 1.4 1-3 Bilirubin Total 0.6 mg/dL 0.4-1.5 56 Alkaline Phosphatase 79 U/L 30-110 Alt (SGPT) 27 U/L 14-54 Ast (Sgot) 23 U/L 12-42 eGFR Non- 85.9 > 60 eGFR 110.5 > 60 57 Urine DIP 11/23/2010 [facility] Leukocytes TRACE Neg (607)- - Urine Nitrites NEG Neg Urine pH 5 5-6 Total Protein, Urine NEG Neg Urine Glucose NORM Norm Urine Ketones NEG Neg Urobilinogen NORM Norm Urine Bilirubin NEG Neg Urine Blood NEG Neg Specific [place] NA Low 1.01-1.02 Laboratory test 11/23/2010 [facility] Cytology ------ 58 finding [phone] <SEE NOTE> Laboratory test 12/25/2009 [facility] TSH 0.410 uIU/ml 0.35 finding [phone] (Thyrotropin 0-5. ) 500 T-4 Free 1.2 ng/dL 0.8-1.8 Laboratory test 11/13/2009 [facility] Thin Prep SEE NOTE 59 finding [phone] W/HPV(Lsil/DONOVAN/Asc) Urine DIP 11/13/2009 [facility] Leukocytes NEG Neg (607)- - Urine Nitrites NEG Neg Urine pH 5 5-6 Total Protein, Urine NEG Neg Urine Glucose NORM Norm Urine Ketones NEG Neg Urobilinogen NORM Norm Urine Bilirubin NEG Neg Urine Blood NEG Neg Specific [place] N/A Low 1.01-1.02 Lipid Panel 11/10/2009 [facility] Cholesterol, Total 183 mg /dL <200 [phone] Triglycerides 154 mg/dL Abnormal <150 HDL Cholesterol 44 mg/dL 40-60 Chol/HDL Cholesterol 4.2 60 LDL Cholesterol, Calc. 108 mg/dL Abnormal 61 LDL/HDL Cholesterol 2.5 62 Comprehensive 11/10/2009 [facility] Glucose 104 mg/dL High 70-100 Metabolic [phone] BUN 14 mg/dL 4-18 Creatinine, Serum 0.62 mg/dL 0.50-1.10 Sodium 140 mmol/L 136-146 Potassium 4.3 mmol/L 3.5-5.3 Chloride 109 mmol/L 98-110 Carbon Dioxide 26 mmol/L 20-32 Albumin 4.2 g/dL 3.5-4.7 Protein, Total 7.1 g/dL 6.4-8.3 Calcium 9.4 mg/dL 8.4-10.4 Alkaline Phosphatase 87 U/L 10-118 Sgot (Ast) 21 U/L 3-40 SGPT (Alt) 24 U/L 7-50 Bilirubin, Total 0.20 mg/dL Low 0.30-1.20 Laboratory 11/10/2009 [facility] TSH 3.000 0.350-5.500 test finding [phone] (Thyrotropin) uIU/ml GFR Calculated 11/10/2009 [facility] GFR (Calculated) >60 63 [phone] Laboratory 02/18/2009 [facility] TSH 1.460 0.350-5.500 test finding [phone] (Thyrotropin) uIU/ml T-4 Free 1.0 ng/dL 0.8-1.8 Surgical 09/06/2008 [facility] Surgical --- 64 Pathology [phone] Pathology <SEE NOTE> Lipid Profile 08/20/2008 [facility] Cholesterol, 224 mg/dL High 120 65 [phone] Total -20 0 HDL Cholesterol 58 mg/dL 40-60 LDL Cholesterol, Calc. 137 mg/dL AB 66 Triglycerides 145 mg/dL 67 LDL/HDL Cholesterol 2.4 68 Chol/HDL Cholesterol 3.9 69 Comprehensive Metabolic 08/20/2008 [facility] Glucose 90 mg /dL 70-100 [phone] BUN 18 mg/dL 4-18 Creatinine, Serum 0.9 mg/dL 0.5-1.2 Sodium 140 mmol/L 136-146 Potassium 4.2 mmol/L 3.5-5.3 Chloride 110 mmol/L 98-110 Carbon Dioxide 22 mmol/L 20-32 Albumin 4.8 g/dL High 3.5-4.7 Protein, Total 7.4 g/dL 6.4-8.3 Calcium 10.1 mg/dL 8.4-10.4 Alkaline Phosphatase 85 U/L 10-118 Sgot (Ast) 24 U/L 3-40 SGPT (Alt) 23 U/L 7-50 Bilirubin, Total 0.40 mg/dL 0.30-1.20 Laboratory test 08/20/2008 [facility] GFR (Calculated) >60 70 finding [phone] Urine DIP 08/20/2008 [facility] Leukocytes NEG Neg (607)- - Urine Nitrites NEG Neg Urine pH 5 5-6 Total Protein, Urine NEG Neg Urine Glucose NORM Norm Urine Ketones NEG Neg Urobilinogen NORM Norm Urine Bilirubin NEG Neg Urine Blood NEG Neg Specific [place] NA Low 1.01-1.02 Laboratory test 08/20/2008 [facility] Thin Prep SEE NOTE 71 finding [phone] W/HPV(Lsil/DONOVAN/Asc) Laboratory test 07/03/2008 [facility] Thyroxine Free 0.74 0.61 72 finding [phone] NG/ML -1.2 4 TSH 0.90 MIU/ML 0.34-5.60 Laboratory 12/22/2007 [facility] TSH 0.320 Low 0.350- 5.500 test finding [phone] (Thyrotropin) uIU/ml T-4 Free 1.1 ng/dL 0.8-1.8 Laboratory test 08/08/2007 [facility] Vitamin B-12 801 pg/ mL 73 finding [phone] Laboratory test 08/02/2007 [facility] Thin Prep SEE NOTE 74 finding [phone] W/HPV(Lsil/DONOVAN/A sc) Urine DIP 08/02/2007 [facility] Leukocytes NEG Neg (607)- - Urine Nitrites NEG Neg Urine pH 5 5-6 Total Protein, Urine NEG Neg Urine Glucose NORM Norm Urine Ketones NEG Neg Urobilinogen NORM Norm Urine Bilirubin NEG Neg Urine Blood NEG Neg Specific [place] NORM Low 1.01-1.02 Laboratory 07/26/2007 [facility] TSH 0.410 0.350-5.500 test finding [phone] (Thyrotropin) uIU/ml Lipid Profile 07/26/2007 [facility] Cholesterol, 210 High 120-200 75 [phone] Total mg/dL HDL Cholesterol 47 mg/dL 40-60 LDL Cholesterol, Calc. 139 mg/dL AB 76 Triglycerides 120 mg/dL 77 LDL/HDL Cholesterol 3.0 78 Chol/HDL Cholesterol 4.5 79 Comprehensive 07/26/2007 [facility] Glucose 115 mg/dL High 70-100 Metabolic [phone] BUN 17 mg/dL 4-18 Creatinine, Serum 1.0 mg/dL 0.5-1.2 Sodium 141 mmol/L 136-146 Potassium 4.6 mmol/L 3.5-5.3 Chloride 110 mmol/L 98-110 Carbon Dioxide 23 mmol/L 20-32 Albumin 4.5 g/dL 3.5-4.7 Protein, Total 7.1 g/dL 6.4-8.2 Calcium 9.9 mg/dL 8.4-10.4 Alkaline Phosphatase 94 U/L 10-118 Sgot (Ast) 21 U/L 3-40 SGPT (Alt) 22 U/L 7-50 Bilirubin, Total 0.30 mg/dL 0.30-1.20 Laboratory test 07/26/2007 [facility] GFR (Calculated) >60 80 finding [phone] Laboratory test 11/19/2004 [facility] Oximetry - Single 96% finding (607)- - Study 1 SEE RESULT BELOW Name: ALTA RAMOS : [address]: Chuck Sanderson MD Acct: [id number] Unit: [id number] AGE: 68 Location: ENDO Re11/17/18 SEX: F Status: DEP REF SPEC: [id number] ENE: 11/17/18-[address]: Chuck Sanderson MD REQ: [id number] RECD: 11/17/18496 STATUS: JUJU NELSON DR: Sol Thorpe MD [...] 1301 END OF REPORT DEPARTMENT OF PATHOLOGY, [address] [place] [address] Errol Carmichael M.D. Director [facility] # [id number] 2 Because ethnic data is not always readily [...] 15-29 5 Kidney failure <15 (or dialysis) 3 Desirable: <150 Borderline High: 150-199 High: 200-499 Very High: >500 4 Desirable: <200 Borderline High: 200-239 High: >239 5 Low: <40 Desirable: 40-60 High: >60 6 Desirable: <100 Near Optimal: 100-129 Borderline High: 130-159 High: 160-189 Very High: >189 7 High reactive sample are considered positive for Hepatitis C 8 Result in log IU/mL is Undetected. ADDITIONAL INFORMATION The quantification range of this assay is 15 to 100,000,000 IU/mL (1.18 log to 8.00 log IU/mL). Testing was performed using the nasir HCV test ([employer] with the nasir [employer] System. Test Performed by: [facility] - [address] [address] 9 REFERENCE VALUE <=1.0 (Negative) 10 REFERENCE VALUE <20.0 (Negative) 11 Tests for antibodies to dsDNA and HERBERTH antigens are not performed automatically unless the ANITHA result is > or= 3.0 U. Studies performed at [facility] indicate that positive ANITHA results <3.0 U are rarely accompanied by positive second order tests. Test Performed by: [facility] - [address] [address] 12 1,25-Dihydroxyvitamin D, S was cancelled on 08/24/2018 at 10:03; Assay temporarily down. Specimen forwarded to [facility] Test Performed by: [address] [address] 13 1,25-Dihydroxyvitamin D, S was cancelled on 08/24/2018 at 10:03; Assay temporarily down. Specimen forwarded to [facility] Test Performed by: [facility] - [facility] [address] [place] [address] 14 Vitamin D3, 1,25(OH) indicates both endogenous production and supplementation. Vitamin D2, 1,25(OH)2 is an indicator of exogenous sources, such as diet or supplementation. Interpretation and therapy are based on measurement of Vitamin D, 1,25 (OH)2, Total. This test was developed and its analytical performance characteristics have been determined by [employer] [facility]. It has not been cleared or approved by the US Food and Drug Administration. This assay has been validated pursuant to the CLIA regulations and is used for clinical purposes. Test Performed at: [facility], [address] [place] [address] Sim Guerra MD, PhD Test Performed by: [facility] [address] [place] [address] 15 REFERENCE VALUE <=1.0 (Negative) 16 REFERENCE VALUE <20.0 (Negative) 17 Tests for antibodies to dsDNA and HERBERTH antigens are not performed automatically unless the ANITHA result is > or= 3.0 U. Studies performed at [facility] indicate that positive ANITHA results <3.0 U are rarely accompanied by positive second order tests. Test Performed by: [facility] [address] [place] [address] 18 REFERENCE VALUE <=1.0 (Negative) 19 REFERENCE VALUE <20.0 (Negative) 20 Tests for antibodies to dsDNA and HERBERTH antigens are not performed automatically unless the ANITHA result is > or= 3.0 U. Studies performed at [facility] indicate that positive ANITHA results <3.0 U are rarely accompanied by positive second order tests. Test Performed by: [facility] [address] [place] [address] 21 REFERENCE VALUE <=1.0 (Negative) 22 REFERENCE VALUE <20.0 (Negative) 23 Tests for antibodies to dsDNA and HERBERTH antigens are not performed automatically unless the ANITHA result is > or= 3.0 U. Studies performed at [facility] indicate that positive ANITHA results <3.0 U are rarely accompanied by positive second order tests. Test Performed by: [facility] [address] [place] [address] 24 REFERENCE VALUE <=1.0 (Negative) 25 REFERENCE VALUE <20.0 (Negative) 26 Tests for antibodies to dsDNA and HERBERTH antigens are not performed automatically unless the ANITHA result is > or= 3.0 U. Studies performed at [facility] indicate that positive ANITHA results <3.0 U are rarely accompanied by positive second order tests. Test Performed by: [facility] - [address] [address] 27 REFERENCE VALUE <=1.0 (Negative) 28 REFERENCE VALUE <20.0 (Negative) 29 Tests for antibodies to dsDNA and HERBERTH antigens are not performed automatically unless the ANITHA result is > or= 3.0 U. Studies performed at [facility] indicate that positive ANITHA results <3.0 U are rarely accompanied by positive second order tests. Test Performed by: [facility] - [facility] [address] [place] [address] 30 REFERENCE VALUE <=1.0 (Negative) 31 REFERENCE VALUE <20.0 (Negative) 32 Tests for antibodies to dsDNA and HERBERTH antigens are not performed automatically unless the ANITHA result is > or= 3.0 U. Studies performed at [facility] indicate that positive ANITHA results <3.0 U are rarely accompanied by positive second order tests. Test Performed by: [facility] - [facility] [address] [place] [address] 33 SEE RESULT BELOW Name: ALTA RAMOS : [address]: Sol Thorpe MD Acct: [id number] Unit: [id number] AGE: 64 Location: [facility] Re03/24/15 SEX: F Status: REG REF SPEC: [id number] ENE: 03/24/[address]: Sol Thorpe MD REQ: [id number] RECD: 03/24/15 STATUS: COMP _ SOURCE: URINE SPDESC: ORDERED: Urine Culture Procedure Result Verified Site Urine Culture Final 03/26/15- 0852 ML Organism 1 ESCHERICHIA COLI Stewart Count >100,000 (Many) CFU/ML 1. ESCHERICHIA COLI [...] antibiotic reporting. * ML - MAIN LAB ([facility]) . END OF REPORT * ML=Testing performed at Main Lab DEPARTMENT OF PATHOLOGY, [address] [place] [address] Errol Carmichael M.D. Director [facility] # [id number] 34 SEE RESULT BELOW Name: ALTA RAMOS : [address]: Sol Thorpe MD Acct: [id number] Unit: [id number] AGE: 64 Location: [facility] Re03/24/15 SEX: F Status: REG REF SPEC: [id number] ENE: 03/24/15-[address]: Sol Thorpe MD REQ: [id number] RECD: 03/24/151372 STATUS: SOUT _ ORDERED: IMAGE ANALYSIS, HPV/Thin [...] 68. Signed (signature on file) KATHARINA Rhoades (ASCP) 03/25 1334 This Pap test was evaluated with the assistance of the [employer] Test Imaging System. Due to cytologic findings at the physician interventional cardiologist microscope, comprehensive manual rescreening by a Integrity Analyst may be required. The Pap Smear is [...] performed at Main Lab DEPARTMENT OF PATHOLOGY, [address] [place] [address] Errol Carmichael M.D. Director [facility] # [id number] 35 The high-risk HPV types detected by the assay include: 16, 18, 31, 33, 35, 39, 45, 51, 52, 56, 58, 59, 66, and 68. 36 Because ethnic data is not always readily [...] 15-29 5 Kidney failure <15 (or dialysis) 37 Because ethnic data is not always readily [...] 15-29 5 Kidney failure <15 (or dialysis) 38 Because ethnic data is not always readily [...] 15-29 5 Kidney failure <15 (or dialysis) 39 Result in log IU/mL is Undetected. The quantification range of this assay is 15 to 100,000,000 IU/mL (1.18 log to 8.00 log IU/mL). Testing was performed by the NASIR AmpliPrep/NASIR TaqMan HCV Test, version 2.0 ([employer] Test Performed by: [place] [address] [employer] Layout Designer: Shayne Cruz III, M.D. 40 High reactive sample are considered positive for Hepatitis C 41 Low risk: <1.00 Average risk: 1.00-3.00 High risk: >3.00 42 Because ethnic data is not always readily [...] 15-29 5 Kidney failure <15 (or dialysis) 43 RESULT: No apparent monoclonal protein on serum electrophoresis. Test Performed by: [place] [address] [employer]er: Shayne Cruz III, M.D. 44 This test is negative at 24 hours. All samples are held and reviewed again at 7 days. If delayed precipitation occurs after 7 days, Immunofixation will be performed and an additional report will follow. 45 Test Performed by: [place] [address] [employer]er: Shayne Cruz III, M.D. 46 -- REFERENCE VALUE -- 25-HYDROXY D TOTAL (D2+D3) Optimum levels in the healthy population are 20-50, patients with bone disease may benefit from higher levels within this range. Test Performed by: [place] [address] [employer] Designer: Shayne Cruz III, M.D. 47 Test Performed by: [place] [address] [employer] Designer: Shayne Cruz III, M.D. 48 -- REFERENCE VALUE -- <20.0 (Negative) Test Performed by: [place] [address] [employer] Designer: Shayne Cruz III, M.D. 49 Test Performed by: [place] [address] [employer] Designer: Shayne Cruz III, M.D. 50 HDL Interpretation: Undesirable: High Risk: Less than 40 MG/DL Desirable: Low Risk: Greater than 60 MG/DL 51 LDL Interpretation: Low Risk Optimal Level: LDL Less than 100 MG/DL Near or Above Optimal: LDL 100-129 MG/DL Borderline High Risk: LDL 130-159 MG/DL High Risk: LDL 160-189 MG/DL Very High Risk: LDL Greater than 189 MG/DL 52 CHOLESTEROL INTERPRETATION: Desirable: Less than 200 MG/DL Borderline-High Risk: 200-239 MG/DL High-Risk: 240 MG/DL and over 53 HDL INTERPRETATION: Undesirable: High Risk: Less than 40 MG/DL Desirable: Low Risk: Greater than 60 MG/DL 54 LDL INTERPRETATION: Low Risk Optimal Level: LDL Less than 100 MG/DL Near or Above Optimal: LDL 100-129 MG/DL Borderline High Risk: LDL 130-159 MG/DL High Risk: LDL 160-189 MG/DL Very High Risk: LDL Greater than 189 MG/DL 55 Anion gap measurement may be of limited value in the presence of any alkalosis, especially in a combined acid base disorder. . 56 A metabolite of Naproxen, O-desmethylnaproxen, has been shown to interfere with the Jendrassik-Lilian method for measuring total bilirubin. Samples from patients who have taken Naproxen have shown spurious elevation in total bilirubin levels. 57 Because ethnic data is not always readily [...] 15-29 5 Kidney failure <15 (or dialysis) 58 ---- RUN DATE: 11/24/10 [facility] NMI LIVE PAGE 1 RUN TIME: 1115 Specimen Inquiry RUN USER: INTERFACE -- Name: ALTA RAMOS Status: REG REF Re11/23/10 Age/Sex: 60/F Unit#: [id number] Location: [facility] : [birth year] -- Specimen: [id number] SOUT Spec Date: 11/23/[address]: Sol vaca MD Spec Type: CYTOLOGY Received: 11/24/1046 Copies to: SOURCE ECTOCERVICAL/ENDOCERVICAL Thin Prep with [...] years. Final Interpretation electronically signed by: Carolina TOM(ASC) 11/24/10 111 5 -- -- DEPARTMENT OF PATHOLOGY, [address] [place] [address] [facility] [place] Permit #[id number] Errol Carmichael M.D. Director Jaun Grewal M.D. [employer] Dir abdias -- 59 [facility] [employer] DEPARTMENT OF PATHOLOGY or Extension [address] CYTOLOGY REPORT PATIENT: ALTA RAMOS : 1950 AGE: 59 Y SEX: F ACCT: [id number] PROCEDURE DATE: 11/13/2009 DATE RECEIVED: 11/14/2009 REQUESTING PHYSICIAN: CUCO CRUZ LOCATION: [facility] Case No. [id number] PATIENT DATA: [id number] SPECIMEN SUBMITTED: * * (HPVII) THIN PREP W/HPV (LSIL/ASC/DONOVAN) * * CERVICAL/ENDOCERVICAL RELEVANT HISTORY: Previous smear date: 08/20/2008 SPECIMEN ADEQUACY SATISFACTORY FOR EVALUATION, ENDOCERVICAL TRANSFORMATION ZONE COMPONENT PRESENT GENERAL CATEGORIZATION NEGATIVE FOR INTRAEPITHELIAL LESIONS OR MALIGNANCY ADDITIONAL COPIES SENT TO: Screened/Rescreened by: Electronically Signed by: KATHARINA TORIBIO(ASCP) Signed Date/Time 11/17/2009 17:37 Thin Prep Pap tests are examined with an FDA-approved location-guidance system (17577). Performed @ [employer] [address] [place] [address] "" 60 CHOL/HDL Risk Ratio Levels MALE FEMALE 1/2 X Average 3.4 3.3 Average 5.0 4.4 2 X Average 9.5 7.0 3 X Average 24.0 11.0 61 Optimal under 100 mg/dl Near or above Optimal 100 - 129 mg/dl Borderline High 130 - 159 mg/dl High 160 - 189 mg/dl Very High above 190 mg/dl 62 LDL/HDL Risk Ratio Levels MALE FEMALE 1/2 X Average 1.0 1.5 Average 3.6 3.2 2 X Average 6.3 5.0 3 X Average 8.0 6.1 63 mL/min/1.73m2 . Normal Function or Mild Renal [...] drugs that are excreted by the kidneys. 64 ---- RUN DATE: 09/09/08 [facility] NMI LIVE PAGE 1 RUN TIME: 1538 Specimen Inquiry RUN USER: INTERFACE -- Name: ALTA RAMOS Status: REG REF Re09/06/08 Age/Sex: 57/F Unit#: [id number] [facility] [birth year] -- Specimen: [id number] SOUT Spec Date: 09/06/[address]: Chuck valadez MD Spec Type: SURGICAL P Received: 09/06/081470 Copies to: Cristy Gann i, CNP SPECIMEN [...] 09/09/08 1538 -- -- DEPARTMENT OF PATHOLOGY, [address] [place] [address] [facility] [place] Permit #[id number] Errol Carmichael M.D. Director Jaun Grewal M.D. [employer]di[employer] -- 65 Cholesterol Risk Levels (NIH) Recommended: under 200 mg/dl Borderline : 200-239 mg/dl High Risk : Above 240 mg/dl 66 The National Cholesterol Education Program recommends the following ranges for LDL Cholesterol: Optimal under 100 mg/dl Near or above Optimal 100 - 129 mg/dl Borderline High 130 - 159 mg/dl High 160 - 189 mg/dl Very High above 190 mg/dl 67 Triglyceride Risk Levels: Normal : <150 mg/dl Borderline : 150-199 mg/dl High : 200-499 mg/dl Very High : >500 mg/dl 68 LDL/HDL Risk Ratio Levels MALE FEMALE 1/2 X Average 1.00 1.47 Average 3.55 3.22 2 X Average 6.25 5.03 3 X Average 7.99 6.14 69 CHOL/HDL Risk Ratio Levels MALE FEMALE 1/2 X Average 3.4 3.3 Average 5.0 4.4 2 X Average 9.5 7.0 3 X Average 24.0 11.0 70 mL/min/1.73m2 . Normal Function or Mild Renal [...] drugs that are excreted by the kidneys. 71 [employer] DEPARTMENT OF PATHOLOGY or Extension [address] CYTOLOGY REPORT PATIENT: ALTA RAMOS : 1950 AGE: 57 Y SEX: F ACCT: [id number] PROCEDURE DATE: 08/20/2008 DATE RECEIVED: 08/21/2008 REQUESTING PHYSICIAN: CUCO CRUZ LOCATION: [facility] Case No. [id number] PATIENT DATA: [id number] SPECIMEN SUBMITTED: * * (HPVII) THIN PREP W/HPV (LSIL/ASC/DONOVAN) * * CERVICAL RELEVANT HISTORY: Previous smear date: SPECIMEN ADEQUACY SATISFACTORY FOR EVALUATION, ENDOCERVICAL TRANSFORMATION ZONE COMPONENT PRESENT GENERAL CATEGORIZATION NEGATIVE FOR INTRAEPITHELIAL LESIONS OR MALIGNANCY ADDITIONAL COPIES SENT TO: Screened/Rescreened by: Electronically Signed by: KATHARINA SANTOS(ASCP) Signed Date and Time: 08/23/2008 12:53 Thin Prep Pap tests are examined with an FDA-approved location-guidance system (44056). Performed @ [facility] [address] [place] [address] "" 72 PLEASE NOTE NEW REFERENCE RANGES. 73 Greater than or equal to 211 is normal. . 74 [employer]. DEPARTMENT OF PATHOLOGY or Extension [address] CYTOLOGY REPORT PATIENT: ALTA RAMOS : 1950 AGE: 56 Y SEX: F ACCT: [id number] PROCEDURE DATE: 08/02/2007 DATE RECEIVED: 08/03/2007 REQUESTING PHYSICIAN: CUCO CRUZ LOCATION: [facility] Case No. [id number] PATIENT DATA: [id number] NONE PROVIDED SPECIMEN SUBMITTED: * * (HPVII) THIN PREP W/HPV (LSIL/ASC/DONOVAN) * * ENDOCERVICAL RELEVANT HISTORY: SPECIMEN ADEQUACY SATISFACTORY FOR EVALUATION, ENDOCERVICAL TRANSFORMATION ZONE COMPONENT PRESENT GENERAL CATEGORIZATION NEGATIVE FOR INTRAEPITHELIAL LESIONS OR MALIGNANCY ADDITIONAL COPIES SENT TO: Screened/Rescreened by: Electronically Signed by: [email or web address] KATHARINA PRATHER(ASCP) Signed Date 08/10/2007 12:48 Thin Prep Pap tests are examined with an FDA-approved location-guidance system (89588). Performed @ [facility] [address] [place] [address] 75 Cholesterol Risk Levels (NIH) Recommended: under 200 mg/dl Borderline : 200-239 mg/dl High Risk : Above 240 mg/dl 76 The National Cholesterol Education Program recommends the following ranges for LDL Cholesterol: Optimal under 100 mg/dl Near or above Optimal 100 - 129 mg/dl Borderline High 130 - 159 mg/dl High 160 - 189 mg/dl Very High above 190 mg/dl 77 Triglyceride Risk Levels: Normal : <150 mg/dl Borderline : 150-199 mg/dl High : 200-499 mg/dl Very High : >500 mg/dl 78 LDL/HDL Risk Ratio Levels MALE FEMALE 1/2 X Average 1.00 1.47 Average 3.55 3.22 2 X Average 6.25 5.03 3 X Average 7.99 6.14 79 CHOL/HDL Risk Ratio Levels MALE FEMALE 1/2 X Average 3.4 3.3 Average 5.0 4.4 2 X Average 9.5 7.0 3 X Average 24.0 11.0 80 mL/min/1.73m2 . Normal Function or Mild Renal [...] kidneys. Procedures Date Code Description Status 12/30/2014 47369 EKG, at Least 12 Leads w/Interpretation and Report Completed 11/24/2004 23628 EKG, at Least 12 Leads w/Interpretation and Report Completed 11/19/2004 48773 Oximetry - Single Study Completed 11/19/2004 12513 EKG, at Least 12 Leads w/Interpretation and Report Completed Encounters Type Date Location Provider Dx Diagnosis Office Visit 09/20/2018 Main Office Sol Thorpe, E03.9 Hypothyroidism, 4:30p Aravind, R.D. unspecified I10 Essential (primary) hypertension Z23 Encounter for immunization Office Visit 03/24/2015 9:30a Main Office Sol Thorpe, V70.0 Examination General MTrina, R.D. Medical Routine AT Health Care Facility V72.31 Routine Protection Manager Examination 401.9 Hypertension Unspec Office Visit 12/30/2014 11:45a Main Office Sol Thorpe, 465.9 URI Upper Aravind, R.D. Respiratory Infections Acute Unspec Sites 786.05 Shortness Of Breath 780.79 Malaise And Fatigue Other Office Visit 10/28/2014 4:15p Main Office Sol Thorpe, 401.1 Hypertension Benign M.Carolina., R.D. V03.82 Streptococcus Pneumoniae Vaccination Spec Other Office Visit 08/26/2014 1:00p Main Office Sol Thorpe, 401.1 Hypertension Benign M.[place]ina., R.D. 162.5 Malignant Neoplasm Bronchus Or Lung Lower Lung 719.46 Pain Joint Lower Leg Office Visit 06/19/2014 2:45p Main Office Sol Thorpe, 793.11 Solitary Aravind, R.D. Pulmonary Nodule 714.0 Rheumatoid Arthritis Office Visit 04/29/2014 9:15a Main Office Sol Thorpe, 715.09 Osteoarthrosis M.Carolina., R.D. Generalized Multiple Sites 110.4 Dermatophytosis Foot 244.9 Hypothyroidism Other Unspec Office Visit 12/04/2012 4:15p Main Office Sol Thorpe, 244.8 Hypothyroidism Other M.Carolina., R.D. Spec 272.2 Hyperlipidemia Mixed 719.46 Pain Joint Lower Leg 311 Depressive Disorder Not Elsewhere Spec 719.47 Pain Joint Ankle & Foot Office Visit 11/23/2010 1:30p Main Office Sol Thorpe, V70.0 Examination General Aravind, R.D. Medical Routine AT Health Care Facility V72.31 Routine Protection Manager Examination 244.8 Hypothyroidism Other Spec 305.1 Tobacco Use Disorder 311 Depressive Disorder Not Elsewhere Spec 272.2 Hyperlipidemia Mixed V76.51 Special Screening For Malignant Neoplasms Colon 443.0 Raynauds Syndrome 719.46 Pain Joint Lower Leg Office Visit 11/13/2009 9:45a Main Office Cristy Hart V72.31 Routine Protection Manager Nidhi, Examination [facility]P.[facility] V70.0 Examination General Medical [...] Office Visit 08/20/2008 8:45a Main Office Cristy A. V72.31 Routine Protection Manager Nidhi, Examination F.N.P.C[facility] V70.0 Examination General Medical Routine AT Health Care Facility 244.8 Hypothyroidism Other Spec 305.1 Tobacco Use Disorder 443.0 Raynauds Syndrome 627.8 Menopausal & Postmenopausal Disorder Spec Other 311 Depressive Disorder Not Elsewhere Spec 719.46 Pain Joint Lower Leg 272.2 Hyperlipidemia Mixed V76.2 Screening Malignant Neoplasm Cervix Office Visit 08/02/2007 11:45a Main Office Cristy A. V70.0 Examination General Nidhi, F.N.P.C. Medical Routine AT Health Care Facility 244.8 Hypothyroidism Other Spec 311 Depressive Disorder Not Elsewhere Spec 305.1 Tobacco Use Disorder 443.0 Raynauds Syndrome 627.8 Menopausal & Postmenopausal Disorder Spec Other 272.2 Hyperlipidemia Mixed Office Visit 06/14/2007 2:45p Main Office Cristy AKaden 244.8 Hypothyroidism Other Nidhi, Spec F.N.P.C. 311 Depressive Disorder Not Elsewhere Spec 305.1 Tobacco Use Disorder Office Visit 11/24/2004 10:15a Main Office Cristylandy Terrell, F.N.P.C. 782.3 Edema 786.59 Pain Chest Other Office Visit 11/19/2004 12:15p Main Office Cassie Navarro, 466.0 Bronchitis Acute M.DKaden 786.59 Pain Chest Other Office Visit 06/18/2003 3:15p Main Office Niecy Ridley M.D. 959.5 Injury Finger Other & Unspec Plan of Treatment 02/02/2019 - Chet Webber MDJ18.9 Pneumonia, unspecified organismNew Medication:Azithromycin 250 mg - take 2 tablets by mouth one time then take one daily for 4 daysComments:Possible PNA with shortness of breath and decreased oxygen saturation. Treating aggressively due to history of lobectomy.Z90.2 Acquired absence of lung [part of]
--- NOTE | 2019-02-28 14:43 | ED ---
Shortness of Breath - HPI Summary HPI Summary: Pt. is a 68 y.o female who presents to the ER for worsening SOB. Pt. notes she has been feeling SOB over the last few weeks. She saw her PCP and had out patient labs. Hemoglobin 02/23 7.7 and 02/27 6.6. Pt. has remote hx of lung cancer. Otherwise hx of depression and hypothyroidism. Pt. denies dark/bloody stools. Takes a baby ASA daily. Pt. states that today she was short of breath with any activity so presented to the ER. Symptoms are moderate in severity. Pt. notes she had a colonoscopy about 2 mos ago she states was negative. - History of Current Complaint Chief Complaint: EDGeneral Time Seen by Provider: 02/28/19 13:09 Hx Obtained From: Patient - Allergy/Home Medications Allergies/Adverse Reactions: Allergies Allergy/AdvReac Type Severity Reaction Status Date / Time Penicillins Allergy Hives Verified 02/28/19 13:00 Home Medications: Home Medications Aspirin 81 mg CHEW TAB* [Aspirin Low Dose TAB*] 81 mg PO DAILY 02/28/19 [ History Confirmed 02/28/19] Calcium Carbonate/Vitamin D3 [Calcium 600 + Vit D Tablet] 1 each PO DAILY [History Confirmed 02/28/19] Citalopram TAB* [CeleXA TAB*] 10 mg PO DAILY 02/28/19 [History Confirmed ] Levothyroxine TAB* [Synthroid TAB*] 100 mcg PO DAILY 02/28/19 [History Confirmed 02/28/19] Multivitamin [Multivitamins] 1 cap PO DAILY 02/28/19 [History Confirmed 02/28/19 ] Nicotine [Nicotine Patch] 1 each PATCH OFF DAILY 02/28/19 [History Confirmed ] Omeprazole 20 mg PO DAILY 02/28/19 [History Confirmed 02/28/19] amLODIPine TAB* [Norvasc 5 mg TAB*] 5 mg PO DAILY 02/28/19 [History Confirmed ] PMH/Surg Hx/FS Hx/Imm Hx Previously Healthy: Yes Endocrine/Hematology History: Reports: Hx Thyroid Disease Denies: Hx Anticoagulant Therapy, Hx Blood Disorders, Hx Blood Transfusions, Hx Bone Marrow Disease, Hx Diabetes, Hx Systemic Lupus Erythematosus, Hx Sickle Cell Disease, Hx Anemia, Hx Unexplained Bleeding, Other Endocrine/Hematological Disorders Cardiovascular History: Reports: Hx Hypertension, Other Cardiovascular Problems/ Disorders - LUNG CANCER Jul Denies: Hx Aneurysm, Hx Angina, Hx Angioplasty, Hx Auto Implanted Cardiovert Defib, Hx Cardiac Arrest, Hx Cardiomegaly, Hx Congenital Heart Disease, Hx Congestive Heart Failure, Hx Coronary Artery Disease, Hx Deep Vein Thrombosis, Hx Embolism, Hx Hypercholesterolemia, Hx Hypotension, Hx Pacemaker/ICD, Hx Peripheral Vascular Disease, Hx Rheumatic Fever, Hx Syncope, Hx Valvular Heart Disease Respiratory History: Reports: Other Respiratory Problems/Disorders - recent shawdo on lung Denies: Hx Asthma, Hx Chronic Bronchitis, Hx Chronic Obstructive Pulmonary Disease (COPD), Hx Cystic Fibrosis, Hx Lung Cancer, Hx Pleural Effusion, Hx Pneumonia, Hx Pulmonary Edema, Hx Pulmonary Embolism, Hx Seasonal Allergies, Hx Sleep Apnea GI History: Denies: Hx Ulcer History: Denies: Hx Dialysis, Hx Renal Disease Musculoskeletal History: Reports: Hx Arthritis - FEET AND LEFT KNEE Denies: Hx Rheumatoid Arthritis, Hx Back Problems, Hx Bursitis, Hx Congenital Bone Abnormalities, Hx Fibromyalgia, Hx Gout, Hx Orthopedic Injury, Hx Osteoporosis, Hx Scoliosis, Hx Tendonitis, Other Musculoskeletal History Sensory History: Reports: Hx Contacts or Glasses - READING Denies: Hx Cataracts, Hx Eye Injury, Hx Eye Prosthesis, Hx Glaucoma, Hx Legally Blind, Hx Macular Degeneration, Hx Vision Problem, Hx Deafness, Hx Hearing Aid, Hx Hearing Problem, Other Sensory Impairments Opthamlomology History: Reports: Hx Contacts or Glasses - READING Denies: Hx Cataracts, Hx Eye Injury, Hx Eye Prosthesis, Hx Glaucoma, Hx Legally Blind, Hx Macular Degeneration, Hx Vision Problem, Other Sensory Impairments Psychiatric History: Denies: Hx Attention Deficit Hyperactivity Disorder, Hx Eating Disorder, Hx Panic Disorder, Hx Post Traumatic Stress Disorder, Hx Inpatient Treatment, Hx Community Mental Health Tx, Hx Schizophrenia, Hx Bipolar Disorder, Hx Suicide Attempt, Hx of Violent Episodes Against Others, Hx Substance Abuse, Other Psychiatric Issues/Disorders - Cancer History Cancer Type, Location and Year: right lung cancer July 2014 Hx Chemotherapy: No Hx Radiation Therapy: No Hx Palliative Cancer Treatment: No - Surgical History Surgery Procedure, Year, and Place: tubal ligation, tubal repair, appy. Right upper and midle lung lobe removal Hx Anesthesia Reactions: No Infectious Disease History: No Infectious Disease History: Denies: Hx Hepatitis, Hx Human Immunodeficiency Virus (HIV), Hx Tuberculosis , Traveled Outside the [place] in Last 30 Days - Family History Known Family History: Positive: Non-Contributory - Social History Occupation: Retired Lives: With Family Alcohol Use: Weekly Alcohol Amount: WEEKENDS Substance Use Type: Reports: None Smoking Status (MU): Former Smoker Type: Cigarettes Have You Smoked in the Last Year: Yes Review of Systems Constitutional: Negative Negative: Fever, Chills Cardiovascular: Negative Negative: Palpitations, Chest Pain Positive: Shortness Of Breath. Negative: Cough Gastrointestinal: Negative Negative: Abdominal Pain, Vomiting, Diarrhea, Nausea Genitourinary: Negative Neurological: Negative All Other Systems Reviewed And Are Negative: Yes Physical Exam Triage Information Reviewed: Yes Vital Signs On Initial Exam: Initial Vitals Temp Pulse Resp BP Pulse Ox 97.8 F 69 18 105/66 100 02/28/19 12:56 02/28/19 12:56 02/28/19 12:56 02/28/19 12:56 02/28/19 12:56 Vital Signs Reviewed: Yes Appearance: Positive: Well-Appearing - Pt. sitting up in bed in NAD. present. Skin: Positive: Warm, Dry Head/Face: Positive: Normal Head/Face Inspection Eyes: Positive: Normal, EOMI, BETHANY Neck: Positive: Supple Respiratory/Lung Sounds: Positive: Clear to Auscultation, Breath Sounds Present Cardiovascular: Positive: Normal, RRR Abdomen Description: Positive: Nontender, Soft, Other: - Rectal exam performed with pt.'s nurseStephani. Nonthrombosed external hemorrhoids. Digital exam reveals no stool, occult sent. Neurological: Positive: Normal, CN Intact II-III Psychiatric: Positive: Affect/Mood Appropriate Diagnostics - Vital Signs Vital Signs Temp Pulse Resp BP Pulse Ox 02/28/19 13:10 71 19 95 02/28/19 12:56 97.8 F 69 18 105/66 100 - Laboratory Result Diagrams: 02/28/19 14:40 02/28/19 14:40 Lab Statement: Any lab studies that have been ordered have been reviewed, and results considered in the medical decision making process. Course/Dx - Course Course Of Treatment: Pt. presenting with SOB and anemia. ECG done at 1334 shows a sinus rhythm of 65bpm, left axis deviation, no ST elevation of depression. VS stable. Will recheck labs. Occult stool negative. CBC today shows H and H of 6.3 and 19. Pt. had outpt. iron level on 02/27 which showed Fe <17, TIBC 501, and % saturation of 3. Case discussed with hematology, Dr. Rea, who suscepts source is GI given iron levels. She recommends GI consult for scope. She recommends transfusion. 2 units pRBCs ordered. Case discussed with GI, Dr. Rodriguez, who will plan on scoping pt. tomorrow. Case discussed with hospitalist, Dr. Garduno, who will accept pt. to her service. - Diagnoses Provider Diagnoses: Symptomatic anemia Discharge - Sign-Out/Discharge Documenting (check all that apply): Patient Departure Patient Received Moderate/Deep Sedation with Procedure: No - Discharge Plan Condition: Stable Disposition: ADMITTED TO [facility] Referrals: Sol López MD [Primary Care Provider] - - Billing Disposition and Condition Condition: STABLE Disposition: Admitted to [facility]
[2019-02-28 14:55] LABS: INR 1.15 (0.82-1.09)
[2019-02-28 14:56] LABS: Hematocrit 19 % (35-47); Hemoglobin 6.3 g/dL (12.0-16.0); Mean Corpuscular HGB Conc 33 g/dL (31-36); Mean Corpuscular Hemoglobin 31 pg (27-31); Mean Corpuscular Volume 94 fL (80-97); Platelet Count 337 10^3/uL (150-450); Red Blood Count 2.04 10^6 /uL (3.70-4.87); Red Cell Distribution Width 17 % (10.5-15); White Blood Count 4.5 10^3/uL (3.5-10.8)
[2019-02-28 15:35] LABS: ALT 19 U/L (7-52); AST 22 U/L (13-39); Albumin 4.1 g/dL (3.2-5.2); Albumin/Globulin Ratio 1.7 (1-3); Alkaline Phosphatase 60 U/L (34-104); Anion Gap 6 mmol/L (2-11); Blood Urea Nitrogen 15 mg/dL (6-24); CO2 Carbon Dioxide 27 mmol/L (22-32); Calcium 10.1 mg/dL (8.6-10.3); Chloride 104 mmol/L (101-111); EGFR African American 77.8 (>60); EGFR Non-African American 64.3 (>60); Globulin 2.4 g/dL (2-4); Glucose 98 mg/dL (70-100); Potassium 3.9 mmol/L (3.5-5.0); Sodium 137 mmol/L (135-145); Total Protein 6.5 g/dL (6.4-8.9)
[2019-02-28 15:48] LABS: ABS Basophils 0.1 10^3/ul (0-0.2); ABS Eosinophils 0.2 10^3/ul (0-0.6); ABS Lymphocytes 0.9 10^3/ul (1.0-4.8); ABS Monocytes 0.3 10^3/ul (0-0.8); ABS Neutrophils 3.1 10^3/ul (1.5-7.7); Eosinophil % 3.8 %
[2019-02-28] MEDS ORDERED: NS 0.9% 1000 ML** 1,000 ML IV SCH ×2 (17:00→18:30)
[2019-02-28 17:38] LABS: % Iron Saturation 3 % (15-55); Iron 17 ug/dL (50-212); Total Iron Binding Capacity 500 mcg/dL (250-450); Transferrin 357 mg/dL (203-362)
[2019-02-28 17:53] LABS: TSH (Thyroid Stimulating Horm) 1.11 mcIU/mL (0.34-5.60)
[2019-02-28] MEDS ORDERED: Pantoprazole IV* 40 MG IV SCH ×2 (18:00)
[2019-02-28 18:04] LABS: Folate > 20.00 ng/mL (>3.99)
[2019-02-28] MEDS ORDERED: Pantoprazole IV* 40 MG IV ONE (18:29)
--- NOTE | 2019-02-28 19:43 | HP ---
CC: Dr. Thorpe * HISTORY AND PHYSICAL: DATE OF ADMISSION: 02/28/19 PROVIDER: Estephanie Prak NP. PRIMARY CARE PROVIDER: Dr. Thorpe. ATTENDING PHYSICIAN WHILE IN THE HOSPITAL: Padmini Krishnamurthy MD * (dictated by Estephanie Park NP). CHIEF COMPLAINT: Anemia. HISTORY OF PRESENT ILLNESS: Ms. Koch is a 68-year-old female with a past medical history significant for lung cancer in remission x5 years, depression, hypertension, arthritis who presented to the emergency room per instruction of her primary care provider. The patient reports that she has developed increased shortness of breath over the past 2 weeks. She was seen by her primary care provider on Tuesday and it was noted that she was more anemic. She had repeat blood work done on Tuesday and was called today and instructed to report to the emergency room due to the continued decrease in her blood counts. The patient reports that she has been fatigued and she gets severely short of breath with exertion. She does also report that she is feeling weaker. She denies any dizziness or lightheadedness. She reports that she had a colonoscopy approximately 2 months ago, which was within normal limits. She does report that she has been taking Aleve or ibuprofen on a daily basis and has also had some indigestion on and off for the past year. She denies any black or tarry stools. She denies any vomiting of blood. Denies any loss of appetite. While in the emergency room, the patient had routine lab work drawn. She was found to be profoundly anemic with an H and H of 6.3 and 19 and symptomatic with shortness of breath. Due to these findings, we were asked to see and evaluate her for admission. The emergency room also contacted Dr. Cummins for GI who will perform an upper endoscopy on the patient tomorrow. PAST MEDICAL HISTORY: 1. Lung cancer in remission x5 years. 2. Depression. 3. Hypertension. 4. Arthritis. PAST SURGICAL HISTORY: 1. Pneumonectomy of the right lung, 2 lobes. 2. Appendectomy. 3. Tubal ligation. MEDICATIONS: Home medications: 1. Nicotine patch. 2. Bupropion 150 mg p.o. daily. 3. Multivitamin 1 cap p.o. daily. 4. Aspirin 81 mg p.o. daily. 5. Omeprazole 20 mg p.o. daily. 6. Celexa 10 mg p.o. daily. 7. Calcium carbonate 1 tablet p.o. daily. 8. Amlodipine 5 mg p.o. daily. 9. Levothyroxine 100 mcg p.o. daily. ALLERGIES: Allergy to PENICILLIN. FAMILY HISTORY: No reported history of coronary artery disease or diabetes. Grandmother had breast cancer. SOCIAL HISTORY: The patient reports that she stopped smoking approximately 1 week ago. Prior to that, she smoked for approximately 50 years, 1 pack per day. The patient does report that she drinks alcohol 2 to 3 times weekly. She has a couple glasses of wine. Denies any illicit drug use. She is . She lives with her . Surrogate decision maker in the event she is unable to make her own decisions is her . She is a full code. The patient denies any fever or chills. Denies any chest pain or edema. REVIEW OF SYSTEMS: Denies any fever or chest pain. Denies any edema, cough, hemoptysis. No nausea, vomiting, diarrhea, or abdominal pain. The patient does report shortness of breath with exertion. Denies hematuria, dysuria, focal weakness, sensory loss. Denies any dysphagia. She does report chronic joint and muscle aches from her arthritis. Denies any rashes, lesions, open sores, psychosis, or anxiety. PHYSICAL EXAMINATION GENERAL: At this time, Ms. Koch is a 68-year-old female, she is alert, her color is pale, she is resting on the stretcher in the emergency room, in no acute distress. VITAL SIGNS: Blood pressure 136/56, heart rate 63, respirations are 18, O2 saturation 95%, temp is 97.8. HEENT: Head is atraumatic, normocephalic. Eyes: EOMs are intact. Sclerae are pale. Oral mucosa is dry and pale. NECK: Supple. LUNGS: Clear to auscultation bilaterally. No wheezes, rales, or rhonchi. CARDIAC: S1, S2. Regular rate and rhythm. No murmurs, rubs, or gallops. ABDOMEN: Soft and nontender. Bowel sounds are present x4. EXTREMITIES: She is able to move all 4 extremities with 5/5 strength. Pedal pulses are +2 bilaterally. There is no clubbing or cyanosis. NEUROLOGIC: She is awake, alert, oriented x3. Speech is clear. Thought process is intact. There are no gross focal deficits. PSYCH: The patient is alert and oriented x4. She is calm and cooperative. SKIN: Intact. LABORATORY DATA AND DIAGNOSTIC STUDIES: WBCs are 4.5, RBCs 2.04, hemoglobin 6.3, hematocrit is 19, platelet count was 337, RDWs were 17. INR was 1.15. Sodium 137, potassium 3.9, chloride 104, carbon dioxide is 27, anion gap is 6, BUN was 15, creatinine 0.88, glucose is 98. Calcium 10.1. ASTs are 22, ALTs are 19, alkaline phosphatase was 60. Troponin 0.00. TSH was 1.11. She had an electrocardiogram that showed sinus rhythm at a rate of 65. She does have some inverted T waves in leads II and III, aVF and inverted T waves in V1, inverted T waves were consistent with EKG from 2014. ASSESSMENT AND PLAN: Ms. Koch is a 68-year-old female with a past medical history significant for lung cancer in remission x5 years, depression, hypertension, arthritis who presented to the emergency room with profound anemia. She will be admitted under observation for: 1. Profound anemia. I will get iron studies and folate level. She will be given Protonix 80 mg IV and placed on a Protonix drip. She will be seen by GI, Dr. Vladimir Kumari, who is contacted by the emergency room and will be scheduled for an upper endoscopy tomorrow. She did have a guaiac of her stool, which was negative. She will receive 2 units of packed red blood cells. We will repeat an H and H 6 hours after completion of her blood. She will also have a repeat CBC and BMP in the a.m. 2. Depression. She can continue her Celexa as previously prescribed. 3. Hypertension. I am going to hold her amlodipine at this time due to her profound anemia and questionable bleeding. I will also hold her aspirin. 4. FEN. She can have a clear liquid diet. She will be n.p.o. after midnight for procedure tomorrow. 5. DVT prophylaxis. She will have SCDs. I will hold chemical DVT prophylaxis at this time as the patient is anemic and concern for bleeding. 6. Code status. She is a full code. TIME SPENT: Time spent on this admission was approximately 60 minutes, greater than half that time was spent at the bedside reviewing events leading thus far to her hospitalization, performing my physical exam, and reviewing my plan of care. I have discussed this with my attending Dr. Padmini Krishnamurthy; she is in agreement with my plan. ESTEPHANIE PARK, BIOMETRIC FINGERPRINTING TECHNICIAN [id number]/[facility] #: [id number] RACH
[2019-02-28] MEDS: Pantoprazole* 80 mg IN NS 80 MG/250 ML BAG IVPB SCH (21:11)
[2019-03-01 01:20] LABS: Hematocrit 26 % (35-47); Hemoglobin 8.7 g/dL (12.0-16.0)
--- NOTE | 2019-03-01 01:31 | CONS ---
GASTROENTEROLOGY CONSULT REPORT: DATE OF CONSULT: 02/28/19 REASON FOR CONSULT: Anemia. HISTORY OF PRESENT ILLNESS: Ms. Koch is a 68-year-old woman with a history of lung cancer, status post surgical resection, now in remission, depression, hypertension, and arthritis who was admitted with symptomatic anemia. Ms. Koch reports being in usual state of health until several weeks ago and she began to notice increased shortness of breath as well as weakness. She was seen by her primary care doctor last week and was noted to have hemoglobin of 7.7. This is in comparison to a hemoglobin of 12.2 on 09/29/18. Repeat hemoglobin 4 days later on 02/27/19 was 6.6. The patient was referred to the ER for further evaluation. In the ED, Ms. Koch was hemodynamically stable. Repeat labs confirmed a hemoglobin of 6.3 and hematocrit of 19. Labs also demonstrated a percent iron saturation of 3 and iron of 17 consistent with iron deficiency. The patient was admitted to Medicine. Transfusion ordered. On interview, Ms. Koch states that she has history of indigestion-type symptoms. These symptoms occur a few times per week and has been present for several years. She does not think that her indigestion has significantly changed recently. She will occasionally use Tums with partial improvement. She denies any nausea, vomiting or dysphagia. She has a bowel movement regularly daily. Stool is not bloody or melenic. She has noticed some early satiety and decreased appetite. Since she retired a year ago, Ms. Koch has lost approximately 50 pounds. She said that she has not put any effort in this weight loss. 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 Ms. Koch uses Aleve or ibuprofen on a daily basis for her arthritis. She has used this for a long time. She also takes a baby aspirin daily. We started on omeprazole yesterday. The patient had a colonoscopy performed on 11/17/18. This colonoscopy noted a single sigmoid colon polyp and very mild diverticulosis. The polyp was hyperplastic on pathologic review. No prior upper endoscopy. PAST MEDICAL HISTORY: Includes lung cancer, status post right upper and middle lung lobe resection 5 years ago, currently in remission. History also included depression, hypertension, arthritis. PAST SURGICAL HISTORY: 1. Pneumonectomy of the right upper and middle lobes, 5 years ago. 2. Appendectomy. 3. Tubal ligation. MEDICATIONS: Home medications include: 1. Nicotine patch. 2. Amlodipine 5 mg daily. 3. Aspirin 81 mg daily. 4. Calcium and vitamin D. 5. Citalopram 10 mg daily. 6. Levothyroxine 100 mcg daily. 7. Multivitamin daily. 8. Omeprazole 20 mg daily - only started the day prior to admission. ALLERGIES: PENICILLIN - Hives. FAMILY HISTORY: No known GI or liver disease in the family. Maternal grandmother with breast cancer. SOCIAL HISTORY: , retired within the past year. Drinks alcohol up to a few days a week. She drinks up to a few glasses of wine at a time. Former smoker, quit 5 years ago. No drug use. REVIEW OF SYSTEMS: Negative except as above. PHYSICAL EXAM: Vital Signs: Afebrile, heart rate 61, blood pressure was 166/73 , and 100% on room air. General: Pleasant woman, resting at bed. Several family members at bedside. HEENT: Mucous membranes moist. Pulmonary: Breathing comfortably. No dyspnea with conversation. Abdomen: Soft, nontender , nondistended. Extremities: No edema. Skin: No jaundice. Neuro: A and O x3. No gross neuro deficits. Psych: Normal effect and behavior. DIAGNOSTIC STUDIES/LAB DATA: Labs reviewed and summarized in HPI. Current hemoglobin 6.3, hematocrit 19, MCV 94, platelet count 337. INR 1.15. BUN and creatinine are normal. Iron is 17, TSAT 3. LFTs normal. Imaging: No recent abdominal imaging. Procedure: Colonoscopy from November 2018 reviewed in the HPI, 1 hyperplastic polyp and very mild sigmoid diverticulosis. IMPRESSION AND RECOMMENDATIONS: Ms. Koch is a 68-year-old woman with history of lung cancer, status post surgical resection, is now in remission and osteoarthritis, on daily NSAIDs, who presents with symptomatic anemia. Ms. Koch was noted to have anemia on labs last week. This represents an acute change from labs in September 2018 which were normal. Iron studies are supportive of iron deficiency. The patient denies any overt gastrointestinal bleeding. She does report indigestion fairly frequently as well as daily NSAID use. Clinical suspicion at this point is highest for an upper GI bleed, possibly related to peptic ulcer disease. The patient does report approximately 50-pound weight loss over the past year, which also raises some question of possibility of malignancy. A colonoscopy in November 2018 was negative for anything other than mild diverticulosis and the tiny hyperplastic polyp. 1. Recommend IV PPI t.i.d. or drip. 2. Continue to monitor CBC. Agree with transfusion. 3. Clear diet. N.p.o. after midnight. Tentatively planned for EGD tomorrow. 4. Avoid NSAIDs. 5. May need to consider cross sectional abdominal imaging depending on EGD findings given patient's significant weight loss complaints over the past year. Chest CT approximately 6 month ago was negative for any recurrence of her lung cancer. Thank you very much for this consult. GI will continue to follow. [id number]/[facility] #: [id number] RACH
[2019-03-01] MEDS: Levothyroxine TAB* 100 MCG TAB PO SCH (05:31)
[2019-03-01 06:53] LABS: ABS Basophils 0.1 10^3/ul (0-0.2); ABS Eosinophils 0.4 10^3/ul (0-0.6); ABS Lymphocytes 1.1 10^3/ul (1.0-4.8); ABS Monocytes 0.4 10^3/ul (0-0.8); ABS Neutrophils 3.5 10^3/ul (1.5-7.7); Eosinophil % 7.1 %; Hematocrit 27 % (35-47); Lymphocyte % 20.2 %; Mean Corpuscular HGB Conc 33 g/dL (31-36); Mean Corpuscular Hemoglobin 31 pg (27-31); Mean Corpuscular Volume 94 fL (80-97); Platelet Count 298 10^3/uL (150-450); Red Cell Distribution Width 16 % (10.5-15); White Blood Count 5.5 10^3/uL (3.5-10.8)
[2019-03-01 07:07] LABS: BUN/Creatinine Ratio 12.5 (8-20); Calcium 9.2 mg/dL (8.6-10.3); EGFR African American 77.8 (>60); EGFR Non-African American 64.3 (>60); Potassium 3.7 mmol/L (3.5-5.0)
[2019-03-01] MEDS: Nicotine PATCH 14 MG/24 HR* PATCH TRANSDERM SCH (08:09)
[2019-03-01] MEDS: buPROPion SR TAB.SR* 150 MG PO SCH (08:10)
[2019-03-01] MEDS: Citalopram TAB* 10 MG PO SCH (08:10)
[2019-03-01] MEDS: Pantoprazole* 80 mg IN NS 80 MG/250 ML BAG IVPB SCH ×2 (08:48→19:25)
[2019-03-01] MEDS ORDERED: Acetaminophen ADULT LIQ* 650 MG/20.3 ML UDC PO ONE (09:01)
[2019-03-01] MEDS ORDERED: fentaNYL* 50 MCG/ML 2 ML VIAL (100 MCG VIAL) ONE (13:47)
[2019-03-01] MEDS ORDERED: Midazolam* 1 MG/ML 10 ML VIAL (10 MG) ONE (13:47)
[2019-03-01] MEDS ORDERED: Iohexol 300* (CONTRAST) 10 ML SDV IV ONE (16:37)
--- NOTE | 2019-03-01 17:32 | PN ---
Subjective Date of Service: 03/01/19 Interval History: Pt is feeling well. She still feels a little loopy post EGD. She denies any pain or SOB. Objective Active Medications: Bupropion HCl (Wellbutrin Sr Tab*) 150 mg PO DAILY [facility] Last Admin: 03/01/19 08:10 Dose: 150 mg Citalopram Hydrobromide (Celexa Tab*) 10 mg PO DAILY [facility] Last Admin: 03/01/19 08:10 Dose: 10 mg Levothyroxine Sodium (Synthroid Tab*) 100 mcg PO DAILY@0600 [facility] Last Admin: 03/01/19 05:31 Dose: 100 mcg Nicotine (Nicotine Patch 14 Mg/24 Hr*) 1 patch TRANSDERM DAILY [facility] Last Admin: 03/01/19 08:09 Dose: 1 patch Pharmacy Profile Note (Nicotine Patch Removal Note*) 1 note PATCH OFF 2100 [facility] Vital Signs - 8 hr 03/01/19 16:22 Temperature 97.5 F Pulse Rate 53 Respiratory 16 Rate Blood Pressure 151/74 (mmHg) O2 Sat by Pulse 97 Oximetry Oxygen Devices in Use Now: None Appearance: Middle aged female sitting up in bed, NAD Eyes: No Scleral Icterus Ears/Nose/Mouth/Throat: Mucous Membranes Moist Respiratory: Symmetrical Chest Expansion and Respiratory Effort, Clear to Auscultation Cardiovascular: NL Sounds; No Murmurs; No JVD, RRR, No Edema Abdominal: NL Sounds; No Tenderness; No Distention Extremities: No Clubbing, Cyanosis Skin: No Nodules or Sclerosis Neurological: Alert and Oriented x 3 Result Diagrams: 03/01/19 06:19 03/01/19 06:19 Microbiology and Other Data: Microbiology 02/28/19 13:18 Stool Occult Blood (RHYS) - Final Stool Assess/Plan/Problems-Billing Ms Koch is a 68 yo F who has a h/o HTN, depression and h/o lung cancer s/p partial pneumonectomy who presented to the ER with c/o anemia found by her PCP on lab work. - Patient Problems (1) Anemia Current Visit: Yes Status: Acute Code(s): D64.9 - ANEMIA, UNSPECIFIED SNOMED Code(s): 417824667 Comment: H/H improved after 2 units PRBC. EGD done today did not reveal any evidence of bleeding. Gastric polyp found and removed- bleeding developed after this. Monitor overnight per Dr. Payne. Stop protonix drip. Capsule endoscopy to be done as outpatient. Dr. Payne also recommends oncology eval for possible bone marrow process. (2) Depression Current Visit: Yes Status: Chronic Code(s): F32.9 - MAJOR DEPRESSIVE DISORDER, SINGLE EPISODE, UNSPECIFIED SNOMED Code(s): 54441842 Comment: Continue celexa and wellbutrin. (3) DVT prophylaxis Current Visit: Yes Status: Acute Code(s): Z29.9 - ENCOUNTER FOR PROPHYLACTIC MEASURES, UNSPECIFIED SNOMED Code(s): 627076586 Comment: SCDs (4) Full code status Current Visit: Yes Status: Acute Code(s): Z78.9 - OTHER SPECIFIED HEALTH STATUS SNOMED Code(s): 402824136
[2019-03-01] MEDS ORDERED: Iohexol 350* (CONTRAST) 500 ML MDV IV ONE (18:45)
[2019-03-01] MEDS ORDERED: Acetaminophen ADULT LIQ* 650 MG/20.3 ML UDC PO PRN (20:41)
[2019-03-01] MEDS ORDERED: Nicotine Patch Removal NOTE PATCH OFF SCH (21:00)
--- NOTE | 2019-03-01 22:19 | PRO ---
CC: Dr. Sol Thorpe * DATE OF PROCEDURE: 03/01/19 - ROOM #[id number] PRIMARY CARE PHYSICIAN: Dr. Sol Thorpe. INDICATION FOR PROCEDURE: Anemia. PROCEDURE PERFORMED: Complete esophagogastroduodenoscopy with biopsies. MEDICATIONS GIVEN: 8 mg IV midazolam, 25 mcg IV fentanyl. DESCRIPTION OF PROCEDURE: After the EGD procedure including the risks, benefits , and alternatives with the risks not limited to perforation, surgery, missed lesions, and/or were explained to the patient, written informed consent was obtained. IV medication was given and a bite block was placed between the teeth. The adult Olympus gastroscope was then inserted into the patient's oropharynx into the tubular esophagus. She had mild variability to the GE junction. This was biopsied. An associated 3-cm hiatal hernia was appreciated. The scope was advanced through the lower esophageal sphincter and retroflexed. No Jayden erosions were appreciated. She did have a small gastric polyp that I removed with biopsy polypectomy. It did look slightly inflamed. There was some oozing afterwards. I did prophylactically place a clip over this area with good effect and resolution. There was no fresh or old blood encountered prior to this. There was no evidence for ulceration. A few scant superficial erosions were in the antrum; however, these were not significant enough to cause blood loss. A biopsy was taken for H. pylori testing. The scope was advanced through the widely patent pylorus into the duodenal bulb, C-loop, distal duodenum. These were normal in appearance with a normal villous pattern. The scope was then removed from the patient. She tolerated the procedure well. She returned to the recovery room in stable condition. IMPRESSION: 1. Complete esophagogastroduodenoscopy with biopsies. 2. No cause of anemia identified. 3. Gastric polyp removed with biopsy polypectomy and clip placement over the area due to oozing after. 4. Gastric erosions but no distinct ulceration, biopsy for JANETH testing. 5. Normal-appearing duodenum. 6. [id number] hiatal hernia. RECOMMENDATIONS: No cause of anemia was identified on the exam today. We would observe for stable blood counts over the evening through tomorrow. I would like to get a CAT scan of the abdomen and pelvis with pancreatic protocol prior to discharge to ensure that there is no evidence of pancreatic malignancy given her persistent epigastric pain and no clear etiology. She had a previous colonoscopy with Dr. Sanderson that did not reveal a cause for anemia. I would recommend an outpatient capsule endoscopy; however, concurrently would recommend the patient follow up with Stefani Rea of Oncology, whom she had seen in the past, to further work up this anemia to see if this is a bone marrow issue at play. In addition, IV iron may be beneficial. [id number]/[facility] #: [id number] MTDD
[2019-03-02] MEDS: Levothyroxine TAB* 100 MCG TAB PO SCH (05:57)
[2019-03-02] MEDS: Nicotine PATCH 14 MG/24 HR* PATCH TRANSDERM SCH (07:24)
[2019-03-02] MEDS: buPROPion SR TAB.SR* 150 MG PO SCH (07:24)
[2019-03-02] MEDS: Citalopram TAB* 10 MG PO SCH (07:24)
[2019-03-02 07:56] VITALS: BP 137/68
[2019-03-02 10:00] LABS: Hematocrit 29 % (35-47); Hemoglobin 9.5 g/dL (12.0-16.0); Mean Corpuscular HGB Conc 33 g/dL (31-36); Mean Corpuscular Hemoglobin 31 pg (27-31); Mean Corpuscular Volume 94 fL (80-97); Mean Platelet Volume 7.9 fL (7.4-10.4); Platelet Count 339 10^3/uL (150-450); Red Blood Count 3.11 10^6 /uL (3.70-4.87); Red Cell Distribution Width 16 % (10.5-15); White Blood Count 5.2 10^3/uL (3.5-10.8)
== END 2019-03-02 11:42 | disposition home or self-care (01) | DRG 812 ==
LOC: ED 12:53 → MEDTELE 16:59 → OBSVTOIN 03-01 14:00
PROVIDERS: ADMIT Internal Medicine; ATTEND Hospitalist
PROC: 30233N1 Transfusion of Nonautologous Red Blood Cells into Peripheral Vein, Percutaneous Approach (ICD-10-PCS; principal; 2019-02-27)
PROC: 0DD48ZX Extraction of Esophagogastric Junction, Via Natural or Artificial Opening Endoscopic, Diagnostic (ICD-10-PCS; 2019-03-01)
PROC: 0DD68ZX Extraction of Stomach, Via Natural or Artificial Opening Endoscopic, Diagnostic (ICD-10-PCS; 2019-03-01)
PROC: 0DB68ZX Excision of Stomach, Via Natural or Artificial Opening Endoscopic, Diagnostic (ICD-10-PCS; 2019-03-01)
DX: D50.9 Iron deficiency anemia, unspecified (principal); K31.7 Polyp of stomach and duodenum; K44.9 Diaphragmatic hernia without obstruction or gangrene; K25.9 Gastric ulcer, unspecified as acute or chronic, without hemorrhage or perforation; F32.9 Major depressive disorder, single episode, unspecified; I10 Essential (primary) hypertension; M19.90 Unspecified osteoarthritis, unspecified site; Z85.118 Personal history of other malignant neoplasm of bronchus and lung; Z79.82 Long term (current) use of aspirin; Z79.899 Other long term (current) drug therapy; Z88.0 Allergy status to penicillin; Z80.3 Family history of malignant neoplasm of breast; Z87.891 Personal history of nicotine dependence
CPT/HCPCS: 36415; 74178; 80048; 80053; 82272; 82746; 83540; 83550; 84443; 84484; 85014; 85018; 85025; 85027; 85610; 86850; 86900; 86901; 86922; 87077; 88305; 88312; 88342; 93005; 96365; 99156; 99285; A9270-GY; G0378; J2250; J3010; P9040

== ENCOUNTER 2019-05-17 16:44 | Emergency (ER) | payer MEDICARE, BC ==
--- NOTE | 2019-05-17 17:34 | ED ---
HPI Chest Pain - HPI Summary HPI Summary: A 68 y/o female presents to [facility] with a chief complaint of right sided chest pain today. The patient was sent from Dr. Rea's office. The patient also reports right shoulder pain and SOB. At triage she rated her pain as a 4/10 in severity. She has a Hx of Lung cancer. The patient was sent here with a plan of being transferred to [facility]. - History of Current Complaint Chief Complaint: EDChestWallPain Time Seen by Provider: 05/17/19 17:10 Hx Obtained From: Patient Onset/Duration: Started Hours Ago, Still Present Timing: Constant, Lasting Hours Initial Severity: Moderate Current Severity: Moderate Pain Intensity: 4 Pain Scale Used: 0-10 Numeric Chest Pain Location: Discrete at: - right sided Chest Pain Radiates: Yes Chest Pain Radiates To:: Shoulder - right shoulder Character: Other: - unable to describe Aggravating Factor(s): Nothing Alleviating Factor(s): Nothing Associated Signs and Symptoms: Positive: Shortness of Breath, Other: - right shoulder pain. Negative: Fever - Additional Pertinent History Primary Care Physician: [id number] - Allergy/Home Medications Allergies/Adverse Reactions: Allergies Allergy/AdvReac Type Severity Reaction Status Date / Time Penicillins Allergy Hives Verified 05/16/19 09:54 Home Medications: Home Medications Bupropion XL* [Wellbutrin XL *] 150 mg PO DAILY 05/17/19 [History Confirmed 11/04] Citalopram TAB* [CeleXA TAB*] 10 mg PO DAILY 05/17/19 [History Confirmed ] Multivitamins/Minerals TAB* [Theragran/minerals TAB*] 1 tab PO DAILY 05/17/19 [ History Confirmed 05/17/19] Omeprazole CAP (NF) [Prilosec CAP* 20 MG] 20 mg PO DAILY 05/17/19 [History Confirmed 05/17/19] PMH/Surg Hx/FS Hx/Imm Hx Endocrine/Hematology History: Reports: Hx Thyroid Disease Denies: Hx Anticoagulant Therapy, Hx Blood Disorders, Hx Blood Transfusions, Hx Bone Marrow Disease, Hx Diabetes, Hx Systemic Lupus Erythematosus, Hx Sickle Cell Disease, Hx Anemia, Hx Unexplained Bleeding, Other Endocrine/Hematological Disorders Cardiovascular History: Reports: Hx Hypertension, Other Cardiovascular Problems/ Disorders - LUNG CANCER Jul Denies: Hx Aneurysm, Hx Angina, Hx Angioplasty, Hx Auto Implanted Cardiovert Defib, Hx Cardiac Arrest, Hx Cardiomegaly, Hx Congenital Heart Disease, Hx Congestive Heart Failure, Hx Coronary Artery Disease, Hx Deep Vein Thrombosis, Hx Embolism, Hx Hypercholesterolemia, Hx Hypotension, Hx Pacemaker/ICD, Hx Peripheral Vascular Disease, Hx Rheumatic Fever, Hx Syncope, Hx Valvular Heart Disease Respiratory History: Reports: Other Respiratory Problems/Disorders - recent shawdo on lung Denies: Hx Asthma, Hx Chronic Bronchitis, Hx Chronic Obstructive Pulmonary Disease (COPD), Hx Cystic Fibrosis, Hx Lung Cancer, Hx Pleural Effusion, Hx Pneumonia, Hx Pulmonary Edema, Hx Pulmonary Embolism, Hx Seasonal Allergies, Hx Sleep Apnea GI History: Denies: Hx Ulcer History: Denies: Hx Dialysis, Hx Renal Disease Musculoskeletal History: Reports: Hx Arthritis - FEET AND LEFT KNEE Denies: Hx Rheumatoid Arthritis, Hx Back Problems, Hx Bursitis, Hx Congenital Bone Abnormalities, Hx Fibromyalgia, Hx Gout, Hx Orthopedic Injury, Hx Osteoporosis, Hx Scoliosis, Hx Tendonitis, Other Musculoskeletal History Sensory History: Reports: Hx Contacts or Glasses Denies: Hx Cataracts, Hx Eye Injury, Hx Eye Prosthesis, Hx Glaucoma, Hx Legally Blind, Hx Macular Degeneration, Hx Vision Problem, Hx Deafness, Hx Hearing Aid, Hx Hearing Problem, Other Sensory Impairments Opthamlomology History: Reports: Hx Contacts or Glasses Denies: Hx Cataracts, Hx Eye Injury, Hx Eye Prosthesis, Hx Glaucoma, Hx Legally Blind, Hx Macular Degeneration, Hx Vision Problem, Other Sensory Impairments Psychiatric History: Denies: Hx Attention Deficit Hyperactivity Disorder, Hx Eating Disorder, Hx Panic Disorder, Hx Post Traumatic Stress Disorder, Hx Inpatient Treatment, Hx Community Mental Health Tx, Hx Schizophrenia, Hx Bipolar Disorder, Hx Suicide Attempt, Hx of Violent Episodes Against Others, Hx Substance Abuse, Other Psychiatric Issues/Disorders - Cancer History Cancer Type, Location and Year: right lung cancer July 2014 Hx Chemotherapy: No Hx Radiation Therapy: No Hx Palliative Cancer Treatment: No - Surgical History Surgery Procedure, Year, and Place: tubal ligation, tubal repair, appy. Right upper and midle lung lobe removal Hx Anesthesia Reactions: No Infectious Disease History: No Infectious Disease History: Denies: Hx Hepatitis, Hx Human Immunodeficiency Virus (HIV), Hx Tuberculosis , Traveled Outside the [place] in Last 30 Days - Family History Known Family History: Positive: Non-Contributory - Social History Alcohol Use: Weekly Alcohol Amount: WEEKENDS Substance Use Type: Reports: None Smoking Status (MU): Former Smoker Type: Cigarettes Have You Smoked in the Last Year: Yes Review of Systems Negative: Fever Positive: Chest Pain All Other Systems Reviewed And Are Negative: Yes Physical Exam - Summary Physical Exam Summary: Appearance: The patient is well-nourished in no acute distress and in no acute pain. Skin: The skin is warm and dry and skin color reflects adequate perfusion. HEENT: The head is normocephalic and atraumatic. The pupils are equal and reactive. The conjunctivae are clear and without drainage. Nares are patent and without drainage. Mouth reveals moist mucous membranes and the throat is without erythema and exudate. The external ears are intact. The ear canals are patent and without drainage. The tympanic membranes are intact. Neck: The neck is supple with full range of motion and non-tender. There are no carotid bruits. There is no neck vein distension. Respiratory: Chest is non-tender. Lungs are clear to auscultation and breath sounds are symmetrical and equal. Cardiovascular: Heart is regular rate and rhythm. There is no murmur or rub auscultated. There is no peripheral edema and pulses are symmetrical and equal. Abdomen: The abdomen is soft and non-tender. There are normal bowel sounds heard in all four quadrants and there is no organomegaly palpated. Musculoskeletal: There is no back tenderness noted. Extremities are non-tender with full range of motion. There is good capillary refill. There is no peripheral edema or calf tenderness elicited. Neurological: Patient is alert and oriented to person, place and time. The patient has symmetrical motor strength in all four extremities. Cranial nerves are grossly intact. Deep tendon reflexes are symmetrical and equal in all four extremities. Psychiatric: The patient has an appropriate affect and does not exhibit any anxiety or depression. Triage Information Reviewed: Yes Vital Signs On Initial Exam: Initial Vitals Temp Pulse Resp BP Pulse Ox 98.5 F 69 18 146/87 94 05/17/19 16:47 05/17/19 16:47 05/17/19 16:47 05/17/19 16:47 05/17/19 16:47 Vital Signs Reviewed: Yes Diagnostics - Vital Signs Vital Signs Temp Pulse Resp BP Pulse Ox 05/17/19 16:47 98.5 F 69 18 146/87 94 - Laboratory Lab Statement: Any lab studies that have been ordered have been reviewed, and results considered in the medical decision making process. Chest Pain Course/Dx - Course Course Of Treatment: Ms. Koch is very stable at this point. She needs to be evaluated for possible stenting as she is certainly at risk for a superior vena cava syndrome. I think this is best accomplished in a facility that can deal with her oncological workup as well as her cardiothoracic vascular issue. I contacted [facility] who directed admitted to the emergency department for Dr. Guzman. - Diagnoses Provider Diagnoses: Mediastinal mass, Superior vena cava syndrome Discharge - Sign-Out/Discharge Documenting (check all that apply): Patient Departure - transfer Patient Received Moderate/Deep Sedation with Procedure: No - Discharge Plan Condition: Fair Disposition: TRANS HIGHER LVL OF CARE FAC Referrals: Sol López MD [Primary Care Provider] - - Billing Disposition and Condition Condition: FAIR Disposition: Trans Higher Lvl of Care Fac - Attestation Statements Document Initiated by Scribe: Yes Documenting Scribe: Álvaro Perez Provider For Whom Scribe is Documenting (Include Credential): Brayden Hallman MD Scribe Attestation: I, Álvaro Perez, scribed for Brayden Hallman MD on 05/17/19 at 1915. Scribe Documentation Reviewed: Yes Provider Attestation: The documentation as recorded by the Álvaro wilson accurately reflects the service I personally performed and the decisions made by me, Brayden Hallman MD Status of Scribe Document: Viewed Consult Consult: At 18:16 Discussed case with transfer center. At 18:31 Discussed case with transfer center. At 18:43 Discussed case with [facility], who accepted the patient for transfer.
[2019-05-17 19:33] VITALS: BP 163/89
== END 2019-05-17 19:38 | disposition short-term general hospital (02) ==
LOC: ED 16:44
DX: R22.2 Localized swelling, mass and lump, trunk (principal); I87.1 Compression of vein; Z88.0 Allergy status to penicillin; Z79.899 Other long term (current) drug therapy; E07.9 Disorder of thyroid, unspecified; I10 Essential (primary) hypertension; Z87.891 Personal history of nicotine dependence; Z85.118 Personal history of other malignant neoplasm of bronchus and lung; K80.20 Calculus of gallbladder without cholecystitis without obstruction; I70.0 Atherosclerosis of aorta; I82.290 Acute embolism and thrombosis of other thoracic veins; M50.30 Other cervical disc degeneration, unspecified cervical region; M47.892 Other spondylosis, cervical region; M48.02 Spinal stenosis, cervical region; R93.89 Abnormal findings on diagnostic imaging of other specified body structures
CPT/HCPCS: 71260; 72125; 74177; 99283; Q9967

== ENCOUNTER 2019-10-16 11:58 | Observation (INO) | payer MEDICARE, BC ==
--- OUTSIDE RECORDS SUMMARY | 2019-10-16 13:06 | XMS REPORT | Continuity of Care Document ---
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 Onset: 06/07/2014 Chronic hepatitis Rah Huitron M.D. Onset: 06/10/2014 Arthropathy Rah Huitron M.D. Onset: 06/10/2014 Degenerative joint disease involving multiple Harvey Mathews M.D. Onset: joints Immunologic Harvey Mathews M.D. Onset: 11/07/2015 Malignant neoplasm of upper lobe, bronchus or Harvey Mathews M.D. Onset: lung Arthralgia of the pelvic region and thigh Harvey Mathews M.D. Onset: 2015 Polyarthropathy Harvey Mathews M.D. Onset: 11/07/2015 Social History Type Date Description Comments Sex Unknown Tobacco Use Start: Unknown End: Former Cigarette Smoker Unknown ETOH Use Occasionally consumes wine Tobacco Use Start: Unknown End: Patient is a former smoker Unknown Smoking Status Reviewed: 09/05/19 Patient is a former smoker Exercise Type/Frequency Exercises rarely Allergies, Adverse Reactions, Alerts Active Allergies Reaction Severity Comments Date Penicillins Urticaria Severe 06/07/2014 Medications Active Medications SIG Qnty Indications Ordering Provider Date Wellbutrin SR 1 by mouth every Unknown 150mg Tablets day ER 12HR Amlodipine Besylate 1 by mouth every Unknown 5mg day Tablets Levothyroxine Sodium 1 by mouth every Unknown 100mcg day Solution Rec Nicotrol use every 2 hours Unknown 10mg Inhaler as needed for nicotine cravings. Celexa 1/2 by mouth Unknown 20mg Tablets every day Omeprazole 1 by mouth every Unknown 20mg Capsules DR day Oxycodone HCL 1 tab by mouth Unknown 10mg Tablets every 4 hours as needed pain Fentanyl apply one patch Unknown 25mcg/HR Patches once every 3 days 72HR Carafate 1 gram (10 ml) Unknown 1GM/10ML four times per Suspension day on empty stomach as needed Miracle Mouthwash Unknown Medications Administered in Office Medication SIG Qnty Indications Ordering Provider Date Inj, Regadenoson, 0.1 MG Rik Alberts, DO [facility] 05/15/2019 Injection Technetium TC 99M Rik Alberts, DO [facility] 05/15/2019 Tetrofosmin, Per Unit Dose Up To 40 Millicuries Injection Technetium TC 99M Rik Alberts, DO [facility] 05/15/2019 Tetrofosmin, Per Unit Dose Up To 40 Millicuries Injection Immunizations CPT Code Status Date Vaccine Reaction Lot # [id number] Given 08/21/2018 Fluzone High Dose no immediate reaction [id number] noted [id number] Given 06/23/2015 Influenza Virus Vaccine, Quadrivalent, Split, Preservative Free Vital Signs Date Vital Result Comment 09/05/2019 1:56pm Height 64.5 inches 5'4.50" Weight 98.00 lb with shoes Heart Rate 58 /min BP Systolic Sitting 120 mmHg Lue pediatric cuff BP Diastolic Sitting 90 mmHg Lue pediatric cuff BP Systolic Standing 150 mmHg Lue pediatric cuff BP Diastolic Standing 90 mmHg Lue pediatric cuff BP Systolic Lying Down 146 mmHg Lue pediatric cuff BP Diastolic Lying Down 84 mmHg Lue pediatric cuff Respiratory Rate 15 /min BMI (Body Mass Index) 16.6 kg/m2 06/08/2019 1:57pm Height 64.5 inches 5'4.50" Weight 113.00 lb with shoes Heart Rate 80 /min BP Systolic Sitting 130 mmHg Lue BP Diastolic Sitting 75 mmHg Lue BP Systolic Standing 130 mmHg Lue BP Diastolic Standing 70 mmHg Lue BMI (Body Mass Index) 19.1 kg/m2 Ejection Fraction 55-60% Echo 04/06/19 Results Test Acquired Date Facility Test Result H/L Range Note CBC Auto 08/31/2019 [facility] White Blood 6.0 10^3/uL Normal 3.5-10.[address] [place] [address] [phone] Red Blood Count 3.34 10^6/uL Low 3.70-4.87 Hemoglobin 12.4 g/dL Normal 12.0-16.0 Hematocrit 36 % Normal 35-47 Mean Corpuscular Volume 107 fL High 80-97 Mean Corpuscular Hemoglobin 37 pg High 27-31 Mean Corpuscular HGB Conc 35 g/dL Normal 31-36 Red Cell Distribution Width 16 % High 10-15 Platelet Count 268 10^3/uL Normal 150-450 Mean Platelet Volume 8.4 fL Normal 7.4-10.4 Abs Neutrophils 5.5 10^3/uL Normal 1.5-7.7 Abs Lymphocytes 0.2 10^3/uL Low 1.0-4.8 Abs Monocytes 0.1 10^3/uL Normal 0-0.8 Abs Eosinophils 0.2 10^3/uL Normal 0-0.6 Abs Basophils 0.0 10^3/uL Normal 0-0.2 Abs Nucleated RBC 0.0 10^3/uL Granulocyte % 91.5 % Lymphocyte % 4.0 % Monocyte % 0.9 % Eosinophil % 2.9 % Basophil % 0.7 % Nucleated Red Blood Cells % 0.0 Laboratory test 08/31/2019 [facility] Potassium 4.7 mmol/L Normal 3.5-5.[address] [place] [address] [phone] Ast Redraw 32 U/L Normal 13-39 Comp Metabolic Panel 08/31/2019 [facility] Sodium 126 mmol/L Low 135-[address] [place] [address] [phone] Potassium TNP mmol/L 3.5-5.0 Chloride 96 mmol/L Low 101-111 Glucose 103 mg/dL High 70-100 Blood Urea Nitrogen 20 mg/dL Normal 6-24 Creatinine 0.60 mg/dL Normal 0.51-0.95 BUN/Creatinine Ratio 33.3 High 8-20 Calcium 9.5 mg/dL Normal 8.6-10.3 Total Protein 9.0 g/dL High 6.4-8.9 Albumin 4.6 g/dL Normal 3.2-5.2 Globulin 4.4 g/dL High 2-4 Albumin/Globulin Ratio 1.0 Normal 1-3 Total Bilirubin 0.50 mg/dL Normal 0.2-1.0 Alkaline Phosphatase 131 U/L High 34-104 Alt 35 U/L Normal 7-52 Ast TNP U/L 13-39 Egfr Non- 100.0 >60 Egfr 121.0 >60 1 Co2 Carbon Dioxide 23 mmol/L Normal 22-32 Anion Gap 7 mmol/L Normal 2-11 Laboratory test 08/31/2019 [facility] Magnesium 2.7 mg/dL Normal 1.9-2.7 [address] [place] [address] [phone] CBC Auto Diff 08/27/2019 [facility] White Blood 5.5 Normal 3.5 -10.[address] Count 10^3/uL [place], [place] [id number] [phone] Red Blood Count 2.98 10^6/uL Low 3.70-4.87 Hemoglobin 10.9 g/dL Low 12.0-16.0 Hematocrit 32 % Low 35-47 Mean Corpuscular Volume 108 fL High 80-97 Mean Corpuscular Hemoglobin 37 pg High 27-31 Mean Corpuscular HGB Conc 34 g/dL Normal 31-36 Red Cell Distribution Width 17 % High 10-15 Platelet Count 331 10^3/uL Normal 150-450 Mean Platelet Volume 7.6 fL Normal 7.4-10.4 Abs Neutrophils 4.4 10^3/uL Normal 1.5-7.7 Abs Lymphocytes 0.4 10^3/uL Low 1.0-4.8 Abs Monocytes 0.4 10^3/uL Normal 0-0.8 Abs Eosinophils 0.3 10^3/uL Normal 0-0.6 Abs Basophils 0.1 10^3/uL Normal 0-0.2 Abs Nucleated RBC 0.0 10^3/uL Granulocyte % 78.7 % Lymphocyte % 8.1 % Monocyte % 7.5 % Eosinophil % 4.6 % Basophil % 1.1 % Nucleated Red Blood Cells % 0.3 Comp Metabolic Panel 08/27/2019 [facility] Sodium 134 mmol/L Low 135-145 [address] [place] [address] [phone] Potassium 4.1 mmol/L Normal 3.5-5.0 Chloride 99 mmol/L Low 101-111 Co2 Carbon Dioxide 29 mmol/L Normal 22-32 Anion Gap 6 mmol/L Normal 2-11 Glucose 107 mg/dL High 70-100 Blood Urea Nitrogen 16 mg/dL Normal 6-24 Creatinine 0.65 mg/dL Normal 0.51-0.95 BUN/Creatinine Ratio 24.6 High 8-20 Calcium 10.0 mg/dL Normal 8.6-10.3 Total Protein 7.5 g/dL Normal 6.4-8.9 Albumin 3.9 g/dL Normal 3.2-5.2 Globulin 3.6 g/dL Normal 2-4 Albumin/Globulin Ratio 1.1 Normal 1-3 Total Bilirubin 0.50 mg/dL Normal 0.2-1.0 Alkaline Phosphatase 122 U/L High 34-104 Alt 25 U/L Normal 7-52 Ast 35 U/L Normal 13-39 Egfr Non- 91.2 >60 Egfr 110.3 >60 3 Laboratory test 08/27/2019 [facility] Magnesium 1.9 mg/dL Normal 1.9-2.7 finding [address] [place] [address] [phone] Comp Metabolic 07/27/2019 [facility] Sodium 138 mmol/L Normal 135-145 Panel [address] [place] [address] [phone] Potassium 3.6 mmol/L Normal 3.5-5.0 Chloride 101 mmol/L Normal 101-111 Co2 Carbon Dioxide 30 mmol/L Normal 22-32 Anion Gap 7 mmol/L Normal 2-11 Glucose 101 mg/dL High 70-100 Blood Urea Nitrogen 15 mg/dL Normal 6-24 Creatinine 0.63 mg/dL Normal 0.51-0.95 BUN/Creatinine Ratio 23.8 High 8-20 Calcium 9.8 mg/dL Normal 8.6-10.3 Total Protein 6.8 g/dL Normal 6.4-8.9 Albumin 4.0 g/dL Normal 3.2-5.2 Globulin 2.8 g/dL Normal 2-4 Albumin/Globulin Ratio 1.4 Normal 1-3 Total Bilirubin 0.50 mg/dL Normal 0.2-1.0 Alkaline Phosphatase 88 U/L Normal 34-104 Alt 15 U/L Normal 7-52 Ast 23 U/L Normal 13-39 Egfr Non- 94.5 >60 Egfr 114.4 >60 4 Laboratory test 07/27/2019 [facility] Magnesium 1.9 mg/dL Normal 1.9-2.7 finding [address] [place] [address] [phone] Laboratory test 07/25/2019 [facility] Magnesium 1.8 mg/dL Low 1.9-2.7 finding [address] [place] [address] [phone] Comp Metabolic 07/25/2019 [facility] Sodium 136 mmol/L Normal 135-145 Panel [address] [place] [address] [phone] Potassium 3.9 mmol/L Normal 3.5-5.0 Chloride 101 mmol/L Normal 101-111 Co2 Carbon Dioxide 26 mmol/L Normal 22-32 Anion Gap 9 mmol/L Normal 2-11 Glucose 96 mg/dL Normal 70-100 Blood Urea Nitrogen 16 mg/dL Normal 6-24 Creatinine 0.61 mg/dL Normal 0.51-0.95 BUN/Creatinine Ratio 26.2 High 8-20 Calcium 9.9 mg/dL Normal 8.6-10.3 Total Protein 7.0 g/dL Normal 6.4-8.9 Albumin 4.1 g/dL Normal 3.2-5.2 Globulin 2.9 g/dL Normal 2-4 Albumin/Globulin Ratio 1.4 Normal 1-3 Total Bilirubin 0.50 mg/dL Normal 0.2-1.0 Alkaline Phosphatase 77 U/L Normal 34-104 Alt 13 U/L Normal 7-52 Ast 18 U/L Normal 13-39 Egfr Non- 98.1 >60 Egfr 118.7 >60 5 CBC Auto 07/25/2019 [facility] White Blood 1.4 10^3/uL Low 3.5 -10.[address] [place] [address] [phone] Red Blood Count 2.98 10^6/uL Low 3.70-4.87 Hemoglobin 11.0 g/dL Low 12.0-16.0 Hematocrit 32 % Low 35-47 Mean Corpuscular Volume 106 fL High 80-97 Mean Corpuscular Hemoglobin 37 pg High 27-31 Mean Corpuscular HGB Conc 35 g/dL Normal 31-36 Red Cell Distribution Width 14 % Normal 10-15 Platelet Count 156 10^3/uL Normal 150-450 Mean Platelet Volume 7.4 fL Normal 7.4-10.4 Abs Neutrophils 1.0 10^3/uL Low 1.5-7.7 Abs Lymphocytes 0.2 10^3/uL Low 1.0-4.8 Abs Monocytes 0.2 10^3/uL Normal 0-0.8 Abs Eosinophils 0.0 10^3/uL Normal 0-0.6 Abs Basophils 0.0 10^3/uL Normal 0-0.2 Abs Nucleated RBC 0.0 10^3/uL Granulocyte % 73.3 % Lymphocyte % 11.1 % Monocyte % 14.0 % Eosinophil % 0.9 % Basophil % 0.7 % Nucleated Red Blood Cells % 0.1 CBC Auto 07/16/2019 [facility] White Blood 1.9 10^3/uL Low 3.5 -10.[address] [place] [address] [phone] Red Blood Count 3.03 10^6/uL Low 3.70-4.87 Hemoglobin 10.9 g/dL Low 12.0-16.0 Hematocrit 32 % Low 35-47 Mean Corpuscular Volume 105 fL High 80-97 Mean Corpuscular Hemoglobin 36 pg High 27-31 Mean Corpuscular HGB Conc 34 g/dL Normal 31-36 Red Cell Distribution Width 14 % Normal 10-15 Platelet Count 102 10^3/uL Low 150-450 Mean Platelet Volume 7.2 fL Low 7.4-10.4 Abs Neutrophils 1.6 10^3/uL Normal 1.5-7.7 Abs Lymphocytes 0.2 10^3/uL Low 1.0-4.8 Abs Monocytes 0.1 10^3/uL Normal 0-0.8 Abs Eosinophils 0.0 10^3/uL Normal 0-0.6 Abs Basophils 0.0 10^3/uL Normal 0-0.2 Abs Nucleated RBC 0.0 10^3/uL Granulocyte % 85.7 % Lymphocyte % 8.3 % Monocyte % 4.4 % Eosinophil % 1.1 % Basophil % 0.5 % Nucleated Red Blood Cells % 0.0 Comp Metabolic 07/16/2019 [facility] Sodium 137 mmol/L Normal 135-[address] [place] [address] [phone] Potassium 4.1 mmol/L Normal 3.5-5.0 Chloride 100 mmol/L Low 101-111 Co2 Carbon Dioxide 33 mmol/L High 22-32 Anion Gap 4 mmol/L Normal 2-11 Glucose 126 mg/dL High 70-100 Blood Urea Nitrogen 9 mg/dL Normal 6-24 Creatinine 0.57 mg/dL Normal 0.51-0.95 BUN/Creatinine Ratio 15.8 Normal 8-20 Calcium 9.4 mg/dL Normal 8.6-10.3 Total Protein 6.6 g/dL Normal 6.4-8.9 Albumin 4.1 g/dL Normal 3.2-5.2 Globulin 2.5 g/dL Normal 2-4 Albumin/Globulin Ratio 1.6 Normal 1-3 Total Bilirubin 0.60 mg/dL Normal 0.2-1.0 Alkaline Phosphatase 80 U/L Normal 34-104 Alt 17 U/L Normal 7-52 Ast 22 U/L Normal 13-39 Egfr Non- 106.1 >60 Egfr 128.4 >60 6 CBC Auto 07/09/2019 [facility] White Blood 2.5 10^3/uL Low 3.5 -10.[address] [place] [address] [phone] Red Blood Count 3.21 10^6/uL Low 3.70-4.87 Hemoglobin 11.6 g/dL Low 12.0-16.0 Hematocrit 34 % Low 35-47 Mean Corpuscular Volume 104 fL High 80-97 Mean Corpuscular Hemoglobin 36 pg High 27-31 Mean Corpuscular HGB Conc 35 g/dL Normal 31-36 Red Cell Distribution Width 14 % Normal 10-15 Platelet Count 132 10^3/uL Low 150-450 Mean Platelet Volume 7.5 fL Normal 7.4-10.4 Abs Neutrophils 2.1 10^3/uL Normal 1.5-7.7 Abs Lymphocytes 0.2 10^3/uL Low 1.0-4.8 Abs Monocytes 0.1 10^3/uL Normal 0-0.8 Abs Eosinophils 0.0 10^3/uL Normal 0-0.6 Abs Basophils 0.0 10^3/uL Normal 0-0.2 Abs Nucleated RBC 0.0 10^3/uL Granulocyte % 84.1 % Lymphocyte % 8.3 % Monocyte % 4.9 % Eosinophil % 1.6 % Basophil % 1.1 % Nucleated Red Blood Cells % 0.0 Comp Metabolic 07/09/2019 [facility] Sodium 135 mmol/L Normal 135-[address] [place] [address] [phone] Potassium 3.9 mmol/L Normal 3.5-5.0 Chloride 99 mmol/L Low 101-111 Co2 Carbon Dioxide 32 mmol/L Normal 22-32 Anion Gap 4 mmol/L Normal 2-11 Glucose 89 mg/dL Normal 70-100 Blood Urea Nitrogen 8 mg/dL Normal 6-24 Creatinine 0.63 mg/dL Normal 0.51-0.95 BUN/Creatinine Ratio 12.7 Normal 8-20 Calcium 9.8 mg/dL Normal 8.6-10.3 Total Protein 6.9 g/dL Normal 6.4-8.9 Albumin 4.3 g/dL Normal 3.2-5.2 Globulin 2.6 g/dL Normal 2-4 Albumin/Globulin Ratio 1.7 Normal 1-3 Total Bilirubin 0.60 mg/dL Normal 0.2-1.0 Alkaline Phosphatase 89 U/L Normal 34-104 Alt 17 U/L Normal 7-52 Ast 24 U/L Normal 13-39 Egfr Non- 94.5 >60 Egfr 114.4 >60 7 CBC Auto 07/02/2019 [facility] White Blood 3.0 10^3/uL Low 3.5 -10.[address] [place] [address] [phone] Red Blood Count 3.56 10^6/uL Low 3.70-4.87 Hemoglobin 12.6 g/dL Normal 12.0-16.0 Hematocrit 37 % Normal 35-47 Mean Corpuscular Volume 103 fL High 80-97 Mean Corpuscular Hemoglobin 35 pg High 27-31 Mean Corpuscular HGB Conc 34 g/dL Normal 31-36 Red Cell Distribution Width 14 % Normal 10-15 Platelet Count 231 10^3/uL Normal 150-450 Mean Platelet Volume 7.5 fL Normal 7.4-10.4 Abs Neutrophils 2.5 10^3/uL Normal 1.5-7.7 Abs Lymphocytes 0.2 10^3/uL Low 1.0-4.8 Abs Monocytes 0.2 10^3/uL Normal 0-0.8 Abs Eosinophils 0.0 10^3/uL Normal 0-0.6 Abs Basophils 0.0 10^3/uL Normal 0-0.2 Abs Nucleated RBC 0.0 10^3/uL Granulocyte % 82.9 % Lymphocyte % 8.2 % Monocyte % 7.2 % Eosinophil % 1.1 % Basophil % 0.6 % Nucleated Red Blood Cells % 0.1 Comp Metabolic 07/02/2019 [facility] Sodium 136 mmol/L Normal 135-145 Panel [address] [place] [address] [phone] Potassium 4.3 mmol/L Normal 3.5-5.0 Chloride 101 mmol/L Normal 101-111 Co2 Carbon Dioxide 32 mmol/L Normal 22-32 Anion Gap 3 mmol/L Normal 2-11 Glucose 100 mg/dL Normal 70-100 Blood Urea Nitrogen 11 mg/dL Normal 6-24 Creatinine 0.57 mg/dL Normal 0.51-0.95 BUN/Creatinine Ratio 19.3 Normal 8-20 Calcium 9.9 mg/dL Normal 8.6-10.3 Total Protein 7.0 g/dL Normal 6.4-8.9 Albumin 4.5 g/dL Normal 3.2-5.2 Globulin 2.5 g/dL Normal 2-4 Albumin/Globulin Ratio 1.8 Normal 1-3 Total Bilirubin 0.40 mg/dL Normal 0.2-1.0 Alkaline Phosphatase 95 U/L Normal 34-104 Alt 21 U/L Normal 7-52 Ast 27 U/L Normal 13-39 Egfr Non- 106.1 >60 Egfr 128.4 >60 8 Comp Metabolic 06/25/2019 [facility] Sodium 135 mmol/L Normal 135-145 Panel [address] [place] [address] [phone] Potassium 4.5 mmol/L Normal 3.5-5.0 Chloride 102 mmol/L Normal 101-111 Co2 Carbon Dioxide 30 mmol/L Normal 22-32 Anion Gap 3 mmol/L Normal 2-11 Glucose 119 mg/dL High 70-100 Blood Urea Nitrogen 10 mg/dL Normal 6-24 Creatinine 0.58 mg/dL Normal 0.51-0.95 BUN/Creatinine Ratio 17.2 Normal 8-20 Calcium 9.9 mg/dL Normal 8.6-10.3 Total Protein 6.7 g/dL Normal 6.4-8.9 Albumin 4.3 g/dL Normal 3.2-5.2 Globulin 2.4 g/dL Normal 2-4 Albumin/Globulin Ratio 1.8 Normal 1-3 Total Bilirubin 0.50 mg/dL Normal 0.2-1.0 Alkaline Phosphatase 99 U/L Normal 34-104 Alt 19 U/L Normal 7-52 Ast 21 U/L Normal 13-39 Egfr Non- 104.0 >60 Egfr 125.9 >60 9 CBC Auto 06/25/2019 [facility] White Blood 2.9 10^3/uL Low 3.5 -10.[address] [place] [address] [phone] Red Blood Count 3.55 10^6/uL Low 3.70-4.87 Hemoglobin 12.5 g/dL Normal 12.0-16.0 Hematocrit 37 % Normal 35-47 Mean Corpuscular Volume 103 fL High 80-97 Mean Corpuscular Hemoglobin 35 pg High 27-31 Mean Corpuscular HGB Conc 34 g/dL Normal 31-36 Red Cell Distribution Width 14 % Normal 10-15 Platelet Count 225 10^3/uL Normal 150-450 Mean Platelet Volume 8.0 fL Normal 7.4-10.4 Abs Neutrophils 2.4 10^3/uL Normal 1.5-7.7 Abs Lymphocytes 0.3 10^3/uL Low 1.0-4.8 Abs Monocytes 0.1 10^3/uL Normal 0-0.8 Abs Eosinophils 0.1 10^3/uL Normal 0-0.6 Abs Basophils 0.0 10^3/uL Normal 0-0.2 Abs Nucleated RBC 0.0 10^3/uL Granulocyte % 83.3 % Lymphocyte % 9.4 % Monocyte % 4.7 % Eosinophil % 1.7 % Basophil % 0.9 % Nucleated Red Blood Cells % 0.1 CBC Auto 06/19/2019 [facility] White Blood 3.3 10^3/uL Low 3.5 -10.[address] [place] [address] [phone] Red Blood Count 3.62 10^6/uL Low 3.70-4.87 Hemoglobin 12.6 g/dL Normal 12.0-16.0 Hematocrit 38 % Normal 35-47 Mean Corpuscular Volume 103 fL High 80-97 Mean Corpuscular Hemoglobin 35 pg High 27-31 Mean Corpuscular HGB Conc 34 g/dL Normal 31-36 Red Cell Distribution Width 16 % High 10-15 Platelet Count 216 10^3/uL Normal 150-450 Mean Platelet Volume 8.2 fL Normal 7.4-10.4 Abs Neutrophils 2.5 10^3/uL Normal 1.5-7.7 Abs Lymphocytes 0.5 10^3/uL Low 1.0-4.8 Abs Monocytes 0.2 10^3/uL Normal 0-0.8 Abs Eosinophils 0.1 10^3/uL Normal 0-0.6 Abs Basophils 0.0 10^3/uL Normal 0-0.2 Abs Nucleated RBC 0.0 10^3/uL Granulocyte % 74.1 % Lymphocyte % 14.7 % Monocyte % 6.8 % Eosinophil % 3.1 % Basophil % 1.3 % Nucleated Red Blood Cells % 0.2 Comp Metabolic 06/19/2019 [facility] Sodium 136 mmol/L Normal 135-[address] [place] [address] [phone] Chloride 102 mmol/L Normal 101-111 Co2 Carbon Dioxide 31 mmol/L Normal 22-32 Calcium 10.0 mg/dL Normal 8.6-10.3 Albumin 4.6 g/dL Normal 3.2-5.2 Total Bilirubin 0.40 mg/dL Normal 0.2-1.0 Glucose 126 mg/dL High 70-100 Blood Urea Nitrogen 12 mg/dL Normal 6-24 Creatinine 0.63 mg/dL Normal 0.51-0.95 BUN/Creatinine Ratio 19.0 Normal 8-20 Total Protein 7.2 g/dL Normal 6.4-8.9 Globulin 2.6 g/dL Normal 2-4 Albumin/Globulin Ratio 1.8 Normal 1-3 Alkaline Phosphatase 99 U/L Normal 34-104 Alt 23 U/L Normal 7-52 Egfr Non- 94.5 >60 Egfr 114.4 >60 10 Potassium TNP mmol/L 3.5-5.0 11 Anion Gap 3 mmol/L Normal 2-11 Ast TNP U/L 13-39 12 Laboratory test 06/19/2019 [facility] Potassium 3.7 mmol/L Normal 3.5-5.[address] [address] [phone] Ast Redraw 24 U/L Normal 13-39 CBC Auto 06/11/2019 [facility] White Blood 5.0 10^3/uL Normal 3.5-10.[address] [place] [address] [phone] Red Blood Count 3.65 10^6/uL Low 3.70-4.87 Hemoglobin 12.5 g/dL Normal 12.0-16.0 Hematocrit 37 % Normal 35-47 Mean Corpuscular Volume 102 fL High 80-97 Mean Corpuscular Hemoglobin 34 pg High 27-31 Mean Corpuscular HGB Conc 34 g/dL Normal 31-36 Red Cell Distribution Width 17 % High 10-15 Platelet Count 251 10^3/uL Normal 150-450 Mean Platelet Volume 8.4 fL Normal 7.4-10.4 Abs Neutrophils 3.4 10^3/uL Normal 1.5-7.7 Abs Lymphocytes 0.9 10^3/uL Low 1.0-4.8 Abs Monocytes 0.4 10^3/uL Normal 0-0.8 Abs Eosinophils 0.2 10^3/uL Normal 0-0.6 Abs Basophils 0.1 10^3/uL Normal 0-0.2 Abs Nucleated RBC 0.0 10^3/uL Granulocyte % 68.2 % Lymphocyte % 17.9 % Monocyte % 8.6 % Eosinophil % 4.1 % Basophil % 1.2 % Nucleated Red Blood Cells % 0.0 Comp Metabolic 06/11/2019 [facility] Sodium 135 mmol/L Normal 135-[address] [place] [address] [phone] Chloride 100 mmol/L Low 101-111 Co2 Carbon Dioxide 30 mmol/L Normal 22-32 Glucose 119 mg/dL High 70-100 Blood Urea Nitrogen 10 mg/dL Normal 6-24 Creatinine 0.63 mg/dL Normal 0.51-0.95 BUN/Creatinine Ratio 15.9 Normal 8-20 Calcium 10.3 mg/dL Normal 8.6-10.3 Total Protein 7.1 g/dL Normal 6.4-8.9 Albumin 4.4 g/dL Normal 3.2-5.2 Globulin 2.7 g/dL Normal 2-4 Albumin/Globulin Ratio 1.6 Normal 1-3 Total Bilirubin 0.40 mg/dL Normal 0.2-1.0 Alkaline Phosphatase 92 U/L Normal 34-104 Alt 23 U/L Normal 7-52 Egfr Non- 94.5 >60 Egfr 114.4 >60 13 Potassium 4.4 mmol/L Normal 3.5-5.0 Anion Gap 5 mmol/L Normal 2-11 Ast 25 U/L Normal 13-39 Inr/Protime 06/06/2019 [facility] Inr 1.01 Normal 0.82-1.[address] [place], [place] [id number] [phone] Laboratory test 06/06/2019 [facility] Partial 38.5 High 26.0- 38.[address] [address] Time PTT [phone] Platelet Count 06/06/2019 [facility] Platelet 284 Normal 150- [address] Count 10^3/uL [place], [place] [id number] [phone] Mean Platelet Volume 8.1 fL Normal 7.4-10.4 Laboratory test 06/04/2019 [facility] Point of 104 mg/dL High 70-[address] [place] [address] [phone] Comp Metabolic 05/14/2019 [facility] Sodium 136 mmol/L Normal 135-[address] [place], [place] [id number] [phone] Potassium 4.5 mmol/L Normal 3.5-5.0 Chloride 101 mmol/L Normal 101-111 Co2 Carbon Dioxide 27 mmol/L Normal 22-32 Anion Gap 8 mmol/L Normal 2-11 Glucose 114 mg/dL High 70-100 Blood Urea Nitrogen 8 mg/dL Normal 6-24 Creatinine 0.58 mg/dL Normal 0.51-0.95 BUN/Creatinine Ratio 13.8 Normal 8-20 Calcium 10.0 mg/dL Normal 8.6-10.3 Total Protein 7.2 g/dL Normal 6.4-8.9 Albumin 4.4 g/dL Normal 3.2-5.2 Globulin 2.8 g/dL Normal 2-4 Albumin/Globulin Ratio 1.6 Normal 1-3 Total Bilirubin 0.50 mg/dL Normal 0.2-1.0 Alkaline Phosphatase 100 U/L Normal 34-104 Alt 31 U/L Normal 7-52 Ast 37 U/L Normal 13-39 Egfr Non- 104.0 >60 Egfr 125.9 >60 16 Laboratory test 05/10/2019 [facility] Ferritin 1252.3 ng/mL High 11-[address] [place] [address] [phone] Iron & Iron 05/10/2019 [facility] Iron 173 g/dL Normal 50- 212 Binding Capacity [address] [place] [address] [phone] Unsaturated Iron Binding 135 g/dL Total Iron Binding Capacity 308 g/dL Normal 250-450 Transferrin 220 mg/dL Normal 203-362 % Iron Saturation 56 % High 15-55 CBC Auto 05/10/2019 [facility] White Blood 5.9 10^3/uL Normal 3.5-10.[address] [place] [address] [phone] Red Blood Count 4.10 10^6/uL Normal 3.70-4.87 Hemoglobin 13.8 g/dL Normal 12.0-16.0 Hematocrit 40 % Normal 35-47 Mean Corpuscular Volume 99 fL High 80-97 Mean Corpuscular Hemoglobin 34 pg High 27-31 Mean Corpuscular HGB Conc 34 g/dL Normal 31-36 Red Cell Distribution Width 23 % High 10-15 17 Platelet Count 271 10^3/uL Normal 150-450 Mean Platelet Volume 7.6 fL Normal 7.4-10.4 Abs Neutrophils 4.2 10^3/uL Normal 1.5-7.7 Abs Lymphocytes 1.1 10^3/uL Normal 1.0-4.8 Abs Monocytes 0.3 10^3/uL Normal 0-0.8 Abs Eosinophils 0.3 10^3/uL Normal 0-0.6 Abs Basophils 0.1 10^3/uL Normal 0-0.2 Abs Nucleated RBC 0.0 10^3/uL Granulocyte % 70.1 % Lymphocyte % 18.7 % Monocyte % 5.7 % Eosinophil % 4.4 % Basophil % 1.1 % Nucleated Red Blood Cells % 0.1 CBC Auto 03/20/2019 [facility] White Blood 6.0 10^3/uL Normal 3.5-10.[address] [place] [address] [phone] Red Blood Count 3.74 10^6/uL Normal 3.70-4.87 Hemoglobin 11.6 g/dL Low 12.0-16.0 Hematocrit 36 % Normal 35-47 Mean Corpuscular Volume 97 fL Normal 80-97 Mean Corpuscular Hemoglobin 31 pg Normal 27-31 Mean Corpuscular HGB Conc 32 g/dL Normal 31-36 Red Cell Distribution Width 22 % High 10.5-15 Platelet Count 308 10^3/uL Normal 150-450 Mean Platelet Volume 8.6 fL Normal 7.4-10.4 Abs Neutrophils 3.9 10^3/uL Normal 1.5-7.7 Abs Lymphocytes 1.2 10^3/uL Normal 1.0-4.8 Abs Monocytes 0.5 10^3/uL Normal 0-0.8 Abs Eosinophils 0.3 10^3/uL Normal 0-0.6 Abs Basophils 0.1 10^3/uL Normal 0-0.2 Abs Nucleated RBC 0.0 10^3/uL Granulocyte % 65.7 % Lymphocyte % 19.7 % Monocyte % 8.8 % Eosinophil % 4.3 % Basophil % 1.5 % Nucleated Red Blood Cells % 0.1 CBC Auto 03/06/2019 [facility] White Blood 5.5 10^3/uL Normal 3.5-10.[address] [place] [address] [phone] Red Blood Count 3.21 10^6/uL Low 3.70-4.87 Hemoglobin 9.7 g/dL Low 12.0-16.0 Hematocrit 30 % Low 35-47 Mean Corpuscular Volume 92 fL Normal 80-97 Mean Corpuscular Hemoglobin 30 pg Normal 27-31 Mean Corpuscular HGB Conc 33 g/dL Normal 31-36 Red Cell Distribution Width 17 % High 10.5-15 Platelet Count 343 10^3/uL Normal 150-450 Mean Platelet Volume 8.0 fL Normal 7.4-10.4 Abs Neutrophils 3.4 10^3/uL Normal 1.5-7.7 Abs Lymphocytes 1.2 10^3/uL Normal 1.0-4.8 Abs Monocytes 0.5 10^3/uL Normal 0-0.8 Abs Eosinophils 0.4 10^3/uL Normal 0-0.6 Abs Basophils 0.1 10^3/uL Normal 0-0.2 Abs Nucleated RBC 0.0 10^3/uL Granulocyte % 60.8 % Lymphocyte % 21.2 % Monocyte % 8.8 % Eosinophil % 7.1 % Basophil % 2.1 % Nucleated Red Blood Cells % 0.1 Iron & Iron 03/06/2019 [facility] Total Iron 490 g/dL High 250-[address] [place] [address] Capacity [phone] Transferrin 350 mg/dL Normal 203-362 Iron < 17 g/dL Low 50-212 Unsaturated Iron Binding < 475 g/dL % Iron Saturation 3 % Low 15-55 Laboratory test 03/06/2019 [facility] Ferritin 9.0 ng/mL Low 11-[address] [place] [address] [phone] Vitamin B12 595 pg/mL Normal 180-914 18 1 Because ethnic data is not always readily [...] 15-29 5 Kidney failure <15 (or dialysis) 2 [MG] affected by ICTERUS 3 Because ethnic data is not always [...] 5 Kidney failure <15 (or dialysis) 4 Because ethnic data is not always readily [...] 15-29 5 Kidney failure <15 (or dialysis) 5 Because ethnic data is not always [...] 5 Kidney failure <15 (or dialysis) 6 Because ethnic data is not always readily [...] 15-29 5 Kidney failure <15 (or dialysis) 7 Because ethnic data is not always readily [...] 15-29 5 Kidney failure <15 (or dialysis) 8 Because ethnic data is not always readily [...] 15-29 5 Kidney failure <15 (or dialysis) 9 Because ethnic data is not always readily [...] 15-29 5 Kidney failure <15 (or dialysis) 10 Because ethnic data is not always readily [...] 15-29 5 Kidney failure <15 (or dialysis) 11 Specimen Hemolyzed. Result may not be valid. Unable to report test result due to hemolysis. 12 Unable to report test result due to hemolysis. 13 Because ethnic data is not always readily [...] 15-29 5 Kidney failure <15 (or dialysis) 14 Standard intensity warfarin therapeutic range: 2.0-3.0 High intensity warfarin therapeutic range: 2.5-3.5 15 Copy Lathe Operator: [id number] 16 Because ethnic data is not always readily [...] 15-29 5 Kidney failure <15 (or dialysis) 17 Consistent with Previous Results Reported on 03/20/19 18 Normal Range 180 to 914 Indeterminate Range 145 to 180 Deficient Range <145 Procedures Date Code Description Status 09/05/2019 27322 EKG Tracing & Interpretation Completed 06/08/2019 13935 EKG Tracing & Interpretation Completed 05/15/2019 90974 Stress Test Completed 05/15/2019 87010 Myocardial Perfusion Imaging Tomographic (Spect) Completed Multiple Studies 04/10/2019 93289 EKG Tracing & Interpretation Completed 04/06/2019 06122 ECHO Transthoracic, Real-Time 2D With Doppler And Completed Color Flow 04/06/2019 52350 ECHO Transthoracic, Real-Time 2D With Doppler And Completed Color Flow 09/19/2018 [id number] Bone Mineral Density Test Completed 09/19/2018 [id number] Mammogram Completed Medical Devices Description No Information Available Encounters Type Date Location Provider Dx Diagnosis Office Visit 06/08/2019 [facility] Rik SKaden R94.31 Abnormal 2:20p Of Thermodynamicist Alberts, DO electrocardiogram [ECG] FACC [EKG] C34.10 Malignant neoplasm of upper lobe, unsp bronchus or lung Office Visit 04/10/2019 12:00p [facility] Rik SKaden R06.02 Shortness of Of Thermodynamicist Alberts, DO breath FACC D64.9 Anemia, unspecified R94.31 Abnormal electrocardiogram [ECG] [EKG] C34.10 Malignant neoplasm of upper lobe, unsp bronchus or lung I10 Essential (primary) hypertension F17.200 Nicotine dependence, unspecified, uncomplicated Assessments Date Code Description Provider 09/05/2019 R94.31 Abnormal electrocardiogram [ECG] [EKG] Rik Alberts, DO FACC 06/08/2019 R94.31 Abnormal electrocardiogram [ECG] [EKG] Rik Alberts, DO FACC 06/08/2019 C34.10 Malignant neoplasm of upper lobe, Rik Alberts, DO FACC unspecified bronchus or montserrat 05/15/2019 R06.02 Shortness of breath Rik Alberts, DO FACC 04/10/2019 R06.02 Shortness of breath Rik Alberts, DO FACC 04/10/2019 D64.9 Anemia, unspecified Rik Alberts, DO [facility]ACC 04/10/2019 R94.31 Abnormal electrocardiogram [ECG] [EKG] Rik Alberts, DO FACC 04/10/2019 C34.10 Malignant neoplasm of upper lobe, Rik Alberts, DO FACC unspecified bronchus or montserrat 04/10/2019 I10 Essential (primary) hypertension Rik Alberts, DO FACC 04/10/2019 F17.200 Nicotine dependence, unspecified, Rik Alberts, DO FACC uncomplicated 04/06/2019 R06.00 Dyspnea, unspecified Jhoan Cohen M.D. 04/06/2019 R06.00 Dyspnea, unspecified Traveling ECHO 2 Plan of Treatment Future Appointment(s):03/05/2020 2:00 pm - Rik Alberts DO FACC at [facility]09/05/2019 - Rik Alberts DO FAC94.31 Abnormal electrocardiogram [ECG] [EKG]Follow up:f/u 6 months with ekg Functional Status Description No Information Available Mental Status Description No Information Available Referrals Description No Information Available
[2019-10-16] MEDS: NS 0.9% 1000 ML** 1,000 ML IV SCH (13:26)
[2019-10-16] MEDS ORDERED: HYDROmorphone INJ1* 1 MG/ML SYRINGE IV SLOW PU PRN (13:58)
[2019-10-16] MEDS ORDERED: LORazepam INJ* 2 MG/ML 1 ML VIAL IV PUSH PRN (14:00)
[2019-10-16] MEDS ORDERED: Lorazepam PYXIS KEY PRN (14:00)
[2019-10-16] MEDS ORDERED: NICOTINE 10 MG NASAL SCH (14:00)
[2019-10-16] MEDS: HYDROmorphone INJ* 0.5 MG/0.5 ML SYRINGE IV SLOW PU PRN ×2 (14:21→21:33)
[2019-10-16] MEDS ORDERED: fentaNYL PATCH 25 MCG/HR TRANSDERM SCH (14:30)
[2019-10-16] MEDS ORDERED: fentaNYL PATCH 12 MCG/HR TRANSDERM SCH (15:00)
[2019-10-16] MEDS: fentaNYL Patch Check Q Shift 1 NOTE FOLLOW UP SCH (18:53)
[2019-10-16] MEDS ORDERED: Nicotine Patch Removal NOTE PATCH OFF SCH (21:00)
[2019-10-17] MEDS: NS 0.9% 1000 ML** 1,000 ML IV SCH (02:41)
[2019-10-17] MEDS: HYDROmorphone INJ* 0.5 MG/0.5 ML SYRINGE IV SLOW PU PRN ×2 (04:38→13:03)
[2019-10-17] MEDS: Levothyroxine TAB* 125 MCG TAB PO SCH ×2 (07:41→10:41)
[2019-10-17 08:57] LABS: ABS Lymphocytes 0.3 10^3/ul (1.0-4.8); ABS Monocytes 0.3 10^3/ul (0-0.8); ABS Neutrophils 1.3 10^3/ul (1.5-7.7); Eosinophil % 2.2 %; Hematocrit 32 % (35-47); Lymphocyte % 16.5 %; Mean Corpuscular HGB Conc 35 g/dL (31-36); Mean Corpuscular Hemoglobin 37 pg (27-31); Mean Corpuscular Volume 108 fL (80-97); Mean Platelet Volume 7.7 fL (7.4-10.4); Nucleated Red Blood Cells % 0.3; Platelet Count 135 10^3/uL (150-450); Red Blood Count 2.96 10^6 /uL (3.70-4.87); Red Cell Distribution Width 15 % (10-15); White Blood Count 1.9 10^3/uL (3.5-10.8)
[2019-10-17] MEDS ORDERED: Nicotine PATCH 21 MG/24 HR* PATCH TRANSDERM SCH (09:00)
[2019-10-17] MEDS ORDERED: amLODIPine TAB* 5 MG PO SCH (09:00)
[2019-10-17 09:12] LABS: Albumin 3.5 g/dL (3.2-5.2); Albumin/Globulin Ratio 1.2 (1-3); BUN/Creatinine Ratio 20.3 (8-20); Calcium 9.6 mg/dL (8.6-10.3); EGFR Non-African American 92.6 (>60); Globulin 2.9 g/dL (2-4); Potassium 4.2 mmol/L (3.5-5.0); Total Bilirubin 0.6 mg/dL (0.2-1.0); Total Protein 6.4 g/dL (6.4-8.9)
[2019-10-17] MEDS: Pantoprazole TAB * 40 MG TAB PO SCH ×2 (10:34)
[2019-10-17] MEDS: fentaNYL Patch Check Q Shift 1 NOTE FOLLOW UP SCH (10:35)
[2019-10-17 12:42] VITALS: BP 137/67
[2019-10-17] MEDS ORDERED: oxyCODONE TAB* 5 MG TAB PO ONE (13:12)
== END 2019-10-17 16:24 | disposition home or self-care (01) ==
LOC: MED 13:02
PROVIDERS: ADMIT Internal Medicine Hematology & Oncology; ATTEND Internal Medicine Hematology & Oncology
DX: C34.11 Malignant neoplasm of upper lobe, right bronchus or lung (principal); C78.7 Secondary malignant neoplasm of liver and intrahepatic bile duct; K20.9 Esophagitis, unspecified; R63.0 Anorexia; Z79.899 Other long term (current) drug therapy; F32.9 Major depressive disorder, single episode, unspecified; I10 Essential (primary) hypertension; E03.9 Hypothyroidism, unspecified; M06.9 Rheumatoid arthritis, unspecified; Z87.891 Personal history of nicotine dependence
CPT/HCPCS: 36415; 49440; 49446; 80053; 85025; 85049; 85610; 85730; 99156; 99157; A9270-GY; C1887; G0378; J0690; J1170; J1610; J2060; J2250; J3010; J3490; Q9967